=== PATIENT | female | born 1970 | race Caucasian/White ===

== ENCOUNTER 2020-06-26 14:49 | Outpatient (REF) | payer OTHER, SELFPAY | END 2020-06-26 14:50 | disposition home or self-care (01) | LOC: HO.LAB 14:49 | PROVIDERS: Visit Provider Internal Medicine | DX: Z20.822 Contact with and (suspected) exposure to COVID-19 (principal) | CPT/HCPCS: 36415; C9803; U0003; U0005 ==

== ENCOUNTER 2021-01-03 12:12 | Outpatient (REF) | payer OTHER, SELFPAY ==
[2021-01-03 14:18] LABS: Basophils Percent Auto 0.3 % (0-2); Eosinophils Absolute Auto 0.3 X10*3/uL (0.0-0.4); Eosinophils Percent Auto 2.8 % (0-4); Hematocrit 35.3 % (37-47); Hemoglobin 11.3 g/dl (12.0-16.0); Imm Gran Abs Auto 0.16 X10*3/uL (0.00-0.03); Imm Gran Pct Auto 1.5 % (0.0-0.4); Lymphocytes Absolute Auto 2.4 X10*3/uL (1.2-4.9); Lymphocytes Percent Auto 22.8 % (20-40); Mean Corpuscular Hemoglobin 26.8 pg (27.0-33.0); Mean Corpuscular Volume 83.8 fL (80-98); Mean Platelet Volume 10.6 fL (9.4-12.3); Monocytes Absolute Auto 0.8 X10*3/uL (0.1-1.2); Monocytes Percent Auto 7.1 % (2-11); Neutrophils Percent Auto 65.5 % (45-73); Platelet Count 382 X10*3/uL (160-400); Red Blood Count 4.21 X10*6/uL (4.20-5.50); White Blood Count 10.7 X10*3/uL (4.8-10.8)
[2021-01-03 14:19] LABS: MANUAL DIFF FLAG NO
[2021-01-03 14:41] LABS: Alanine Aminotransferase 19 U/L (0-31); Albumin Level 3.7 g/dL (3.5-5.0); Alkaline Phosphatase 111 U/L (39-117); Anion Gap 10 (12-20); Aspartate Amino Transferase 13 U/L (5-31); Bilirubin Total 0.4 mg/dL (0.0-1.0); Blood Urea Nitrogen 9 mg/dL (9-16); Calcium 9.6 mg/dL (8.4-10.2); Carbon Dioxide 32 mmol/L (22-29); Chloride 104 mmol/L (96-108); Cholesterol 226 mg/dL; Estimated Glomerular Filt Rate > 60; Glucose Random 113 mg/dL (60-115); HDL Cholesterol 44 mg/dL; LDL Cholesterol Calculated 152 mg/dl; Potassium 4.5 mmol/L (3.3-5.1); Sodium 141 mmol/L (135-145); Total Protein 6.9 g/dL (6.5-8.0); Triglycerides 153 mg/dL
[2021-01-03 14:47] LABS: B Type Natriuretic Peptide 26 pg/mL (<100); Troponin-I High Sensitivity < 3.5 ng/L (<3.5-17.0)
[2021-01-03 15:01] LABS: Thyroid Stimulating Hormone 3.94 uIU/mL (0.32-4.0)
== END 2021-01-03 12:13 | disposition home or self-care (01) ==
LOC: HO.WFDLDS 12:12
PROVIDERS: Visit Provider Family Medicine
DX: Z00.00 Encounter for general adult medical examination without abnormal findings (principal); Z20.822 Contact with and (suspected) exposure to COVID-19; R05 Cough; R07.89 Other chest pain; R06.02 Shortness of breath; I50.9 Heart failure, unspecified; E03.9 Hypothyroidism, unspecified
CPT/HCPCS: 36415; 80053; 80061; 83880; 84443; 84484; 85025; U0003; U0005

== ENCOUNTER → 2021-02-05 14:58 | Outpatient (BNVA) | payer OTHER, SELFPAY | PROVIDERS: PCP Family Medicine; Referring Provider Family Medicine; Visit Provider Internal Medicine | DX: R07.2 Precordial pain (principal); R06.02 Shortness of breath; I69.951 Hemiplegia and hemiparesis following unspecified cerebrovascular disease affecting right dominant side; I10 Essential (primary) hypertension; E66.01 Morbid (severe) obesity due to excess calories; Z68.43 Body mass index [BMI] 50.0-59.9, adult; Z88.1 Allergy status to other antibiotic agents; Z79.899 Other long term (current) drug therapy | CPT/HCPCS: 99202 ==

== ENCOUNTER → 2021-02-12 10:01 | Outpatient (REF) | payer OTHER, SELFPAY ==
--- NOTE | 2021-02-12 10:05 | CA_ITS ---
Acquisition Time: 2021-02-12 10:08:43 Total Exercise Time: 00:02:28 Test Indications: Dyspnea Medications: AMLODIPINE ALBUTEROL FUROSEMUDE HCTZ METOPROLOL OMEPRAZOLE Protocol: SOHAIL Max HR: 125 BPM 73% of Pred: 170 BPM Max BP: 164/084 mmHG Max Work Load: 4.6 METS Exercise stress test with exercise 2 min 28 sec of Sohail protocol, with moderate shortness , fatigue and chest tightness with request to stop exercise, without arrythmia, with normotensive response to exercise, with nondiagnostic EKG due to suboptimal heart rate, exercise time and baselne abnormality. Symptoms resolved in recovery. Test reviewed with Dr Parish. Will order a pharmacological nuclear stress test for further evaluation. Referred By: Henrry Asencio Overread By: MARGOTH LARSON
== END ==
LOC: HO.CARD 10:01
PROVIDERS: PCP Family Medicine; Visit Provider Family Medicine
DX: R07.89 Other chest pain (principal); R06.02 Shortness of breath
CPT/HCPCS: 93017

== ENCOUNTER 2021-02-25 08:52 | Outpatient (REF) | payer OTHER, SELFPAY ==
[2021-02-25 11:22] LABS: Alanine Aminotransferase 21 U/L (0-31); Albumin Level 3.8 g/dL (3.5-5.0); Alkaline Phosphatase 94 U/L (39-117); Anion Gap 10 (12-20); Aspartate Amino Transferase 17 U/L (5-31); Bilirubin Total 0.3 mg/dL (0.0-1.0); Blood Urea Nitrogen 9 mg/dL (9-16); Carbon Dioxide 30 mmol/L (22-29); Chloride 101 mmol/L (96-108); Estimated Glomerular Filt Rate > 60; Glucose Random 105 mg/dL (60-115); Iron 43 mcg/dL (30-160); Percent Iron Saturation 12 % (15-50); Potassium 3.9 mmol/L (3.3-5.1); Sodium 137 mmol/L (135-145); Total Iron Binding Capacity 371 mcg/dL (228-428); Total Protein 6.8 g/dL (6.5-8.0); Unsaturated Iron Binding 328 ug/dL
[2021-02-25 11:44] LABS: Ferritin 33 ng/mL (10-250)
[2021-02-26 11:41] LABS: Transferrin 302 mg/dL (188-341)
== END 2021-02-25 08:53 | disposition home or self-care (01) ==
LOC: HO.LAB 08:52
PROVIDERS: PCP Family Medicine; Referring Provider Family Medicine; Visit Provider Nurse Practitioner Family
DX: G47.9 Sleep disorder, unspecified (principal); G25.81 Restless legs syndrome; R06.02 Shortness of breath; D64.9 Anemia, unspecified
CPT/HCPCS: 36415; 80053; 82728; 83540; 84466; 99202

== ENCOUNTER → 2021-03-05 08:31 | Outpatient (REF) | payer OTHER, SELFPAY ==
--- NOTE | ~2021-03-05 | NM_ITS ---
Lexiscan Myocardial perfusion study Indication: Chest pain, assess for coronary disease and ischemia Technique: The patient was brought in for a Lexiscan perfusion study on 03/05/2021 and was injected 0.4 mg of Lexiscan intravenously. Within a minute of this injection 45 mCi of sestamibi was given intravenously. Images were obtained using the SPECT gamma camera interlaced with the gating device. Images were obtained in supine position. Resting perfusion study was performed on 04/02/2021. Patient was administered 45 mCi of sestamibi intravenously at rest. Images were then obtained in supine position. Total DLP 196mGy-cm. Images were processed with the software and compared side to side in short axis, horizontal long axis and vertical long axis views. Findings: Raw acquisition was reviewed. The stress perfusion study showed diminished tracer uptake along the anterior wall; distal anterolateral wall; basal septum. No significant improvement with CT attenuation correction and in fact it looks slightly worse. The gated study shows low normal LV systolic function with calculated LVEF of 53%. LV cavity is normal in size. The gated study shows normal wall thickening and contraction of segments. Resting study shows no significant perfusion abnormality. Gating at rest reveals normal wall motion with ejection fraction at 47%. The findings are consistent with reversible perfusion defect in the anterior wall; distal anterolateral wall and basal septum. NM/NM rajiv perf SPECT rest & str Impression: 1. Myocardial perfusion imaging study shows possible ischemia versus soft tissue attenuation artifact in the anterior wall; distal lateral wall; basal septum. Due to almost 1 month delay in getting resting images, changes in weight, body composition could play a role. Consider further workup as clinically indicated. 2. Gated LVEF is 53% during stress and 47% during rest. 3. Transient ischemic dilatation not present. EKG component of the test reported separately.
--- NOTE | 2021-03-05 08:36 | CA_ITS ---
Acquisition Time: 2021-03-05 08:57:02 Total Exercise Time: 00:02:00 Test Indications: CP, SOB Medications: SEE CHART Protocol: LEXISCAN Max HR: 097 BPM 57% of Pred: 170 BPM Max BP: 156/072 mmHG Max Work Load: 1.0 METS Pharmacological stress test with Lexiscan injection, while sitting and kicking her legs, without anginal symptoms, without arrythmia, with normotensive response to injection, with nondiagnostic EKG for ischemia. In recovery she reported feeling sob, lightheaded, headache which were treated with Aminophylline 75mg IVP to reverse Lexiscan with resolution of symptoms. Nuclear images pending. Test reviewed with Dr Parish. Referred By: Preethi Joseph Overread By: PREETHI JOSEPH
== END ==
LOC: HO.CARD 08:31
PROVIDERS: PCP Family Medicine; Visit Provider Nurse Practitioner Family
DX: R07.2 Precordial pain (principal); R94.39 Abnormal result of other cardiovascular function study
CPT/HCPCS: 78452; 93017; A9500; J0280; J2785

== ENCOUNTER → 2021-03-11 14:55 | Outpatient (REF) | payer OTHER, SELFPAY ==
--- NOTE | 2021-03-11 14:58 | CA_ITS ---
Transthoracic Echocardiogram Patient (Last, First, Middle): Jessie Vee, Gender: Female Date of : 1970 Age: 50 Procedure Date: 03/11/2021 Procedure Type: Transthoracic Echocardiogram Location: OP Height: 152.4 cm Weight: 134.27 kg BSA: 2.21 m2 Heart Rate: bpm BP: 126 / 80 mmHg Salesperson Driver: Referring MD: Hira Tamez MD Symptoms: R07.2 - Precordial pain Study Quality: Fair/ Contrast used ECG Rhythm: Sinus Conclusions: - The left ventricular systolic function is normal. The visually estimated ejection fraction is between 65-70%. - There is moderately increased left ventricular wall thickness. - No obvious valvular pathology seen on this study. Findings Procedure Information Contrast agent, definity, is being given per protocol without apparent complications. Left Ventricle Normal left ventricular cavity size. There is moderately increased left ventricular wall thickness. The left ventricular systolic function is normal. The visually estimated ejection fraction is between 65-70%. E/E prime ratio is >15, consistent with elevated filling pressures. Evidence suggests grade I (mild) diastolic dysfunction. Right Ventricle Normal right ventricular cavity size and systolic function. Atria Both atria are normal in size. Aortic Valve The aortic valve was not well visualized. There is no aortic valve stenosis. There is no aortic valve regurgitation. Mitral Valve The mitral valve appears normal. There is mild mitral annular calcification. There is no mitral valve regurgitation. There is no mitral valve stenosis. Pulmonic Valve The pulmonic valve was not well visualized. Tricuspid Valve The tricuspid valve was not well visualized. There is trace tricuspid valve regurgitation. Tricuspid regurgitation envelope is inadequate for calculation of right ventricular systolic pressure. Great Vessels The asc aorta is normal in size. Venous The inferior vena cava is normal in size and collapses greater than 50% with inspiration. Pericardium/Pleural There is no evidence of pericardial effusion. Prior Study Comparison Changes noted compared to prior study dated: 12/02/2016. Progression of LVH. Recommendations, Care & Conclusions No obvious valvular pathology seen on this study. Measurements 2D Linear Measurements IVSd: 1.42 0.6-0.9/0.6-1.0 cm LVIDd: 3.82 3.9-5.3/4.2-5.9 cm LVIDd Index: 1.73 2.4-3.2/2.2-3.1 cm/m2 LVIDs: 2.43 2.0-3.6 cm LVPWd: 1.42 0.7-1.1 cm Ao Root: 3.50 2.1-3.5 cm LA Diam: 3.50 2.7-3.8/3.0-4.0 cm LAIDs Index: 1.58 1.5-2.3 cm/m2 LV Mass: 249.25 67-162/88-224 g LV Mass Index: 112.78 43-95/49-115 g/m2 LVOT Diam: 2.10 3.0+(-)1.3 cm Mitral Valve MV Pk E: 1.01 MV PK A: 1.06 MV Decel Time: 209.00 E/A: 1.00 E'Lateral: 6.53 E'Medial: 5.44 E/E' Med: 18.60 E/E' Lat: 15.50 PHT: 61.00 MVA PHT: 3.61 Decel [place]: 4.85 Aortic Valve AoV Pk Sukhjinder: 1.81 AoV Mn Sukhjinder: 1.15 AoV VTI: 0.40 AoV Pk Grad: 13.00 Aov Mn Grad: 6.00 ASHLEY Cont.VTI: 2.40 LVOT LVOT Pk Sukhjinder: 1.14 LVOT Mn Sukhjinder: 0.88 LVOT VTI: 0.28 LVOT Pk Grad: 5.00 LVOT Mn Grad: 3.00 LVOT Diam: 2.10 LVOT Area: 3.46 Diastolic Function MV Pk E: 1.01 MV Pk A: 1.06 E/A: 1.00 E'Medial: 5.44 E/E' Med: 18.60 E' Laterial: 6.53 E/E' Lat: 15.50 Right Ventricle TAPSE (mm): 32.00 TVS' Sukhjinder: 14.00 Great Vessels Aorta Ao Root-2D: 3.50 2.0-3.7 cm Ao Asc: 3.00 2.1-3.4 cm Pulmonary Valve PV Pk Sukhjinder: 1.19 Peak PV Grad: 6.00 Updated in Other Vendor System with Status of Final Hira Tamez MD electronically signed on 03/12/2021 11:52:27 AM with status of Final
== END ==
LOC: HO.CARD 14:55
PROVIDERS: Visit Provider Internal Medicine
DX: R07.2 Precordial pain (principal)
CPT/HCPCS: 93306; Q9957

== ENCOUNTER 2021-04-02 15:49 | Outpatient (REF) | payer OTHER, SELFPAY ==
--- NOTE | ~2021-04-02 | MM_ITS ---
EXAMINATION: MM SCREENING DIGITAL BREAST TOMOSYNTHESIS, BILATERAL CLINICAL INFORMATION: Screening. Asymptomatic. The lifetime risk of breast cancer based on the Tyrer-Cuzick Model is 24.2. Additional annual screening with breast MRI may be of benefit in women with a Score of 20% or greater. COMPARISON: Mammography: 04/25/2018 and 03/27/2016 TECHNIQUE: Digital breast tomosynthesis is performed in both the craniocaudal and mediolateral oblique views along with computer-aided detection (CAD). Synthesized 2-D images are generated from the tomosynthesis. FINDINGS: There are scattered areas of fibroglandular density (ACR BI-RADS breast composition Category b). The right breast has a stable parenchymal pattern without new abnormal dominant mass or suspicious grouping of microcalcifications. About the lateral aspect of the left breast 10 cm from the nipple, there is a circumscribed somewhat lobular density measuring 9 x 6 mm in size which may represent an intramammary lymph node adjacent to a vessel. Spot compression view in craniocaudal projection and ultrasound is recommended. There is also a small circumscribed density about the medial aspect of the left breast approximately 9 cm from the nipple, which measures 5 x 3 mm in size. Spot compression view is recommended in craniocaudal projection. MM/MM tomosynthesis screening BI IMPRESSION: Two left breast densities, as described, for which spot compression view and possible ultrasound is recommended. ASSESSMENT: BI-RADS 0: Incomplete - Need Additional Imaging Evaluation. RECOMMENDATION: 1. Additional views of the left breast. 2. Targeted ultrasound if warranted after review of the additional views. 3. Radiology department staff will contact the patient for additional imaging.
== END 2021-04-02 15:50 | disposition home or self-care (01) ==
LOC: HO.MAMMO 15:49
PROVIDERS: Visit Provider Family Medicine
DX: Z12.31 Encounter for screening mammogram for malignant neoplasm of breast (principal)
CPT/HCPCS: 77063; 77067

== ENCOUNTER 2021-05-07 13:03 | Outpatient (REF) | payer OTHER, SELFPAY ==
--- NOTE | ~2021-05-07 | MM_ITS ---
EXAMINATION: MM DIAGNOSTIC DIGITAL BREAST TOMOSYNTHESIS, LEFT US DIAGNOSTIC ULTRASOUND BREAST, LEFT CLINICAL INFORMATION: Recall from screening for 2 questionable findings, mid inner left breast and mid outer left breast on CC views. Family history breast cancer, mother age 70, sister age 36. TC score 24%. COMPARISON: Mammography: 04/02/2021, 04/25/2018, 03/27/2016 TECHNIQUE: Digital breast tomosynthesis is performed. 2D images are generated from the tomosynthesis. The following views are obtained: Spot CC outer, spot CC inner. Ultrasound left breast is targeted to the outer breast using grayscale imaging and color Doppler without and with harmonics. FINDINGS: There are scattered areas of fibroglandular density (ACR BI-RADS breast composition Category b). The additional views demonstrate no persistent parenchymal asymmetry inner left breast. The additional views show no definite three-dimensional mass and no architectural abnormality in the outer left breast. There is a vague oval isoattenuation with internal fatty composition in the outer left breast which may correspond to the finding for recall. This could represent an island of fibroglandular tissue or perhaps fat necrosis. There is no architectural abnormality or associated calcification. Ultrasound outer left breast demonstrates subtle oval hyperechoic area 2:00 position 10 cm from nipple measuring under 1 cm. There are 2 tiny internal cystic foci within the hyperechogenicity. The ultrasound features are most suggestive of sequela from prior trauma such as fat necrosis. Results are discussed with the patient at time of visit. Patient does not recall any prior history of trauma outer left breast. The findings appear probably benign and short interval six-month follow-up mammography and ultrasound are recommended. MM/MM tomosynthesis added views L IMPRESSION: 1. Suspect sequela from occult trauma upper outer left breast under 1 cm on ultrasound. 2. No abnormality inner left breast. ASSESSMENT: BI-RADS 3: Probably Benign RECOMMENDATION: 1. Diagnostic left mammography and targeted left breast ultrasound in 6 months. 2. The lifetime risk of breast cancer based on the Tyrer-Cuzick Model is 24%. Additional annual adjunct screening with breast MRI may be of benefit in women with a risk score of 20% or greater. This patient's information was entered into a reminder system with a target due date for their next mammogram.
== END 2021-05-07 13:04 | disposition home or self-care (01) ==
LOC: HO.MAMMO 13:03
PROVIDERS: PCP Family Medicine; Visit Provider Family Medicine
DX: R92.2 Inconclusive mammogram (principal); R07.2 Precordial pain; R06.02 Shortness of breath; I10 Essential (primary) hypertension; I51.7 Cardiomegaly; R94.39 Abnormal result of other cardiovascular function study; E66.01 Morbid (severe) obesity due to excess calories; Z86.73 Personal history of transient ischemic attack (TIA), and cerebral infarction without residual deficits; Z79.899 Other long term (current) drug therapy
CPT/HCPCS: 76642; 77061; 77065; 99212

== ENCOUNTER 2021-07-04 10:13 | Outpatient (REF) | payer OTHER, SELFPAY ==
[2021-07-04 13:44] LABS: MANUAL DIFF FLAG NO
[2021-07-04 13:46] LABS: Basophils Percent Auto 0.4 % (0-2); Eosinophils Absolute Auto 0.3 X10*3/uL (0.0-0.4); Eosinophils Percent Auto 4.2 % (0-4); Hematocrit 38.4 % (37.0-47.0); Hemoglobin 12.3 g/dl (12.0-16.0); Imm Gran Abs Auto 0.02 X10*3/uL (0.00-0.03); Imm Gran Pct Auto 0.3 % (0.0-0.4); Lymphocytes Absolute Auto 2.4 X10*3/uL (1.2-4.9); Lymphocytes Percent Auto 32.7 % (20-40); Mean Corpuscular Hemoglobin 26.9 pg (27.0-33.0); Mean Corpuscular Volume 83.8 fL (80.0-98.0); Mean Platelet Volume 11.2 fL (9.4-12.3); Monocytes Absolute Auto 0.6 X10*3/uL (0.1-1.2); Monocytes Percent Auto 7.6 % (2-11); Neutrophils Absolute Auto 4.1 x10*3/uL (2.0-8.3); Neutrophils Percent Auto 54.8 % (45-73); Platelet Count 352 X10*3/uL (160-400); Red Blood Count 4.58 X10*6/uL (4.20-5.50); Red Cell Distribution Width 15.4 % (11.0-16.0); White Blood Count 7.4 X10*3/uL (4.8-10.8)
[2021-07-04 13:59] LABS: Anion Gap 11 (12-20); Blood Urea Nitrogen 9 mg/dL (9-16); Calcium 9.1 mg/dL (8.4-10.2); Carbon Dioxide 31 mmol/L (22-29); Chloride 102 mmol/L (96-108); Estimated Glomerular Filt Rate > 60; Glucose Random 115 mg/dL (60-115); Potassium 3.9 mmol/L (3.3-5.1); Rheumatoid Factor < 15.0 IU/mL (<15.0); Sodium 140 mmol/L (135-145)
[2021-07-04 14:28] LABS: Erythrocyte Sedimentation Rate 21 MM/HR (0-20)
[2021-07-07 21:01] LABS: CRP High Sensitivity >10.0 mg/L
== END 2021-07-04 10:14 | disposition home or self-care (01) ==
LOC: HO.WFDLDS 10:13
PROVIDERS: Visit Provider Family Medicine
DX: Z00.00 Encounter for general adult medical examination without abnormal findings (principal); M65.9 Synovitis and tenosynovitis, unspecified; M53.3 Sacrococcygeal disorders, not elsewhere classified
CPT/HCPCS: 36415; 80048; 85025; 85652; 86141; 86431

== ENCOUNTER → 2021-07-24 13:04 | Outpatient (REF) | payer OTHER, SELFPAY | LOC: HO.SL 13:04 | PROVIDERS: PCP Family Medicine; Visit Provider Nurse Practitioner Family | DX: R06.83 Snoring (principal); R06.02 Shortness of breath; G47.19 Other hypersomnia; G47.9 Sleep disorder, unspecified; E66.01 Morbid (severe) obesity due to excess calories; I10 Essential (primary) hypertension | CPT/HCPCS: 95806 ==

== ENCOUNTER 2021-11-02 17:16 | Emergency (ER) | payer SELFPAY ==
[2021-11-02 17:22] VITALS: BP 149/67; PULSE 75; RESP 16; TEMP 36.1; O2SAT 97; BMI 52.7
--- NOTE | 2021-11-02 18:34 | ED_ITS ---
HPI - General Adult General Chief complaint: Animal Bite Stated complaint: Cat Scratch Left Arm (Pts Cat) Time Seen by Provider: 11/02/21 18:34 Source: patient Mode of arrival: ambulatory Limitations: no limitations History of Present Illness HPI narrative: Patient is a 51 year old female presenting to the emergency department today after cat bites and scratches to her right forearm. Patient states that she was attacked by her daughters cat because she went by the cat's kittens. Patient states that the cat is going to be quarantined and monitored. Patient states that her last tetanus shot was 10 years ago. Patient denies any dizziness, lightheadedness, abdominal pain, nausea, vomiting, fever, chills, blurry vision, double vision, loss of vision, chest pain, difficulty breathing, shortness of b reath, back pain, night sweats, pain with urination, increased urinary frequency, increased urinary urgency, blood in her urine or stool, syncope or a near syncopal episode, recent trauma or falls, bowel incontinence, bladder incontinence, bowel retention, bladder retention, or any other complaints at this time. Onset (ago): hour(s) Location: right and upper extremity Radiation: non-radiation Severity: mild Severity scale (1-10): 3 Quality: dull Pain Consistency: constant Relieving factors: none Exacerbating factors: none Associated symptoms: denies other symptoms Treatments prior to arrival: none Related Data Home Medications Medication Instructions Recorded Confirmed cetirizine 10 mg tablet 10 mg PO DAILY 11/28/20 05/07/21 Previous Rx's Medication Instructions Recorded albuterol sulfate 90 mcg/actuation 2 puff inhalation Q4-6H PRN 01/10/21 aerosol inhaler (ProAir HFA) shortness of breath or wheezing 30 days #8.5 grams furosemide 20 mg tablet 10 mg PO DAILY 30 days #15 tabs 01/15/21 omeprazole 40 mg capsule,delayed 40 mg PO DAILY 30 days #30 caps 01/16/21 release amlodipine 10 mg tablet 10 mg PO DAILY 90 days #90 tabs 07/04/21 hydrochlorothiazide 25 mg tablet 25 mg PO DAILY 90 days #90 tabs 07/04/21 meloxicam 15 mg tablet 15 mg PO DAILY 30 days #30 tabs 07/04/21 metoprolol succinate 100 mg 100 mg PO DAILY 90 days #90 tabs 07/04/21 tablet,extended release 24 hr prednisone 20 mg tablet 40 mg PO DAILY 4 days #8 tabs 07/04/21 amoxicillin 875 mg-potassium 1 tab PO BID 7 days #14 tabs 11/02/21 clavulanate 125 mg tablet Allergies Allergy/AdvReac Type Severity Reaction Status Date / Time clindamycin [CLINDAMYCIN] Allergy Severe RASH Verified 07/04/21 09:58 Review of Systems Constitutional: Constitutional: Reports no additional constitutional complaints, Denies chills, Denies fever(s) and Denies night sweats Eyes: Eyes: Reports no additional eye complaints, Denies blurry vision, Denies change in vision, Denies diplopia, Denies eye discharge, Denies loss of vision and Denies eye pain ENT: Denies dizziness Cardiovascular: Cardiovascular: Reports no additional cardiovascular complaints, Denies chest pain, Denies lightheadedness, Denies Loss of Consciousness and Denies dyspnea Respiratory: Respiratory: Reports no additional respiratory complaints and Denies dyspnea Gastrointestinal: Gastrointestinal: Reports no additional gastrointestinal complaints, Denies abdominal pain, Denies melena, Denies hematochezia, Denies change in bowel habits and Denies change in stool character Genitourinary: Genitourinary: Denies hematuria, Denies urinary frequency, Denies dysuria, Denies urinary incontinence, Denies urinary hesitancy and Denies urinary urgency Musculoskeletal: Musculoskeletal: Reports no additional musculoskeletal complaints, Denies numbness and Denies tingling Integumentary/Breasts: Comments: right forearm has multiple cat scratches and bites Neurologic: Denies dizziness, Denies loss of vision, Denies numbness and Denies tingling Psychiatric: Psychiatric: Reports no additional psychiatric complaints Endocrine: Endocrine: Reports no additional endocrine complaints Hematologic/Lymphatic: Hematologic/Lymphatic: Reports no additional hematologic/lymphatic complaints Allergic/Immunologic: Allergic/Immunologic: Reports no additional allergic/immunologic complaints [facility], LAT[facility] Past Medical History Attestation statement: The following information was validated with the patient. Source: old records reviewed Medical History Essential hypertension Lower extremity edema Stroke Surgical History No pertinent past surgical history Family History Family History Mother No problems noted. Father No problems noted. Social History Social History Household Members: Children Housing: House Alcohol intake: current Alcohol intake frequency: does not drink Patient Tobacco Use Status: Never used Tobacco e-Cigarette/Vaping Use: Never Used Second Hand Smoke Exposure: No Advance Directives: No Advance Directives Information Provided: No service: No Current occupational status: unemployed Current occupational exposures/hazards: No Cognitive needs: No Hearing needs: No Vision needs: No Physical Exam ED Vital Signs: Vital Signs - 24 hr 11/02/21 17:22 Temperature 96.9 F Pulse Rate 75 Respiratory Rate 16 Blood Pressure 149/67 H Pulse Oximetry 97 Oxygen Delivery Method Room Air BMI result Body Mass Index 52.7 Const General: cooperative, no acute distress, alert and awake Nutritional Appearance: well nourished Orientation/consciousness: patient oriented x3 Limitations: no limitations HENMT Head: Yes normal to inspection and Yes atraumatic Ears: hearing grossly normal bilaterally and external ears normal General nose exam: Normal external nose present, no nasal discharge noted and no epistaxis Face and sinus: Yes normal facial exam, No abrasion and No laceration Mouth: Normal oral and palatal mucosa present, no drooling and no muffled voice Eyes General: appearance normal, both eyes and all related structures Periorbital: periorbital findings normal Eyelids: Yes eyelids normal Conjunctivae: conjunctivae normal Pupils: Equal, round and reactive pupils present EOM: EOMs intact bilaterally Neck Neck: Yes normal visual inspection, Yes full ROM and Yes no lymphadenopathy Chest Chest palpation & inspection: normal inspection of the chest Resp Effort & Inspection: normal respiratory effort and able to speak in complete sentences Auscultation: clear to auscultation bilaterally Cardio Rate: regular rate Rhythm: regular rhythm GI Inspection: Yes normal to inspection Skin Other: multiple scratches and a bite wound present to the right forearm, no active bleeding Neuro General: patient oriented x3 and moves all extremities Cranial nerves: Yes Equal, round and reactive pupils present Cognition (Neuro): normal cognition Motor exam (neuro): 5/5 motor strength present throughout Sensory Exam: Normal double simultaneous stimulation for sensation Coordination: [id number] test normal Extrem General: Yes normal to inspection, Yes full ROM and Yes capillary refill normal Psych Appearance: grossly normal Mental Status: mental status grossly normal Affect: normal affect Attitude: cooperative Thought process: Normal thought process present Thought content: Normal thought content present Insight: Good insight present (Psych) Medical Decision Making MDM Narrative Medical decision making narrative: Patient is a 51 year old female presenting to the emergency department today with right forearm pain. Patient's physical exam showed multiple cat scratches and a bite wound with no active bleeding. I explained my physical exam findings to the patient. I answered all questions asked by the patient. Patient received a dose of PO Augmentin while in the department and was brought up to date on Tetanus. I stressed the importance of the patient taking her medication as prescribed. I stressed the importance of the patient following up with her primary care provider. I stressed the importance of the patient returning to the emergency department immediately if her symptoms were to worsen or if she were to develop any dizziness, shortness of breath, difficulty breathing, chest pain, blurry vision, loss of vision, nausea, vomiting, abdominal pain, fever, chills, back pain, or any other complaints. Patient verbalized agreement and understanding with this treatment plan and discharge. Differential Diagnosis Differential Diagnosis: cat bite, cat scratches Medical Records Medical records reviewed: Yes I reviewed the patient's medical records. Discharge Plan Discharge Clinical Impression: Cat bite Patient Disposition: Home, Self-Care Instructions: Animal Bite (ED) Additional Instructions: Follow up with your primary care provider. Return to the emergency department immediately if your symptoms worsen or if you develop any dizziness, shortness of breath, difficulty breathing, chest pain, blurry vision, loss of vision, nausea, vomiting, abdominal pain, fever, chills, back pain, or any other complaints. Prescriptions: New amoxicillin-pot clavulanate 875-125 mg tablet 1 tab PO BID 7 Days Qty: 14 0RF No Action furosemide 20 mg tablet 10 mg PO DAILY 30 Days Qty: 15 1RF Rx Instructions: 1/2 tab daily cetirizine 10 mg tablet 10 mg PO DAILY albuterol sulfate [ProAir HFA] 90 mcg/actuation HFA aerosol inhaler 2 puff inhalation Q4-6H PRN (Reason: shortness of breath or wheezing) 30 Days Qty: 8.5 1RF omeprazole 40 mg capsule,delayed release(DR/EC) 40 mg PO DAILY 30 Days Qty: 30 0RF meloxicam 15 mg tablet 15 mg PO DAILY 30 Days Qty: 30 0RF Rx Instructions: Take with food prednisone 20 mg tablet 40 mg PO DAILY 4 Days Qty: 8 0RF hydrochlorothiazide 25 mg tablet 25 mg PO DAILY 90 Days Qty: 90 2RF amlodipine 10 mg tablet 10 mg PO DAILY 90 Days Qty: 90 2RF metoprolol succinate 100 mg tablet extended release 24 hr 100 mg PO DAILY 90 Days Qty: 90 2RF Referrals: Henrry Asencio MD [Primary Care Provider] - (Follow up with your PCP.) Interventions: ED Discharge Assessment Last Done: 11/02/21 19:33 Discharge Date/Time: 11/02/21 19:34 Print Language: Nepali
[2021-11-02] MEDS: Diphth,Pertus(ACell),Tet Adult 0.5 ML SYRINGE IM (19:21)
[2021-11-02] MEDS: Amoxicillin/Potassium Clav 875 MG TABLET PO (19:21)
== END 2021-11-02 19:34 | disposition home or self-care (01) ==
PROVIDERS: Emergency Provider Emergency Medicine; PCP Family Medicine
DX: S50.871A Other superficial bite of right forearm, initial encounter (principal); M79.631 Pain in right forearm; W55.01XA Bitten by cat, initial encounter; Y93.9 Activity, unspecified; Y92.9 Unspecified place or not applicable; Y99.9 Unspecified external cause status; Z79.899 Other long term (current) drug therapy
CPT/HCPCS: 90471; 90715; 99282; 99284

== ENCOUNTER 2022-06-05 14:24 | Emergency (ER) | payer MEDICAID, SELFPAY ==
--- NOTE | ~2022-06-05 | XR_ITS ---
EXAMINATION: XR CHEST CLINICAL INFORMATION: Shortness of breath COMPARISON: 08/25/2019 TECHNIQUE: 2 views of the chest were obtained. FINDINGS: Flocculent opacities in the mid to lower lung on the left. Question some mild opacities in the mid to lower lung on the right. The cardiac silhouette is within normal limits. There is no effusion present. XR/XR chest 2V IMPRESSION: Left-sided infiltrate. Question more mild area of infiltrate in the right mid to lower lung
[2022-06-05 14:31] VITALS: BP 200/81; PULSE 95; RESP 16; TEMP 36.8; O2SAT 95; BMI 46.3
--- NOTE | 2022-06-05 14:31 | ED.GENADULT ---
HPI - General Adult General Chief complaint: Asthma <NITZA Aden - Last Filed: 06/05/22 14:35> Stated complaint: trouble breathing <NITZA Aden - Last Filed: 06/05/22 14:35> Time Seen by Provider: 06/05/22 15:42 <NITZA Aden - Last Filed: 06/05/22 14:35> Source: patient <NITZA Davis Last Filed: 06/05/22 17:54> Mode of arrival: ambulatory <NITZA Davis - Last Filed: 06/05/22 17:54> Limitations: no limitations <NITZA Davis Last Filed: 06/05/22 17:54> History of Present Illness HPI narrative: 51-year-old female with history of morbid obesity, hypertension, hyperlipidemia, NAHOMY, mild anemia, CVA who presents to the ER for evaluation of shortness of breath and chest tightness that started yesterday. She reports the shortness of breath is worse with exertion. The chest tightness comes and goes. She has been coughing but not bringing up any phlegm. She denies any fevers but reports chills. No known sick contacts. She denies any history of asthma but was prescribed an albuterol inhaler for some reason many years ago. She is a nonsmoker. She does not have a primary care doctor and has never seen a lung doctor before. In the ER she was found to have shortness of breath with audible wheezing. SpO2 93%, speaking complete sentences <NITZA Davis - Last Filed: 06/05/22 17:54> MD complaint: Shortness of breath <NITZA Davis - Last Filed: 06/05/22 17:54> Onset (ago): day(s) (1) <NITZA Davis Last Filed: 06/05/22 17:54> Location: chest <NITZA Davis Last Filed: 06/05/22 17:54> Radiation: non-radiation <NITZA Davis Last Filed: 06/05/22 17:54> Severity: moderate <NITZA Davis Last Filed: 06/05/22 17:54> Quality: stabbing <NITZA Davis - Last Filed: 06/05/22 17:54> Pain Consistency: intermittent <NITZA Davis Last Filed: 06/05/22 17:54> Relieving factors: rest <NITZA Davis Last Filed: 06/05/22 17:54> Exacerbating factors: movement <NITZA Davis Last Filed: 06/05/22 17:54> Associated symptoms: chest pain, cough and shortness of breath <NITZA Davis Last Filed: 06/05/22 17:54> Treatments prior to arrival: none <NITZA Davis Last Filed: 06/05/22 17:54> Related Data Home medications: Home Medications Medication Instructions Recorded Confirmed cetirizine 10 mg tablet 10 mg PO DAILY 11/28/20 05/07/21 Previous Rx's Medication Instructions Recorded albuterol sulfate 90 mcg/actuation 2 puff inhalation Q4-6H PRN 01/10/21 aerosol inhaler (ProAir HFA) shortness of breath or wheezing 30 days #8.5 grams furosemide 20 mg tablet 10 mg PO DAILY 30 days #15 tabs 01/15/21 omeprazole 40 mg capsule,delayed 40 mg PO DAILY 30 days #30 caps 01/16/21 release amlodipine 10 mg tablet 10 mg PO DAILY 90 days #90 tabs 07/04/21 hydrochlorothiazide 25 mg tablet 25 mg PO DAILY 90 days #90 tabs 07/04/21 meloxicam 15 mg tablet 15 mg PO DAILY 30 days #30 tabs 07/04/21 metoprolol succinate 100 mg 100 mg PO DAILY 90 days #90 tabs 07/04/21 tablet,extended release 24 hr prednisone 20 mg tablet 40 mg PO DAILY 4 days #8 tabs 07/04/21 amoxicillin 875 mg-potassium 1 tab PO BID 7 days #14 tabs 11/02/21 clavulanate 125 mg tablet albuterol sulfate 90 mcg/actuation 2 puff inhalation Q4-6H PRN 06/05/22 aerosol inhaler shortness of breath or wheezing #8.5 grams amlodipine 10 mg tablet 10 mg PO DAILY #30 tabs 06/05/22 azithromycin 250 mg tablet See Rx Instructions PO .COMPLEX #6 06/05/22 (Zithromax Z-Sathya) tabs cefpodoxime 200 mg tablet 200 mg PO BID #14 tabs 06/05/22 hydrochlorothiazide 12.5 mg tablet 12.5 mg PO QAM #30 tabs 06/05/22 metoprolol succinate 100 mg 100 mg PO DAILY #30 tabs 06/05/22 tablet,extended release 24 hr (Toprol XL) prednisone 50 mg tablet 50 mg PO DAILY #5 tabs 06/05/22 <NITZA Aden - Last Filed: 06/05/22 14:35> Allergies/adverse reactions: Allergies Allergy/AdvReac Type Severity Reaction Status Date / Time clindamycin [CLINDAMYCIN] Allergy Severe RASH Verified 06/05/22 14:31 <NITZA Aden - Last Filed: 06/05/22 14:35> Review of Systems Review of Systems: Yes all other systems are reviewed and are negative <NITZA Davis - Last Filed: 06/05/22 17:54> [facility] Past Medical History Medical History: Medical History Essential hypertension Lower extremity edema Stroke <NITZA Aden - Last Filed: 06/05/22 14:35> Surgical History: Surgical History No pertinent past surgical history <NITZA Aden - Last Filed: 06/05/22 14:35> Family History Family History: Family History Mother No problems noted. Father No problems noted. <NITZA Aden - Last Filed: 06/05/22 14:35> Social History Social History: Social History Household Members: Children Housing: House Alcohol intake: current Alcohol intake frequency: does not drink Patient Tobacco Use Status: Never used Tobacco e-Cigarette/Vaping Use: Never Used Second Hand Smoke Exposure: No Advance Directives: No Advance Directives Information Provided: No service: No Current occupational status: unemployed Current occupational exposures/hazards: No Cognitive needs: No Hearing needs: No Vision needs: No <NITZA Aden - Last Filed: 06/05/22 14:35> Physical Exam ED Vital Signs: Vital Signs - 24 hr 06/05/22 14:31 06/05/22 14:45 06/05/22 15:43 Temperature 98.2 F 98.5 F Pulse Rate 95 94 84 Respiratory Rate 16 20 16 Blood Pressure 200/81 H 175/76 H Pulse Oximetry 95 93 Oxygen Delivery Method Room Air Room Air BMI result Body Mass Index 46.3 <NITZA Aden Last Filed: 06/05/22 14:35> Vital Signs - 24 hr 06/05/22 14:31 06/05/22 14:45 06/05/22 15:43 Temperature 98.2 F 98.5 F Pulse Rate 95 94 84 Respiratory Rate 16 20 16 Blood Pressure 200/81 H 175/76 H Pulse Oximetry 95 93 Oxygen Delivery Method Room Air Room Air BMI result Body Mass Index 46.3 <NITZA Davis Last Filed: 06/05/22 17:54> Appearance: Alert. Oriented X3. No acute distress. Eyes: Pupils equal, round and reactive to light. ENT: Pharynx normal. Neck: Normal inspection. Neck supple. CVS: Normal heart rate and rhythm. Pulses normal. Respiratory: Mild respiratory distress. Audible wheezing with breath sounds with inspiratory wheezes bilaterally, worse at the bases than the apices. Abdomen: Morbidly obese, Soft and nontender. +BS x4 Skin: Skin warm and dry. Normal skin color. Normal skin turgor. No rashes. Extremities: Mild nonpitting bilateral lower extremity edema. Neuro: Oriented X 3. No motor deficit. No sensory deficit. Normal speech and cognition. Nonfocal. <NITZA Davis Last Filed: 06/05/22 17:54> Course Course Course Narrative: RME performed by Kaci Burt PA-C. Patient is a 51 year old female presenting to the emergency department with shortness of breath. Patient has a history of HTN and has not been taking her medications due to an insurance change. Patient states that she does not have a diagnosed history of asthma but used to be prescribed an inhaler. Labs, CXR, albuterol, and solu-medrol ordered for the patient. Patient to be taken back to a room directly. <NITZA Aden Last Filed: 06/05/22 14:35> Reevaluation(s) Reevaluation #1: Patient improved after albuterol treatment and nebulizers. Chest x-ray reviewed, question of heart failure however she has no history of this. Her BNP is normal. She did respond to treatments for asthma making heart failure less likely. Chest x-ray is read as pneumonia. Will treat as such. She is breathing better. Lung sounds improved. Saturations 96%. Blood pressure 200 systolic initially. She has not taken her antihypertensives. She has no PCP and only has a few tablets left of her amlodipine, Toprol, HCTZ. Will give her prescribed medications and reassess. She denies any current chest pain, headache, vision changes. <NITZA Davis - Last Filed: 06/05/22 17:54> Reevaluation #2: BP improved. Respiratory status remained stable. Comfortable discharge home with treatment for acute community acquired pneumonia, will refilll home BP meds. <NITAZ Davis - Last Filed: 06/05/22 17:54> Medications Administered Discontinued Medications Generic Name Dose Route Start Last Admin Trade Name Freq PRN Reason Stop Dose Admin Albuterol Sulfate 10 mg 06/05/22 14:33 06/05/22 15:43 Albuterol Sulfate (0.083%) 2.5 Mg/3 Ml Vial.Neb INHALE 06/05/22 14:34 10 mg ONCE ONE Administration Amlodipine Besylate 10 mg 06/05/22 17:08 06/05/22 17:16 Amlodipine Besylate 10 Mg Tablet PO 06/05/22 17:09 10 mg ONCE ONE Administration Protocol Methylprednisolone Sodium Succinate 60 mg 06/05/22 14:33 06/05/22 14:53 Methylprednisolone Sod Succ 125 Mg/2 Ml Vial IM 06/05/22 14:34 60 mg ONCE ONE Administration Metoprolol Succinate 100 mg 06/05/22 17:08 06/05/22 17:16 Metoprolol Succinate Er 100 Mg Tab.Er.24h PO 06/05/22 17:09 100 mg ONCE ONE Administration Protocol <NITZA Aden - Last Filed: 06/05/22 14:35> Medications Administered Discontinued Medications Generic Name Dose Route Start Last Admin Trade Name Freq PRN Reason Stop Dose Admin Albuterol Sulfate 10 mg 06/05/22 14:33 06/05/22 15:43 Albuterol Sulfate (0.083%) 2.5 Mg/3 Ml Vial.Neb INHALE 06/05/22 14:34 10 mg ONCE ONE Administration Amlodipine Besylate 10 mg 06/05/22 17:08 06/05/22 17:16 Amlodipine Besylate 10 Mg Tablet PO 06/05/22 17:09 10 mg ONCE ONE Administration Protocol Methylprednisolone Sodium Succinate 60 mg 06/05/22 14:33 06/05/22 14:53 Methylprednisolone Sod Succ 125 Mg/2 Ml Vial IM 06/05/22 14:34 60 mg ONCE ONE Administration Metoprolol Succinate 100 mg 06/05/22 17:08 06/05/22 17:16 Metoprolol Succinate Er 100 Mg Tab.Er.24h PO 06/05/22 17:09 100 mg ONCE ONE Administration Protocol <NITZA Davis - Last Filed: 06/05/22 17:54> Medical Decision Making Medical Decision Making MDM Narrative: 51-year-old female presenting with shortness of breath and wheezing. Differential is broad but is most likely acute asthma exacerbation, acute pneumonia. Less likely CHF given normal BNP. She responded well to albuterol and steroids. She is nontoxic and breathing comfortably. Will plan to discharge with oral antibiotics, steroids, albuterol. Her blood pressure is elevated to 100 systolic initially, no signs or symptoms of this. Likely chronically high at home with medication noncompliance due to no outpatient PCP. Her home BP meds have been given with good improvement in her BP. <NITZA Davis Last Filed: 06/05/22 17:54> Differential Diagnosis Differential Diagnoses: The differential diagnosis associated with the presentation includes <NITZA Davis Last Filed: 06/05/22 17:54> Community-acquired pneumonia, aspiration pneumonia, asthma exacerbation, COPD exacerbation, CHF exacerbation, pneumonitis, pleural effusion, less likely anemia, ACS, PE <NITZA Davis Last Filed: 06/05/22 17:54> Admission/Observation Consideration of admission/observation: Escalation of care including admission/observation considered <NITZA Davis Last Filed: 06/05/22 17:54> Improved after treatments, comfortable discharge home <NITZA Davis Last Filed: 06/05/22 17:54> Lab Data [facility] Lab Attestation statement: I reviewed the patient's lab results. <NITZA Davis - Last Filed: 06/05/22 17:54> Result Diagrams: 06/05/22 14:51 06/05/22 14:51 <NITZA Aden - Last Filed: 06/05/22 14:35> Labs: Lab Results 06/05/22 06/05/22 06/05/22 Range/Units 14:49 14:51 14:51 WBC 10.7 (4.8-10.8) X10*3/uL RBC 4.44 (4.20-5.50) X10*6/uL Hgb 12.1 (12.0-16.0) g/dl Hct 36.9 L (37.0-47.0) % MCV 83.1 (80.0-98.0) fL MCH 27.3 (27.0-33.0) pg MCHC 32.8 (31.0-35.0) g/dl RDW 14.4 (11.0-16.0) % Plt Count 330 (160-400) X10*3/uL MPV 9.9 (9.4-12.3) fL Immature Gran % (Auto) 1.9 H (0.0-0.4) % Neut % (Auto) 69.5 (45-73) % Lymph % (Auto) 21.6 (20-40) % Concho % (Auto) 4.6 (2-11) % Eos % (Auto) 2.1 (0-4) % Baso % (Auto) 0.3 (0-2) % Lymph # (Auto) 2.3 (1.2-4.9) X10*3/uL [place] # (Auto) 0.5 (0.1-1.2) X10*3/uL Eos # (Auto) 0.2 (0.0-0.4) X10*3/uL Baso # (Auto) 0.0 (0.0-0.2) X10*3/uL Abs Immat Gran (auto) 0.20 H (0.00-0.03) X10*3/uL Absolute Neuts (auto) 7.5 (2.0-8.3) x10*3/uL Absolute Nucleated RBC 0.000 (0.0-0.012) X10*3/uL Nucleated RBC % (auto) 0.0 (0.0-0.2) /100WBC Sodium 141 (135-145) mmol/L Potassium 3.6 (3.3-5.1) mmol/L Chloride 103 (96-108) mmol/L Carbon Dioxide 33 H (22-29) mmol/L Anion Gap 9 L (12-20) BUN 6 L (9-16) mg/dL Creatinine 0.67 (0.5-1.4) mg/dL Estim Creat Clear Calc 128.3 Estimated GFR > 60 Random Glucose 153 H (60-115) mg/dL Calcium 8.9 (8.4-10.2) mg/dL Magnesium 1.9 (1.6-2.6) mg/dL Total Bilirubin 0.5 (0.0-1.0) mg/dL AST 13 (5-31) U/L ALT 15 (0-31) U/L Alkaline Phosphatase 112 (39-117) U/L B-Natriuretic Peptide (<100) pg/mL Total Protein 6.6 (6.5-8.0) g/dL Albumin 3.6 (3.5-5.0) g/dL Influenza Type A (PCR) NEGATIVE (Negative) Influenza Type B (PCR) NEGATIVE (Negative) RSV RNA Qual (PCR) NEGATIVE (Negative) SARS-CoV-2 RNA (RT-PCR) NEGATIVE (Negative) 06/05/22 Range/Units 14:51 WBC (4.8-10.8) X10*3/uL RBC (4.20-5.50) X10*6/uL Hgb (12.0-16.0) g/dl Hct (37.0-47.0) % MCV (80.0-98.0) fL MCH (27.0-33.0) pg MCHC (31.0-35.0) g/dl RDW (11.0-16.0) % Plt Count (160-400) X10*3/uL MPV (9.4-12.3) fL Immature Gran % (Auto) (0.0-0.4) % Neut % (Auto) (45-73) % Lymph % (Auto) (20-40) % Concho % (Auto) (2-11) % Eos % (Auto) (0-4) % Baso % (Auto) (0-2) % Lymph # (Auto) (1.2-4.9) X10*3/uL Concho # (Auto) (0.1-1.2) X10*3/uL Eos # (Auto) (0.0-0.4) X10*3/uL Baso # (Auto) (0.0-0.2) X10*3/uL Abs Immat Gran (auto) (0.00-0.03) X10*3/uL Absolute Neuts (auto) (2.0-8.3) x10*3/uL Absolute Nucleated RBC (0.0-0.012) X10*3/uL Nucleated RBC % (auto) (0.0-0.2) /100WBC Sodium (135-145) mmol/L Potassium (3.3-5.1) mmol/L Chloride (96-108) mmol/L Carbon Dioxide (22-29) mmol/L Anion Gap (12-20) BUN (9-16) mg/dL Creatinine (0.5-1.4) mg/dL Estim Creat Clear Calc Estimated GFR Random Glucose (60-115) mg/dL Calcium (8.4-10.2) mg/dL Magnesium (1.6-2.6) mg/dL Total Bilirubin (0.0-1.0) mg/dL AST (5-31) U/L ALT (0-31) U/L Alkaline Phosphatase (39-117) U/L B-Natriuretic Peptide 47 (<100) pg/mL Total Protein (6.5-8.0) g/dL Albumin (3.5-5.0) g/dL Influenza Type A (PCR) (Negative) Influenza Type B (PCR) (Negative) RSV RNA Qual (PCR) (Negative) SARS-CoV-2 RNA (RT-PCR) (Negative) <NITZA Aden - Last Filed: 06/05/22 14:35> Lab Results 06/05/22 06/05/22 06/05/22 Range/Units 14:49 14:51 14:51 WBC 10.7 (4.8-10.8) X10*3/uL RBC 4.44 (4.20-5.50) X10*6/uL Hgb 12.1 (12.0-16.0) g/dl Hct 36.9 L (37.0-47.0) % MCV 83.1 (80.0-98.0) fL MCH 27.3 (27.0-33.0) pg MCHC 32.8 (31.0-35.0) g/dl RDW 14.4 (11.0-16.0) % Plt Count 330 (160-400) X10*3/uL MPV 9.9 (9.4-12.3) fL Immature Gran % (Auto) 1.9 H (0.0-0.4) % Neut % (Auto) 69.5 (45-73) % Lymph % (Auto) 21.6 (20-40) % Concho % (Auto) 4.6 (2-11) % Eos % (Auto) 2.1 (0-4) % Baso % (Auto) 0.3 (0-2) % Lymph # (Auto) 2.3 (1.2-4.9) X10*3/uL Concho # (Auto) 0.5 (0.1-1.2) X10*3/uL Eos # (Auto) 0.2 (0.0-0.4) X10*3/uL Baso # (Auto) 0.0 (0.0-0.2) X10*3/uL Abs Immat Gran (auto) 0.20 H (0.00-0.03) X10*3/uL Absolute Neuts (auto) 7.5 (2.0-8.3) x10*3/uL Absolute Nucleated RBC 0.000 (0.0-0.012) X10*3/uL Nucleated RBC % (auto) 0.0 (0.0-0.2) /100WBC Sodium 141 (135-145) mmol/L Potassium 3.6 (3.3-5.1) mmol/L Chloride 103 (96-108) mmol/L Carbon Dioxide 33 H (22-29) mmol/L Anion Gap 9 L (12-20) BUN 6 L (9-16) mg/dL Creatinine 0.67 (0.5-1.4) mg/dL Estim Creat Clear Calc 128.3 Estimated GFR > 60 Random Glucose 153 H (60-115) mg/dL Calcium 8.9 (8.4-10.2) mg/dL Magnesium 1.9 (1.6-2.6) mg/dL Total Bilirubin 0.5 (0.0-1.0) mg/dL AST 13 (5-31) U/L ALT 15 (0-31) U/L Alkaline Phosphatase 112 (39-117) U/L B-Natriuretic Peptide (<100) pg/mL Total Protein 6.6 (6.5-8.0) g/dL Albumin 3.6 (3.5-5.0) g/dL Influenza Type A (PCR) NEGATIVE (Negative) Influenza Type B (PCR) NEGATIVE (Negative) RSV RNA Qual (PCR) NEGATIVE (Negative) SARS-CoV-2 RNA (RT-PCR) NEGATIVE (Negative) 06/05/22 Range/Units 14:51 WBC (4.8-10.8) X10*3/uL RBC (4.20-5.50) X10*6/uL Hgb (12.0-16.0) g/dl Hct (37.0-47.0) % MCV (80.0-98.0) fL MCH (27.0-33.0) pg MCHC (31.0-35.0) g/dl RDW (11.0-16.0) % Plt Count (160-400) X10*3/uL MPV (9.4-12.3) fL Immature Gran % (Auto) (0.0-0.4) % Neut % (Auto) (45-73) % Lymph % (Auto) (20-40) % Concho % (Auto) (2-11) % Eos % (Auto) (0-4) % Baso % (Auto) (0-2) % Lymph # (Auto) (1.2-4.9) X10*3/uL Concho # (Auto) (0.1-1.2) X10*3/uL Eos # (Auto) (0.0-0.4) X10*3/uL Baso # (Auto) (0.0-0.2) X10*3/uL Abs Immat Gran (auto) (0.00-0.03) X10*3/uL Absolute Neuts (auto) (2.0-8.3) x10*3/uL Absolute Nucleated RBC (0.0-0.012) X10*3/uL Nucleated RBC % (auto) (0.0-0.2) /100WBC Sodium (135-145) mmol/L Potassium (3.3-5.1) mmol/L Chloride (96-108) mmol/L Carbon Dioxide (22-29) mmol/L Anion Gap (12-20) BUN (9-16) mg/dL Creatinine (0.5-1.4) mg/dL Estim Creat Clear Calc Estimated GFR Random Glucose (60-115) mg/dL Calcium (8.4-10.2) mg/dL Magnesium (1.6-2.6) mg/dL Total Bilirubin (0.0-1.0) mg/dL AST (5-31) U/L ALT (0-31) U/L Alkaline Phosphatase (39-117) U/L B-Natriuretic Peptide 47 (<100) pg/mL Total Protein (6.5-8.0) g/dL Albumin (3.5-5.0) g/dL Influenza Type A (PCR) (Negative) Influenza Type B (PCR) (Negative) RSV RNA Qual (PCR) (Negative) SARS-CoV-2 RNA (RT-PCR) (Negative) <NITZA Davis - Last Filed: 06/05/22 17:54> Independent Interpretation I performed an independent interpretation of an: Plain X-Ray <NITZA Davis - Last Filed: 06/05/22 17:54> Interpretation: Bilateral patchy opacities left worse than right. <NITZA Davis - Last Filed: 06/05/22 17:54> Radiology Impression Discussion of test interpretation with radiology: I have reviewed the radiologist's reading. <NITZA Davis - Last Filed: 06/05/22 17:54> Radiologist Impression: XR/XR chest 2V IMPRESSION: Left-sided infiltrate. Question more mild area of infiltrate in the right mid to lower lung <NITZA Davis Last Filed: 06/05/22 17:54> External Record Review External record reviewed: Outpatient record, Prior outpatient labs and Prior outpatient radiology <NITZA Davis - Last Filed: 06/05/22 17:54> Prescription Management I considered prescription management with: Antibiotic and Other (antihypertensives) <NITZA Davis - Last Filed: 06/05/22 17:54> Chronic Conditions Patient?s care impacted by: Hypertension and Other (obesity) <NITZA Davis - Last Filed: 06/05/22 17:54> Social Determinants Patient?s care significantly limited by Social Determinants of Health including: Problems related to employment and Other Social Determinant of Health <NITZA Davis - Last Filed: 06/05/22 17:54> Critical Care Time Critical Care Time Critical Care Time: Yes <NITZA Davis - Last Filed: 06/05/22 17:54> Total Critical Care Time: 35 <NITZA Davis - Last Filed: 06/05/22 17:54> Attestation: I have personally provided critical care time exclusive of time spent on separately billable procedures. Time includes review of lab data, radiology results, frequent bedside reassessments of cardiopulmonary status and monitoring for potential decompensation. Intervention performed as documented. <NITZA Davis - Last Filed: 06/05/22 17:54> Discharge Plan Discharge Clinical Impression: Pneumonia, Essential hypertension <NITZA Aden - Last Filed: 06/05/22 14:35> Patient Disposition: Home, Self-Care <NITZA Aden - Last Filed: 06/05/22 14:35> Instructions: Hypertension (ED), Pneumonia (ED) <NITZA Aden - Last Filed: 06/05/22 14:35> Additional Instructions: Your x-ray today showed pneumonia. Take the prescribed antibiotics for this. Complete the entire course and not miss any doses. Take the prescribed prednisone, start taking this tomorrow. Your given steroids in the emergency room today. Take your prescribed blood pressure medications as directed. Your blood pressure was very elevated today. Use albuterol inhaler as needed for wheezing and shortness of breath. Recommend following up with a lung doctor, name and number below. Call for an appointment. Recommend following up with primary care doctor. If you develop new or worsening symptoms call 911 or come back to the ER for further evaluation. <NITZA Aden - Last Filed: 06/05/22 14:35> Prescriptions: New azithromycin [Zithromax Z-Sathya] 250 mg tablet See Rx Instructions .ROUTE .COMPLEX Qty: 6 0RF Rx Instructions: take 500 mg today (day 1), then 250 mg for 4 days (days 2-5) prednisone 50 mg tablet 50 mg PO DAILY Qty: 5 0RF albuterol sulfate 90 mcg/actuation HFA aerosol inhaler 2 puff inhalation Q4-6H PRN (Reason: shortness of breath or wheezing) Qty: 8.5 0RF cefpodoxime 200 mg tablet 200 mg PO BID Qty: 14 0RF Rx Instructions: must administer with a meal/food amlodipine 10 mg tablet 10 mg PO DAILY Qty: 30 0RF metoprolol succinate [Toprol XL] 100 mg tablet extended release 24 hr 100 mg PO DAILY Qty: 30 0RF hydrochlorothiazide 12.5 mg tablet 12.5 mg PO QAM Qty: 30 0RF No Action furosemide 20 mg tablet 10 mg PO DAILY 30 Days Qty: 15 1RF Rx Instructions: 1/2 tab daily amoxicillin-pot clavulanate 875-125 mg tablet 1 tab PO BID 7 Days Qty: 14 0RF cetirizine 10 mg tablet 10 mg PO DAILY albuterol sulfate [ProAir HFA] 90 mcg/actuation HFA aerosol inhaler 2 puff inhalation Q4-6H PRN (Reason: shortness of breath or wheezing) 30 Days Qty: 8.5 1RF omeprazole 40 mg capsule,delayed release(DR/EC) 40 mg PO DAILY 30 Days Qty: 30 0RF meloxicam 15 mg tablet 15 mg PO DAILY 30 Days Qty: 30 0RF Rx Instructions: Take with food prednisone 20 mg tablet 40 mg PO DAILY 4 Days Qty: 8 0RF hydrochlorothiazide 25 mg tablet 25 mg PO DAILY 90 Days Qty: 90 2RF amlodipine 10 mg tablet 10 mg PO DAILY 90 Days Qty: 90 2RF metoprolol succinate 100 mg tablet extended release 24 hr 100 mg PO DAILY 90 Days Qty: 90 2RF <NITZA Aden - Last Filed: 06/05/22 14:35> Referrals: [facility] [place] [facility] [Provider Group] [facility] [place] [facility] [Provider Group] <NITZA Aden - Last Filed: 06/05/22 14:35>
[2022-06-05 14:45] VITALS: BP 175/76; PULSE 94; RESP 20; TEMP 36.9; O2SAT 93
[2022-06-05] MEDS: methylPREDNISolone Sod Succ 125 MG/2 ML VIAL 60 MG IM (14:53)
[2022-06-05 14:55] LABS: MANUAL DIFF FLAG NO
[2022-06-05 15:04] LABS: Basophils Percent Auto 0.3 % (0-2); Eosinophils Absolute Auto 0.2 X10*3/uL (0.0-0.4); Eosinophils Percent Auto 2.1 % (0-4); Hematocrit 36.9 % (37.0-47.0); Hemoglobin 12.1 g/dl (12.0-16.0); Imm Gran Pct Auto 1.9 % (0.0-0.4); Lymphocytes Absolute Auto 2.3 X10*3/uL (1.2-4.9); Lymphocytes Percent Auto 21.6 % (20-40); Mean Corpuscular HGB Conc 32.8 g/dl (31.0-35.0); Mean Corpuscular Hemoglobin 27.3 pg (27.0-33.0); Mean Corpuscular Volume 83.1 fL (80.0-98.0); Mean Platelet Volume 9.9 fL (9.4-12.3); Monocytes Absolute Auto 0.5 X10*3/uL (0.1-1.2); Monocytes Percent Auto 4.6 % (2-11); Neutrophils Absolute Auto 7.5 x10*3/uL (2.0-8.3); Neutrophils Percent Auto 69.5 % (45-73); Platelet Count 330 X10*3/uL (160-400); Red Blood Count 4.44 X10*6/uL (4.20-5.50); Red Cell Distribution Width 14.4 % (11.0-16.0); White Blood Count 10.7 X10*3/uL (4.8-10.8)
[2022-06-05 15:34] LABS: Influenza A PCR NEGATIVE (Negative); Influenza B PCR NEGATIVE (Negative); Resp Syncy Virus RNA Qual PCR NEGATIVE (Negative); SARS COV2 PCR INHOUSE NEGATIVE (Negative)
[2022-06-05 15:37] LABS: Alanine Aminotransferase 15 U/L (0-31); Albumin Level 3.6 g/dL (3.5-5.0); Alkaline Phosphatase 112 U/L (39-117); Anion Gap 9 (12-20); Aspartate Amino Transferase 13 U/L (5-31); Bilirubin Total 0.5 mg/dL (0.0-1.0); Blood Urea Nitrogen 6 mg/dL (9-16); Calcium 8.9 mg/dL (8.4-10.2); Carbon Dioxide 33 mmol/L (22-29); Chloride 103 mmol/L (96-108); Creatinine Clr Calc Pharmacy 128.3; Estimated Glomerular Filt Rate > 60; Glucose Random 153 mg/dL (60-115); Magnesium 1.9 mg/dL (1.6-2.6); Potassium 3.6 mmol/L (3.3-5.1); Sodium 141 mmol/L (135-145); Total Protein 6.6 g/dL (6.5-8.0)
[2022-06-05 15:43] VITALS: PULSE 84; RESP 16; O2SAT 94
[2022-06-05] MEDS: Albuterol Sulfate (0.083%) 2.5 MG/3 ML VIAL.NEB 10 MG INHALE (15:43)
[2022-06-05 16:48] LABS: B Type Natriuretic Peptide 47 pg/mL (<100)
[2022-06-05] MEDS: Metoprolol Succinate ER 100 MG TAB.ER.24H PO (17:16)
[2022-06-05] MEDS: amLODIPine Besylate 10 MG TABLET PO (17:16)
[2022-06-05 17:56] VITALS: BP 178/85; PULSE 94; RESP 17; TEMP 36.8; O2SAT 93
== END 2022-06-05 18:43 | disposition home or self-care (01) ==
PROVIDERS: Physician Assistant; Physician Assistant Medical; Emergency Provider Student in an Organized Health Care Education/Training Program
DX: J18.9 Pneumonia, unspecified organism (principal); I10 Essential (primary) hypertension; R06.02 Shortness of breath; Z20.822 Contact with and (suspected) exposure to COVID-19; Z20.828 Contact with and (suspected) exposure to other viral communicable diseases; Z79.899 Other long term (current) drug therapy
CPT/HCPCS: 0241U; 71046; 80053; 83735; 83880; 85025; 94640; 96372; 99284; J2930

== ENCOUNTER 2022-10-27 15:43 | Outpatient (AMB) | payer OTHER, SELFPAY ==
[2022-10-27 15:48] VITALS: BP 144/60; PULSE 78; RESP 12; TEMP 36.6; O2SAT 96; BMI 52.8
--- NOTE | 2022-10-27 15:48 | MHC.PC.OV ---
Vital Signs 10/27/22 15:48 Height 5 ft 4 in Weight 307 lb 8 oz BMI 52.8 BP 144/60 H Blood Pressure Location Lt brachial Position Sitting Respiration 12 Pulse 78 Pulse Source Pulse Oximeter Temp 97.9 F Temp Source Temporal Artery Scan Pulse Oximetry (%) 96 Oxygen Delivery Method Room Air Intake Visit Reasons: hand tingling Sensation Intake Note: Hand tingling has been going on for about 3-4 weeks. Patient states that she went to [facility] in [place] and was told that there was something going on with the her nerves. Patient states that she received 2 wrist braces and prednisone. Patient states that her back also hurts really bad and prevents her from doing normal daily tasks, Orthopedics Pediatric Physician Required: No Accompanied by: Self / Same As Patient Allergies clindamycin [CLINDAMYCIN] Allergy (Severe, Verified 10/27/22 16:15) RASH Medication List - Last Reconciled 10/27/22 by Charu Allison, RADHA albuterol sulfate 90 mcg/actuation 2 puffs inhalation Q4-6H PRN albuterol sulfate 90 mcg/actuation (ProAir HFA) 2 puffs inhalation Q4-6H PRN 30 days amlodipine 10 mg PO DAILY cetirizine 10 mg PO DAILY hydrochlorothiazide 12.5 mg PO QAM metoprolol succinate ER (Toprol XL) 100 mg PO DAILY omeprazole 40 mg PO DAILY 30 days Tobacco use date assessed: 10/27/22 Dental Screening Dental Screen Date: 10/27/22 Did you have a dental visit in the last 12 months?: No Did you have a dental problem in the last 6 months where you did not have access to dental care?: No Was dental information given to patient?: Patient has dentist HPI HPI Comments History of Present Illness Details 52-year-old female presents with complaints of tingling and numbness of the first to third digits of both hands, third digits are worst. She notes that her symptoms have been ongoing for the past 2-4 weeks. She states she was evaluated in the ED and was prescribed prednisone and given to wrist braces. She denies improvement with current treatment regimen. She also reports chronic low back pain which limits her activities. She takes Tylenol with some improvement. She reports h/o PT and xray of her lower back. She requests a refill for amlodipine, hydrochlorothiazide, and metoprolol. She states she has been taking the medications as prescribed. [facility] Medical History Back pain Essential hypertension Lower extremity edema Stroke Tingling sensation Walking pneumonia Surgical History No pertinent past surgical history Family History Mother No problems noted. Father No problems noted. Social History Household Members: Children Housing: House Alcohol intake: current Alcohol intake frequency: does not drink Patient Tobacco Use Status: Never used Tobacco e-Cigarette/Vaping Use: Never Used Second Hand Smoke Exposure: No service: No Current occupational status: unemployed Current occupational exposures/hazards: No Cognitive needs: No Hearing needs: No Vision needs: No Questionnaire Thrive Questionnaire Date Thrive assessed: 10/27/22 I am a: Patient What is your living situation today?: I have a steady place to live Within the past 12 months, did the food you bought not last and you didn't have the money to get more?: Never true Within the past 12 months, did you worry whether your food would run out before you got money to buy more?: Never true Do you have trouble paying for medicines?: No Do you have trouble getting transportation to medical appointments?: No Do you have trouble paying your heating and electricity bill?: No Do you have trouble taking care of your child, family member or friend?: No Do you have trouble with day-to-day activities such as bathing, preparing meals, shopping, managing finances, etc.?: Yes Are you currently unemployed and looking for a job?: No Are you interested in more education?: No Please select the resources that you would like help with: Daily support Currently or been in a relationship where the following occur: no concerns reported AUDIT C Alcohol Use Questionnaire (AUDIT-C) 1. How often do you have a drink containing alcohol?: 2-4 times a month 2. How many drinks containing alcohol do you have on a typical day when you are drinking?: 1 or 2 3. How often do you have six or more drinks on one occasion?: Never Total Score: 2 PAUL-7 AMB Questionnaire PAUL-7 Date PAUL - 7 assessed: 10/27/22 Source: Developed by Drs. Markell Zhao, Torrie Georges, Ephraim Fernandes and colleagues, with an educational curry from [employer]. Review of Systems Const Details: Const Denies chills, Denies fatigue, Denies fever(s), Denies headache(s) and Denies weakness ENT Denies dizziness and Denies headache(s) Card Denies chest pain, Denies lightheadedness, Denies dyspnea and Denies other (Palpitations) Resp Denies cough, Denies dyspnea, Denies wheezing and Denies other ( shortness of breath) GI Denies abdominal pain, Denies melena, Denies hematochezia, Denies change in bowel habits, Denies dyspepsia and Denies nausea Denies hematuria and Denies dysuria Musc Reports back pain, Denies abnormal gait, Reports numbness and tingling Skin/Breast Denies rash, Denies unusual bruising and Denies wounds Neuro Denies abnormal gait, Denies dizziness, Denies headache(s), Denies memory loss, Reports numbness, Denies Sensory deficit (Neuro), Denies tingling and Denies weakness Psych Denies anxiety and Denies depression Endo Denies fatigue Aller/Immun Denies wheezing Physical exam (Primary Care) Vital Signs: Last Vital Signs Temp 97.9 F 10/27/22 15:48 Pulse 78 10/27/22 15:48 Resp 12 10/27/22 15:48 Pulse Ox 96 10/27/22 15:48 Oxygen Delivery Method Room Air 10/27/22 15:48 BMI result Body Mass Index 52.8 Tobacco/Smoking Status: Tobacco use Status Tobacco use date assessed 10/27/22 10/27/22 16:06 Patient Tobacco Use Status Never used Tobacco 10/27/22 16:06 e-Cigarette/Vaping Use Never Used 10/27/22 16:06 PHQ-9: PHQ-9 Score PHQ-9: Total score 9 10/27/22 16:06 Thrive Assessment: Date of Thrive Assessment Date Thrive assessed 10/27/22 10/27/22 16:06 Currently or been in a relationship where the following occur: no concerns reported Const Other: General: no acute distress and well developed Nutritional Appearance: well nourished Orientation/consciousness: patient oriented x3 [facility] Head: Yes normocephalic and Yes atraumatic Eyes General: appearance normal, both eyes and all related structures Pupils: Equal, round and reactive pupils present EOM: EOMs intact bilaterally Resp Effort & Inspection: normal respiratory effort Auscultation: clear to auscultation bilaterally Cardio Rate: regular rate Rhythm: regular rhythm Heart sounds: S1 normal heart sound present, S2 normal heart sound present, no gallops, no murmurs and no rubs GI Palpation (GI): No Abdominal aortic bruit present, Soft to palpation, nontender, No hepatosplenomegaly present and No Rebound tenderness present Auscultation: normal bowel sounds General: Yes no CVA tenderness Back/Spine/Pelvis Back: no CVA tenderness Cervical Spine: cervical ROM normal and No Cervical spine tenderness Thoracic/Lumbar Spine: thoraco-lumbar ROM normal, No pain with thoraco-lumbar ROM, No thoracic spinal tenderness and positive lumbar spinal tenderness Extrem General: Yes normal to inspection, No edema and No calf tenderness Skin General: warm and dry. Normal skin color. Normal skin turgor Lesions: no lesions Rashes: no rashes Trauma: no lacerations or abrasions Wounds: no wounds Nails: normal Neuro General: patient oriented x3, gait normal and no focal neuro deficit Cranial nerves: Yes Equal, round and reactive pupils present Cognition (Neuro): normal cognition Gait exam (Neuro): Normal gait present Motor exam (neuro): 5/5 motor strength present throughout Sensory Exam: No Sensory deficit (Neuro) Psych Affect: normal affect Assessment and Plan Assessment & Plan (1) Paresthesia of both hands: Code(s): R20.2 - Paresthesia of skin Plan: May be related to nerve pain X-ray and Labs ordered Continue to take Tylenol for pain or discomfort Use wrist braces as instructed Follow-up in 1 month return sooner with worsening or new symptoms Verbalized understanding and agreed with treatment plan. (2) Chronic low back pain: Code(s): M54.50 - Low back pain, unspecified; G89.29 - Other chronic pain Plan: Lumbar spine tenderness with palpation Continue to take Tylenol for pain or discomfort Follow-up in 1 month May referred to PT Return sooner with new or worsening symptoms Verbalized understanding and agreed with treatment plan. (3) Essential hypertension: Code(s): I10 - Essential (primary) hypertension Plan: She requests a refill for amlodipine, hydrochlorothiazide, and metoprolol. She states she has been taking the medications as prescribed. Blood pressure today is 144/60, above goal of less than 140/90 Medication refilled. Take as prescribed Low-sodium diet and routine exercise encouraged Follow-up in 1 month or return sooner with symptoms or concerns Verbalized understanding and agreed with treatment plan. Orders: Orders Comprehensive [place]. Panel Fast Today G89.29 - Other chronic pain, M54.50 - Low back pain, unspecified Complete Blood Count Auto Diff Today R20.2 - Paresthesia of skin Vitamin B12 and Folate Today R20.2 - Paresthesia of skin CRP High Sensitivity Today R20.2 - Paresthesia of skin Rheumatoid Factor Today R20.2 - Paresthesia of skin Erythrocyte Sedimentation Rate Today R20.2 - Paresthesia of skin XR hand LT 2V Today R20.2 - Paresthesia of skin XR hand RT 2V Today R20.2 - Paresthesia of skin Medications: Refilled amlodipine 10 mg PO DAILY 30 tabs 0RF hydrochlorothiazide 12.5 mg PO QAM 30 tabs 0RF metoprolol succinate ER (Toprol XL) 100 mg PO DAILY 30 tabs 0RF Coding Level of Care Code Est Pt Level 4 (22853) Diagnoses Paresthesia of both hands R20.2 Chronic low back pain M54.50; G89.29 Essential hypertension I10 Time Spent (min) 35
== END 2022-10-27 16:54 | disposition home or self-care (01) ==
PROVIDERS: PCP Family Medicine; Visit Provider Nurse Practitioner Family
DX: R20.2 Paresthesia of skin (principal); M54.50 Low back pain, unspecified; G89.29 Other chronic pain; I10 Essential (primary) hypertension
CPT/HCPCS: 99214

== ENCOUNTER 2022-11-25 20:42 | Emergency (ER) | payer OTHER, SELFPAY ==
[2022-11-25 21:19] VITALS: BP 158/70; PULSE 77; RESP 16; TEMP 36.4; O2SAT 97; BMI 61.7
--- NOTE | 2022-11-25 21:34 | MHC.EDTECH ---
Patient brought back from waiting room and labs were drawn and sent to lab,pt was brought back to waiting area.
[2022-11-25 21:43] LABS: MANUAL DIFF FLAG NO
--- NOTE | 2022-11-25 21:45 | MHC.EDTECH ---
Patient brought back from waiting area,labs were obtained and sent to lab. Patient was brought back to waiting area.
[2022-11-25 21:49] LABS: Basophils Percent Auto 0.3 % (0-2); Eosinophils Absolute Auto 0.4 X10*3/uL (0.0-0.4); Eosinophils Percent Auto 4.6 % (0-4); Hematocrit 39.2 % (37.0-47.0); Hemoglobin 12.9 g/dl (12.0-16.0); Imm Gran Abs Auto 0.06 X10*3/uL (0.00-0.03); Imm Gran Pct Auto 0.6 % (0.0-0.4); Lymphocytes Absolute Auto 3.2 X10*3/uL (1.2-4.9); Lymphocytes Percent Auto 32.9 % (20-40); Mean Corpuscular HGB Conc 32.9 g/dl (31.0-35.0); Mean Corpuscular Hemoglobin 27.6 pg (27.0-33.0); Mean Corpuscular Volume 83.9 fL (80.0-98.0); Monocytes Absolute Auto 0.8 X10*3/uL (0.1-1.2); Monocytes Percent Auto 8.5 % (2-11); Neutrophils Absolute Auto 5.1 x10*3/uL (2.0-8.3); Neutrophils Percent Auto 53.1 % (45-73); Platelet Count 324 X10*3/uL (160-400); Red Blood Count 4.67 X10*6/uL (4.20-5.50); Red Cell Distribution Width 14.8 % (11.0-16.0); White Blood Count 9.6 X10*3/uL (4.8-10.8)
[2022-11-25 22:00] LABS: Alanine Aminotransferase 20 U/L (0-31); Albumin Level 3.8 g/dL (3.5-5.0); Alkaline Phosphatase 107 U/L (39-117); Anion Gap 12 (12-20); Aspartate Amino Transferase 19 U/L (5-31); Bilirubin Total 0.3 mg/dL (0.0-1.0); Blood Urea Nitrogen 9 mg/dL (9-16); C Reactive Protein 1.84 mg/dL (< or = 0.50); Calcium 9.3 mg/dL (8.4-10.2); Carbon Dioxide 29 mmol/L (22-29); Chloride 103 mmol/L (96-108); Creatinine Clr Calc Pharmacy 108.3; Estimated Glomerular Filt Rate > 60; Glucose Random 132 mg/dL (60-115); Potassium 3.4 mmol/L (3.3-5.1); Sodium 141 mmol/L (135-145); Total Protein 7.3 g/dL (6.5-8.0)
[2022-11-25 22:06] LABS: B Type Natriuretic Peptide 21 pg/mL (<100)
[2022-11-25 22:56] LABS: Erythrocyte Sedimentation Rate 26 MM/HR (0-20)
--- NOTE | 2022-11-25 23:20 | ED.EXTPRO ---
HPI - Extremity Problem General Chief complaint: Extremity Problem Stated complaint: swollen legs and red Time Seen by Provider: 11/25/22 22:56 Source: patient Mode of arrival: ambulatory Limitations: no limitations History of Present Illness HPI Narrative: Patient with history of dependent leg edema for years on amlodipine lately getting worse has gained about 50 lb in last few months noticed slight redness left lower extremity for last 2 days no fever no pain no shortness of breath or palpitation Related Data Home Medications Medication Instructions Recorded Confirmed cetirizine 10 mg tablet 10 mg PO DAILY 11/28/20 10/27/22 Previous Rx's Medication Instructions Recorded albuterol sulfate 90 mcg/actuation 2 puff inhalation Q4-6H PRN 01/10/21 aerosol inhaler (ProAir HFA) shortness of breath or wheezing 30 days #8.5 grams omeprazole 40 mg capsule,delayed 40 mg PO DAILY 30 days #30 caps 01/16/21 release albuterol sulfate 90 mcg/actuation 2 puff inhalation Q4-6H PRN 06/05/22 aerosol inhaler shortness of breath or wheezing #8.5 grams amlodipine 10 mg tablet 10 mg PO DAILY #30 tabs 10/27/22 hydrochlorothiazide 12.5 mg tablet 12.5 mg PO QAM #30 tabs 10/27/22 metoprolol succinate 100 mg 100 mg PO DAILY #30 tabs 10/27/22 tablet,extended release 24 hr (Toprol XL) cephalexin 500 mg capsule 500 mg PO QID 10 days #40 caps 11/25/22 doxycycline hyclate 100 mg tablet 100 mg PO BID #20 tabs 11/25/22 losartan 50 mg tablet 50 mg PO DAILY #30 tabs 11/25/22 Allergies Allergy/AdvReac Type Severity Reaction Status Date / Time clindamycin [CLINDAMYCIN] Allergy Severe RASH Verified 10/27/22 16:15 Review of Systems Review of Systems: Yes all other systems are reviewed and are negative PMFSH Past Medical History Medical History Back pain Essential hypertension Lower extremity edema Stroke Tingling sensation Walking pneumonia Surgical History No pertinent past surgical history Family History Family History Mother No problems noted. Father No problems noted. Social History Social History Household Members: Children Housing: House Alcohol intake: current Alcohol intake frequency: does not drink Patient Tobacco Use Status: Never used Tobacco e-Cigarette/Vaping Use: Never Used Second Hand Smoke Exposure: No Advance Directives: No Advance Directives Information Provided: No service: No Current occupational status: unemployed Current occupational exposures/hazards: No Cognitive needs: No Hearing needs: No Vision needs: No Physical Exam Vital Signs: Vital Signs: Last Vital Signs Temp 98.1 F 11/25/22 23:21 Pulse 68 11/25/22 23:21 Resp 18 11/25/22 23:21 BP 147/65 H 11/25/22 23:21 Pulse Ox 97 11/25/22 23:21 O2 Del Method Room Air 11/25/22 23:21 BMI result Body Mass Index 61.7 Appearance: Alert. Oriented X3. No acute distress. Eyes: PERRLA, No Nystagmus ENT: Pharynx normal. Oral Mucosa moist Neck: Normal inspection. Neck supple. CVS: Normal heart rate and rhythm. Pulses normal. Respiratory: No respiratory distress. Equal air entry bilateral, no wheezing/rales/rhonchi Abdomen: Soft and nontender. Bowel sounds are present, no mass palpable, no CVA tenderness Skin: Skin warm and dry. Normal skin color. Normal skin turgor. Extremities: Nonpitting lower extremity edema. No calf tenderness slight redness of left lower extremity Neuro: Oriented X 3. No motor deficit. Medications Administered Discontinued Medications Generic Name Dose Route Start Last Admin Trade Name Freq PRN Reason Stop Dose Admin Cephalexin HCl 500 mg 11/25/22 23:43 11/26/22 00:29 Cephalexin 500 Mg Capsule PO 11/25/22 23:44 500 mg ONCE ONE Administration Doxycycline Monohydrate 100 mg 11/25/22 23:43 11/26/22 00:29 Doxycycline Monohydrate 100 Mg Capsule PO 11/25/22 23:44 100 mg ONCE ONE Administration Medical Decision Making Medical Decision Making [facility] Narrative: Patient with chronic dependent leg edema been stand lead to more hours also on amlodipine may be contributing to increased leg edema will stop amlodipine advised to continue hydrochlorothiazide patient does have slight erythematous rash in left lower extremity possible cellulitis will discharge on doxycycline and Keflex and may increase the dose of hydrochlorothiazide for short time Lab Data MDM Lab Attestation statement: I reviewed the patient's lab results. 11/25/22 21:39 11/25/22 21:39 Labs: Lab Results 11/25/22 11/25/22 11/25/22 Range/Units 21:39 21:39 21:39 WBC 9.6 (4.8-10.8) X10*3/uL RBC 4.67 (4.20-5.50) X10*6/uL Hgb 12.9 (12.0-16.0) g/dl Hct 39.2 (37.0-47.0) % MCV 83.9 (80.0-98.0) fL MCH 27.6 (27.0-33.0) pg MCHC 32.9 (31.0-35.0) g/dl RDW 14.8 (11.0-16.0) % Plt Count 324 (160-400) X10*3/uL MPV 10.0 (9.4-12.3) fL Immature Gran % (Auto) 0.6 H (0.0-0.4) % Neut % (Auto) 53.1 (45-73) % Lymph % (Auto) 32.9 (20-40) % [place] % (Auto) 8.5 (2-11) % Eos % (Auto) 4.6 H (0-4) % Baso % (Auto) 0.3 (0-2) % Lymph # (Auto) 3.2 (1.2-4.9) X10*3/uL [place] # (Auto) 0.8 (0.1-1.2) X10*3/uL Eos # (Auto) 0.4 (0.0-0.4) X10*3/uL Baso # (Auto) 0.0 (0.0-0.2) X10*3/uL Abs Immat Gran (auto) 0.06 H (0.00-0.03) X10*3/uL Absolute Neuts (auto) 5.1 (2.0-8.3) x10*3/uL Absolute Nucleated RBC 0.000 (0.0-0.012) X10*3/uL Nucleated RBC % (auto) 0.0 (0.0-0.2) /100WBC ESR (0-20) MM/HR Sodium 141 (135-145) mmol/L Potassium 3.4 (3.3-5.1) mmol/L Chloride 103 (96-108) mmol/L Carbon Dioxide 29 (22-29) mmol/L Anion Gap 12 (12-20) BUN 9 (9-16) mg/dL Creatinine 0.78 (0.5-1.4) mg/dL Estim Creat Clear Calc 108.3 Estimated GFR > 60 Random Glucose 132 H (60-115) mg/dL Calcium 9.3 (8.4-10.2) mg/dL Total Bilirubin 0.3 (0.0-1.0) mg/dL AST 19 (5-31) U/L ALT 20 (0-31) U/L Alkaline Phosphatase 107 (39-117) U/L C-Reactive Protein 1.84 H (< or = 0.50) mg/dL B-Natriuretic Peptide 21 (<100) pg/mL Total Protein 7.3 (6.5-8.0) g/dL Albumin 3.8 (3.5-5.0) g/dL 11/25/22 Range/Units 21:39 WBC (4.8-10.8) X10*3/uL RBC (4.20-5.50) X10*6/uL Hgb (12.0-16.0) g/dl Hct (37.0-47.0) % MCV (80.0-98.0) fL MCH (27.0-33.0) pg MCHC (31.0-35.0) g/dl RDW (11.0-16.0) % Plt Count (160-400) X10*3/uL MPV (9.4-12.3) fL Immature Gran % (Auto) (0.0-0.4) % Neut % (Auto) (45-73) % Lymph % (Auto) (20-40) % [place] % (Auto) (2-11) % Eos % (Auto) (0-4) % Baso % (Auto) (0-2) % Lymph # (Auto) (1.2-4.9) X10*3/uL [place] # (Auto) (0.1-1.2) X10*3/uL Eos # (Auto) (0.0-0.4) X10*3/uL Baso # (Auto) (0.0-0.2) X10*3/uL Abs Immat Gran (auto) (0.00-0.03) X10*3/uL Absolute Neuts (auto) (2.0-8.3) x10*3/uL Absolute Nucleated RBC (0.0-0.012) X10*3/uL Nucleated RBC % (auto) (0.0-0.2) /100WBC ESR 26 H (0-20) MM/HR Sodium (135-145) mmol/L Potassium (3.3-5.1) mmol/L Chloride (96-108) mmol/L Carbon Dioxide (22-29) mmol/L Anion Gap (12-20) BUN (9-16) mg/dL Creatinine (0.5-1.4) mg/dL Estim Creat Clear Calc Estimated GFR Random Glucose (60-115) mg/dL Calcium (8.4-10.2) mg/dL Total Bilirubin (0.0-1.0) mg/dL AST (5-31) U/L ALT (0-31) U/L Alkaline Phosphatase (39-117) U/L C-Reactive Protein (< or = 0.50) mg/dL B-Natriuretic Peptide (<100) pg/mL Total Protein (6.5-8.0) g/dL Albumin (3.5-5.0) g/dL Discharge Plan Discharge Clinical Impression: Edema, Cellulitis Instructions: Cellulitis (DC), Leg Edema (ED) Additional Instructions: Keep your leg elevated Take antibiotics as prescribed Stop amlodipine as it might be causing swelling of the leg Start taking losartan daily for blood pressure control Take 50 mg of hydrochlorothiazide for 1 week to decrease the swelling of the leg and then back to 25 mg daily. Check blood pressure daily and follow up with PCP Prescriptions: New losartan 50 mg tablet 50 mg PO DAILY Qty: 30 0RF cephalexin 500 mg capsule 500 mg PO QID 10 Days Qty: 40 0RF doxycycline hyclate 100 mg tablet 100 mg PO BID Qty: 20 0RF No Action albuterol sulfate 90 mcg/actuation HFA aerosol inhaler 2 puff inhalation Q4-6H PRN (Reason: shortness of breath or wheezing) Qty: 8.5 0RF cetirizine 10 mg tablet 10 mg PO DAILY albuterol sulfate [ProAir HFA] 90 mcg/actuation HFA aerosol inhaler 2 puff inhalation Q4-6H PRN (Reason: shortness of breath or wheezing) 30 Days Qty: 8.5 1RF omeprazole 40 mg capsule,delayed release(DR/EC) 40 mg PO DAILY 30 Days Qty: 30 0RF amlodipine 10 mg tablet 10 mg PO DAILY Qty: 30 0RF hydrochlorothiazide 12.5 mg tablet 12.5 mg PO QAM Qty: 30 0RF metoprolol succinate [Toprol XL] 100 mg tablet extended release 24 hr 100 mg PO DAILY Qty: 30 0RF
[2022-11-25 23:21] VITALS: BP 147/65; PULSE 68; RESP 18; TEMP 36.7; O2SAT 97
[2022-11-26] MEDS: Doxycycline Monohydrate 100 MG CAPSULE PO (00:29)
[2022-11-26] MEDS: cephALEXin 500 MG CAPSULE PO (00:29)
== END 2022-11-26 00:33 | disposition home or self-care (01) ==
PROVIDERS: Emergency Provider Internal Medicine; PCP Family Medicine
DX: R60.0 Localized edema (principal); L03.116 Cellulitis of left lower limb; R06.02 Shortness of breath; Z79.899 Other long term (current) drug therapy
CPT/HCPCS: 36415; 80053; 83880; 85025; 85652; 86140; 99283

== ENCOUNTER 2023-10-01 13:53 | Outpatient (AMB) | payer OTHER, SELFPAY ==
--- NOTE | 2023-10-01 14:00 | A.OFFPC_ITS ---
Vital Signs 10/01/23 14:01 Height 4 ft 11 in Weight 299 lb 2 oz BMI 60.4 BP 140/76 H Blood Pressure Location Lt brachial Position Sitting Pulse 77 Pulse Source Pulse Oximeter Pulse Oximetry (%) 98 Oxygen Delivery Method Room Air Intake Visit Reasons: PE and health maintenance to continue med Intake Note: Patient is here for her physical today. She complains of swollen hands and feet and back pain. Allergies clindamycin [CLINDAMYCIN] Allergy (Severe, Verified 10/01/23 14:06) RASH Medication List - Last Reconciled 10/01/23 by Henrry Asencio MD albuterol sulfate 90 mcg/actuation 2 puffs inhalation Q4-6H PRN albuterol sulfate 90 mcg/actuation (Ventolin HFA) 2 puffs inhalation Q6H PRN hydrochlorothiazide 12.5 mg PO QAM 30 days Tobacco use date assessed: 10/01/23 Dental Screening Dental Screen Date: 10/27/22 Did you have a dental visit in the last 12 months?: Yes Did you have a dental problem in the last 6 months where you did not have access to dental care?: No Was dental information given to patient?: Patient has dentist HPI PE and health maintenance to continue med HPI Details 53 y/o female presents for an extended e xam with f/u labs and health maintenance. No recent labs to review. Pt has complaints of swollen hands/feet. Pt also does note she feels short of breath when laying back. She also has complaints of back pain. Blood pressure today 140/76. She is on hydrochlorothiazide 12.5mg. Pt reports hearing changes. Pt has complaints of a rash L buttock. A1c today 10/01/23 6.1%. [facility] Medical History (Updated 10/01/23 @ 14:44 by Rogelio Celeste) Tingling sensation Back pain Walking pneumonia Stroke Lower extremity edema Essential hypertension Surgical History (Updated 10/01/23 @ 14:10 by Ashely Garner CMA) [place] teeth removed No pertinent past surgical history Family History Mother No problems noted. Father No problems noted. Social History Household Members: Children Housing: House Alcohol intake: current Alcohol intake frequency: does not drink Patient Tobacco Use Status: Never used Tobacco e-Cigarette/Vaping Use: Never Used Second Hand Smoke Exposure: No service: No Current occupational status: unemployed Current occupational exposures/hazards: No Cognitive needs: No Hearing needs: No Vision needs: Yes (Patient wears glasses) Questionnaire PHQ-9 Over the last 2 weeks, how often have you been bothered by any of the following problems? 1. Little interest or pleasure in doing things: not at all 2. Feeling down, depressed, or hopeless: not at all 3. Trouble falling or staying asleep, or sleeping too much: not at all 4. Feeling tired or having little energy: not at all 5. Poor appetite or overeating: not at all 6. Feeling bad about yourself - or that you are a failure or have let yourself or your family down: not at all 7. Trouble concentrating on things, such as reading the newspaper or watching television: not at all 8. Moving or speaking so slowly that other people could have noticed. Or the opposite - being so fidgety or restless that you have been moving around a lot more than usual: not at all 9. Thoughts that you would be better off or of hurting yourself in some way: not at all Total score: 0 Source: Developed by Drs. Markell Zhao, Torrie Georges, Ephraim Fernandes and colleagues, with an educational curry from [employer]. Thrive Questionnaire Date Thrive assessed: 10/01/23 I am a: Patient What is your living situation today?: I have a steady place to live Within the past 12 months, did the food you bought not last and you didn't have the money to get more?: Never true Within the past 12 months, did you worry whether your food would run out before you got money to buy more?: Never true Do you have trouble paying for medicines?: No Do you have trouble getting transportation to medical appointments?: No Do you have trouble paying your heating and electricity bill?: Yes Do you have trouble taking care of your child, family member or friend?: No Do you have trouble with day-to-day activities such as bathing, preparing meals, shopping, managing finances, etc.?: No Are you currently unemployed and looking for a job?: Yes Are you interested in more education?: No THRIVE Score: 1 AUDIT C Alcohol Use Questionnaire (AUDIT-C) 1. How often do you have a drink containing alcohol?: Monthly or less 2. How many drinks containing alcohol do you have on a typical day when you are drinking?: 3 or 4 3. How often do you have six or more drinks on one occasion?: Never Total Score: 2 PAUL-7 AMB Questionnaire PAUL-7 Date PAUL - 7 assessed: 10/01/23 Feeling nervous, anxious, or on edge: 2 = More than half the days Not being able to stop or control worryin = Nearly every day Worrying too much about different things: 3 = Nearly every day Trouble relaxin = Nearly every day Being so restless that it is hard to sit still: 1 = Several days Becoming easily annoyed or irritable: 1 = Several days Feeling afraid as if something awful might happen: 1 = Several days Total PAUL-7 score (0-4 normal; 5-9 mild; 10-14 moderate; 15-21 severe): 14 Source: Developed by Drs. Markell Zhao, Torrie Georges, Ephraim Fernandes and colleagues, with an educational curry from [employer]. Review of Systems Const Denies chills, Denies fatigue, Denies fever(s), Denies headache(s) and Denies weakness Eyes Denies change in vision ENT Denies dizziness, Denies headache(s), Denies hearing loss, Denies nasal congestion, Denies sinus pain, Denies sinus pressure and Denies sore throat Card Denies chest pain, Denies lightheadedness, Denies dyspnea and Denies other (palpitations) Resp Denies cough, Denies dyspnea and Denies wheezing GI Denies abdominal pain, Denies melena, Denies hematochezia, Denies change in bowel habits, Denies dyspepsia and Denies nausea Denies hematuria and Denies dysuria Musc Denies abnormal gait, Denies myalgias, Denies arthralgias, Denies numbness and Denies tingling Skin/Breast Reports rash, Denies unusual bruising and Denies wounds Neuro Denies abnormal gait, Denies dizziness, Denies headache(s), Denies memory loss, Denies numbness, Denies Sensory deficit (Neuro), Denies tingling and Denies weakness Psych Denies anxiety, Denies depression and Denies memory loss Endo Denies cold intolerance, Denies fatigue, Denies heat intolerance, Denies polydipsia and Denies polyuria Harsha/Lymph Denies easy bleeding and Denies easy bruising Aller/Immun Denies wheezing Physical exam (Primary Care) Vital Signs: Last Vital Signs Pulse 77 10/01/23 14:01 BP 140/76 H 10/01/23 14:01 Pulse Ox 98 10/01/23 14:01 Oxygen Delivery Method Room Air 10/01/23 14:01 BMI result Body Mass Index 60.4 Tobacco/Smoking Status: Tobacco use Status Tobacco use date assessed 10/01/23 10/01/23 14:14 Patient Tobacco Use Status Never used Tobacco 10/01/23 14:05 e-Cigarette/Vaping Use Never Used 10/01/23 14:05 PHQ-9: PHQ-9 Score PHQ-9: Total score 0 10/01/23 14:21 Thrive Assessment: Date of Thrive Assessment Date Thrive assessed 10/01/23 10/01/23 14:14 Const General: no acute distress, well developed, alert and awake Nutritional Appearance: well nourished Orientation/consciousness: patient oriented x3 HENMT Head: Yes normocephalic and Yes atraumatic Ears: hearing grossly normal bilaterally and TM's normal bilaterally General nose exam: Normal external nose present and Normal nares present Mouth: Normal oral and palatal mucosa present and moist mucous membranes Teeth and gingiva: dentition normal Throat: Yes posterior oropharynx normal Eyes General: appearance normal, both eyes and all related structures Pupils: Equal, round and reactive pupils present and Pupil accommodation reflex normal EOM: EOMs intact bilaterally Neck Neck: Yes normal visual inspection, Yes no lymphadenopathy and Yes trachea midline Thyroid: Thyroid normal Carotids: no bruits Lymphatic: no lymphadenopathy noted Chest Chest palpation & inspection: normal inspection of the chest Resp Effort & Inspection: normal respiratory effort Auscultation: clear to auscultation bilaterally Cardio Rate: regular rate Rhythm: regular rhythm Heart sounds: S1 normal heart sound present, S2 normal heart sound present, no gallops, no murmurs and no rubs Bruits: no abdominal aortic bruits and no carotid bruits GI Palpation (GI): No Abdominal aortic bruit present, Soft to palpation, nontender, No hepatosplenomegaly present and No Rebound tenderness present Auscultation: normal bowel sounds General: Yes no CVA tenderness Back/Spine/Pelvis Back: no CVA tenderness Cervical Spine: cervical ROM normal and No Cervical spine tenderness Thoracic/Lumbar Spine: thoraco-lumbar ROM normal, No pain with thoraco-lumbar ROM, No thoracic spinal tenderness and No lumbar spinal tenderness Skin Lesions: no lesions Rashes: rash noted (rash L buttock) Trauma: no lacerations or abrasions Wounds: no wounds Nails: normal Neuro General: patient oriented x3 Cranial nerves: Yes Equal, round and reactive pupils present Cognition (Neuro): normal cognition Gait exam (Neuro): Normal gait present Motor exam (neuro): 5/5 motor strength present throughout Sensory Exam: No Sensory deficit (Neuro) Deep tendon reflexes (DTR's): Right patellar reflex intensity grade: 2+ and Left patellar reflex intensity grade: 2+ Extrem Other: bilateral LE swelling General: Yes normal to inspection Psych Appearance: grossly normal Affect: normal affect Attitude: cooperative Thought process: Normal thought process present Assessment and Plan Assessment & Plan (1) Essential hypertension: Code(s): I10 - Essential (primary) hypertension Plan: Blood?pressure?is?too?high Continue?hydrochlorothiazide Will?add?losartan (2) Swelling of extremity: Code(s): M79.89 - Other specified soft tissue disorders Plan: Swelling,?Bilateral?lower?extremities Possible?venous?insufficiency Concern?for?volume?overload/CHF?and?patient?had?echocardiogram?in??which?showed?some?diastolic?dysfunction. Will?give?her?furosemide Control?blood?pressure Check?BNP Check?echocardiogram (3) Change in hearing: Code(s): H91.90 - Unspecified hearing loss, unspecified ear Plan: Mild?change?in?hearing.??Offered?audiology?testing?and?patient?would?like?to?h old?off?on?this?for?now.??She?will?let?me?know?if?she?wants?to?pursue?testing (4) Pre-diabetes: Code(s): R73.03 - Prediabetes Plan: Encouraged?a?diet?lower?in?sugars?and?starches (5) Rash: Code(s): R21 - Rash and other nonspecific skin eruption Plan: Rash?consistent?with?shingles Will?give?her?a?script?for?valacyclovir (6) Screening for colon cancer: Code(s): Z12.11 - Encounter for screening for malignant neoplasm of colon Plan: Referred?to?Gastroenterology (7) Breast cancer screening by mammogram: Code(s): Z12.31 - Encounter for screening mammogram for malignant neoplasm of breast Plan: Overdue?for?mammogram Ordered (8) Perimenopause: Code(s): N95.1 - Menopausal and female climacteric states Plan: Refer?to?litharge supervisor (9) Screening for cervical cancer: Code(s): Z12.4 - Encounter for screening for malignant neoplasm of cervix Plan: Refer?to?litharge supervisor (10) Adult general medical exam: Code(s): Z00.00 - Encounter for general adult medical examination without abnormal findings Plan: 53-year-old?female?presents?for?an?extended?exam Encouraged?healthy?diet?with?active?lifestyle?and?plenty?of?exercise Orders: Orders Comprehensive [place]. Panel Fast Today Z00.00 - Encounter for general adult medical examination without abnormal findings Microalbumin, Random (w Creat) Today I10 - Essential (primary) hypertension UA and rflx microscopic Today Z00.00 - Encounter for general adult medical examination without abnormal findings TSH reflex Free T4 Today Z00.00 - Encounter for general adult medical examination without abnormal findings Complete Blood Count Auto Diff Today Z00.00 - Encounter for general adult medical examination without abnormal findings Vitamin B12 and Folate Today E53.8 - Deficiency of other specified B group vitamins MM tomosynthesis screening BI Today Z12.31 - Encounter for screening mammogram for malignant neoplasm of breast Lipid Panel Today Z00.00 - Encounter for general adult medical examination without abnormal findings Erythrocyte Sedimentation Rate Today R60.9 - Edema, unspecified B Type Natriuretic Peptide Today I50.9 - Heart failure, unspecified CA echo transthoracic complete Today R06.02 - Shortness of breath Referrals RIVET PASSER Referral N95.1 - Menopausal and female climacteric states, Z12.4 - Encounter for screening for malignant neoplasm of cervix Medications: New losartan 50 mg PO DAILY 90 days 90 tabs 2RF furosemide 20 mg PO QAM 14 days 14 tabs 0RF valacyclovir 500 mg PO Q12H 14 days 28 tabs 0RF Coding Level of Care Code Est Pt Level 4 (96030) Diagnoses Essential hypertension I10 Swelling of extremity M79.89 Change in hearing H91.90 Pre-diabetes R73.03 Rash R21 Screening for colon cancer Z12.11 Breast cancer screening by mammogram Z12.31 Perimenopause N95.1 Screening for cervical cancer Z12.4 Adult general medical exam Z00.00
[2023-10-01 14:01] VITALS: BP 140/76; PULSE 77; O2SAT 98; BMI 60.4
== END 2023-10-01 15:10 | disposition home or self-care (01) ==
PROVIDERS: PCP Family Medicine; Visit Provider Family Medicine
DX: Z00.00 Encounter for general adult medical examination without abnormal findings (principal); R73.03 Prediabetes; I10 Essential (primary) hypertension; M79.89 Other specified soft tissue disorders; H91.93 Unspecified hearing loss, bilateral; R21 Rash and other nonspecific skin eruption; Z12.11 Encounter for screening for malignant neoplasm of colon; Z12.31 Encounter for screening mammogram for malignant neoplasm of breast; N95.1 Menopausal and female climacteric states
CPT/HCPCS: 83036; 99214; 99396

== ENCOUNTER 2023-10-04 10:12 | Outpatient (REF) | payer OTHER, SELFPAY ==
[2023-10-04 12:25] LABS: Appearance Urine Cloudy; Color Urine Yellow; Glucose Urine UA Negative (Negative); Leukocyte Esterase Urine Negative (Negative); Nitrite Urine Negative (Negative); Urine Blood Negative (Negative); Urine Ketones Negative (Negative); Urine Protein Negative (Neg-Trace)
[2023-10-04 12:26] LABS: Basophils Percent Auto 0.5 % (0-2); Eosinophils Absolute Auto 0.5 X10*3/uL (0.0-0.4); Eosinophils Percent Auto 5.7 % (0-4); Hematocrit 38.8 % (37.0-47.0); Hemoglobin 12.8 g/dl (12.0-16.0); Imm Gran Abs Auto 0.03 X10*3/uL (0.00-0.03); Imm Gran Pct Auto 0.4 % (0.0-0.4); Lymphocytes Absolute Auto 2.2 X10*3/uL (1.2-4.9); Lymphocytes Percent Auto 28.2 % (20-40); MANUAL DIFF FLAG NO; Mean Corpuscular Hemoglobin 27.9 pg (27.0-33.0); Mean Corpuscular Volume 84.5 fL (80.0-98.0); Mean Platelet Volume 11.4 fL (9.4-12.3); Monocytes Absolute Auto 0.7 X10*3/uL (0.1-1.2); Monocytes Percent Auto 8.7 % (2-11); Neutrophils Absolute Auto 4.5 x10*3/uL (2.0-8.3); Neutrophils Percent Auto 56.5 % (45-73); Platelet Count 323 X10*3/uL (160-400); Red Blood Count 4.59 X10*6/uL (4.20-5.50); White Blood Count 7.9 X10*3/uL (4.8-10.8)
[2023-10-04 12:57] LABS: B Type Natriuretic Peptide 28 pg/mL (<100)
[2023-10-04 13:07] LABS: Creatinine Urine 180.37 mg/dL; Microalbum/Creatinine Ratio Ur 17.1 ug/mg cr (<30)
[2023-10-04 13:13] LABS: Alanine Aminotransferase 19 U/L (0-31); Albumin Level 3.6 g/dL (3.5-5.0); Alkaline Phosphatase 107 U/L (39-117); Anion Gap 15 (12-20); Aspartate Amino Transferase 18 U/L (5-31); Bilirubin Total 0.4 mg/dL (0.0-1.0); Blood Urea Nitrogen 9 mg/dL (9-16); Calcium 8.9 mg/dL (8.4-10.2); Carbon Dioxide 29 mmol/L (22-29); Chloride 103 mmol/L (96-108); Cholesterol 218 mg/dL (<200); Erythrocyte Sedimentation Rate 19 MM/HR (0-20); Estimated Glomerular Filt Rate > 60; Glucose Fasting 86 mg/dL (60-99); HDL Cholesterol 47 mg/dL (>40); LDL Cholesterol Calculated 153 mg/dL (<100); Potassium 3.6 mmol/L (3.3-5.1); Sodium 143 mmol/L (135-145); Total Protein 6.9 g/dL (6.5-8.0); Triglycerides 90 mg/dL (<150)
[2023-10-04 13:24] LABS: Rheumatoid Factor < 13.0 IU/mL (<15.0)
[2023-10-04 13:30] LABS: TSH reflex Free T4 1.91 uIU/mL (0.32-4.0)
[2023-10-04 13:45] LABS: Vitamin B12 321 pg/mL (200-900)
[2023-10-05 23:27] LABS: CRP High Sensitivity 16.6 mg/L
== END 2023-10-04 10:13 | disposition home or self-care (01) ==
LOC: HO.WFDLDS 10:12
PROVIDERS: Nurse Practitioner Family; Visit Provider Family Medicine
DX: Z00.00 Encounter for general adult medical examination without abnormal findings (principal); R20.2 Paresthesia of skin; M54.50 Low back pain, unspecified; G89.29 Other chronic pain; I10 Essential (primary) hypertension; I50.9 Heart failure, unspecified
CPT/HCPCS: 36415; 80053; 80061; 81003; 82043; 82570; 82607; 82746; 83880; 84443; 85025; 85652; 86141; 86431

== ENCOUNTER 2023-10-22 13:54 | Outpatient (AMB) | payer OTHER, SELFPAY ==
[2023-10-22 14:21] VITALS: BP 118/64; PULSE 66; O2SAT 96; BMI 60.4
--- NOTE | 2023-10-22 14:21 | A.OFFPC_ITS ---
Vital Signs 10/22/23 14:21 Height 4 ft 11 in Weight 299 lb 2 oz BMI 60.4 BP 118/64 Blood Pressure Location Lt brachial Position Sitting Pulse 66 Pulse Source Pulse Oximeter Pulse Oximetry (%) 96 Oxygen Delivery Method Room Air Intake Visit Reasons: f/u CPE-labs in person Intake Note: Patient is here to follow up on labs, edema of both legs, and ?CHF. Allergies clindamycin [CLINDAMYCIN] Allergy (Severe, Verified 10/22/23 14:25) RASH Medication List - Last Reconciled 10/22/23 by Henrry Asencio MD albuterol sulfate 90 mcg/actuation 2 puffs inhalation Q4-6H PRN albuterol sulfate 90 mcg/actuation (Ventolin HFA) 2 puffs inhalation Q6H PRN atorvastatin 20 mg PO QPM 90 days furosemide 10 mg (1/2 x 20 mg) PO QAM PRN 14 days hydrochlorothiazide 12.5 mg PO QAM 30 days losartan 50 mg PO DAILY 90 days naproxen 500 mg PO BID PRN 30 days valacyclovir 500 mg PO Q12H 14 days Tobacco use date assessed: 10/01/23 Dental Screening Dental Screen Date: 10/27/22 HPI f/u CPE-labs in person HPI Details 53 y/o female presents to f/u HTN, CPE-l abs, LE edema, ?CHF. Continued HCTZ, added losartan. Pt notes echocardiogram scheduled on the . Blood pressure today 118/64. She is on losartan 50mg, hydrochlorothiazide 12.5mg. Pt notes LE swelling worse during the summer but improves during winter. [facility] Medical History (Updated 10/22/23 @ 14:56 by Rogelio Celeste) Tingling sensation Back pain Walking pneumonia Stroke Lower extremity edema Essential hypertension Surgical History (Updated 10/01/23 @ 14:10 by Ashely Garner CMA) [place] teeth removed No pertinent past surgical history Family History Mother No problems noted. Father No problems noted. Social History Household Members: Children Housing: House Alcohol intake: current Alcohol intake frequency: does not drink Patient Tobacco Use Status: Never used Tobacco e-Cigarette/Vaping Use: Never Used Second Hand Smoke Exposure: No service: No Current occupational status: unemployed Current occupational exposures/hazards: No Cognitive needs: No Hearing needs: No Vision needs: Yes (Patient wears glasses) Questionnaire Thrive Questionnaire Date Thrive assessed: 10/01/23 PAUL-7 AMB Questionnaire PAUL-7 Date PAUL - 7 assessed: 10/01/23 Source: Developed by Drs. Markell Zhao, Torrie Georges, Ephraim Fernandes and colleagues, with an educational curry from [employer]. Review of Systems Const Denies chills, Denies fatigue, Denies fever(s), Denies headache(s) and Denies weakness ENT Denies dizziness and Denies headache(s) Card Denies dyspnea Resp Denies cough, Denies dyspnea, Denies wheezing and Denies other (shortness of breath) Musc Denies numbness and Denies tingling Neuro Denies dizziness, Denies headache(s), Denies numbness, Denies tingling and D enies weakness Psych Denies anxiety and Denies depression Endo Denies fatigue Aller/Immun Denies wheezing Physical exam (Primary Care) Vital Signs: Last Vital Signs Pulse 66 10/22/23 14:21 BP 118/64 10/22/23 14:21 Pulse Ox 96 10/22/23 14:21 Oxygen Delivery Method Room Air 10/22/23 14:21 BMI result Body Mass Index 60.4 Tobacco/Smoking Status: Tobacco use Status Tobacco use date assessed 10/01/23 10/22/23 14:22 Patient Tobacco Use Status Never used Tobacco 10/22/23 14:22 e-Cigarette/Vaping Use Never Used 10/22/23 14:22 Thrive Assessment: Date of Thrive Assessment Date Thrive assessed 10/01/23 10/22/23 14:22 Const General: well developed; No acute distress Nutritional Appearance: well nourished Orientation/consciousness: patient oriented x3 HENMT Head: Yes normocephalic and Yes atraumatic Eyes General: appearance normal, both eyes and all related structures Pupils: Equal, round and reactive pupils present EOM: EOMs intact bilaterally Resp Effort & Inspection: normal respiratory effort Auscultation: clear to auscultation bilaterally Cardio Rate: regular rate Rhythm: regular rhythm Heart sounds: S1 normal heart sound present, S2 normal heart sound present, no gallops, no murmurs and no rubs Neuro General: patient oriented x3 and gait normal Cranial nerves: Yes Equal, round and reactive pupils present Extrem Other: Trace 1+ edema bilateral feet Psych Affect: normal affect Assessment and Plan Assessment & Plan (1) Essential hypertension: Code(s): I10 - Essential (primary) hypertension Plan: Blood?pressure?is?controlled.??Goal?is?less?than?140/90 Continue?current?medication?regimen (2) Lower extremity edema: Code(s): R60.0 - Localized edema Plan: Ongoing?lower?extremity?edema?which?appears?much?improved?compared?with?last?vis it. Lungs?are?clear?to?auscultation Had?concerns?regarding?CHF?at?last?visit?but?BNP?is?negative?and?lungs?are?clear . She?still?has?an echocardiogram?pending This?appears?to?be?venous?insufficiency. Encouraged?her?to?watch? salt/sodium?in?her?diet,?elevate?her?legs,?use?her?compression?stockings?when?sh e?can?not?elevate?her?legs. Will?give?her?Lasix?which?she?can?take?periodically?when?lower?extremity?edema?i ncreases?and?she?should?call?me?if?needing?further?assistance. (3) Hypercholesteremia: Code(s): E78.00 - Pure hypercholesterolemia, unspecified Plan: Cholesterol?is?too?high Start?atorvastatin Will?follow-up?on?this?in?2?months Work?at?diet?low?in?saturated?fats?and?cholesterol (4) Pre-diabetes: Code(s): R73.03 - Prediabetes Plan: A1c?in?pre?diabetes?range. Had?advised?her?to?watch?sugar s?and?starches.??Her?most?recent?fasting?blood?sugar?is?in?normal?range Continue?diet?low?in?sugars?and?starches (5) Hand pain: Code(s): M79.643 - Pain in unspecified hand Plan: Bilateral?hand?swelling CRP?elevated?as well Trial?naproxen?for?swelling. We?can?follow-up?on?this?and?she?may? need?additional?workup?or?referral?to?Rheumatology Orders: Orders Lipid Panel Today E78.00 - Pure hypercholesterolemia, unspecified, Z00.00 - Encounter for general adult medical examination without abnormal findings Comprehensive [place]. Panel Fast Today E78.00 - Pure hypercholesterolemia, unspecified, Z00.00 - Encounter for general adult medical examination without abnormal findings Medications: New naproxen 500 mg PO BID 30 days PRN 60 tabs 1RF pain atorvastatin 20 mg PO QPM 90 days 90 tabs 3RF Changed From furosemide 20 mg PO QAM 14 days 14 tabs 0RF To furosemide 10 mg (1/2 x 20 mg) PO QAM 14 days PRN 7 tabs 2RF edema Coding Level of Care Code Est Pt Level 4 (32792) Diagnoses Essential hypertension I10 Lower extremity edema R60.0 Hypercholesteremia E78.00 Pre-diabetes R73.03 Hand pain M79.643
== END 2023-10-22 15:00 | disposition home or self-care (01) ==
PROVIDERS: PCP Family Medicine; Visit Provider Family Medicine
DX: I10 Essential (primary) hypertension (principal); R73.03 Prediabetes; M79.641 Pain in right hand; M79.642 Pain in left hand; R60.0 Localized edema; E78.00 Pure hypercholesterolemia, unspecified
CPT/HCPCS: 99214

== ENCOUNTER → 2023-11-03 14:09 | Outpatient (REF) | payer OTHER, SELFPAY ==
--- NOTE | 2023-11-03 14:11 | CA_ITS ---
Transthoracic Echocardiogram Patient (Last, First, Middle): Jessie Vee, Gender: Female Date of : 1970 Age: 53 Procedure Date: 11/03/2023 Procedure Type: Transthoracic Echocardiogram Location: OP Height: 149.86 cm Weight: 135.63 kg BSA: 2.19 m2 Heart Rate: 72 bpm BP: 118 / 64 mmHg Industrial Energy Engineer: SB Referring MD: Henrry Asencio MD Symptoms: R06.02 - Shortness of breath Study Quality: Adequate w contrast ECG Rhythm: Sinus Conclusions: - The left ventricular systolic function is hyperdynamic. The visually estimated ejection fraction is >70%. - There is moderately increased left ventricular wall thickness. - No obvious valvular pathology seen on this study. Findings Procedure Information Contrast agent, definity, is being given per protocol without apparent complications. The quality of the study was technically difficult. The study quality is limited by patients body habitus. Left Ventricle Normal left ventricular cavity size. There is moderately increased left ventricular wall thickness. The left ventricular systolic function is hyperdynamic. The visually estimated ejection fraction is >70%. There is no evidence of regional wall motion abnormalities. Evidence suggests grade I (mild) diastolic dysfunction. Right Ventricle Normal right ventricular cavity size and systolic function. Atria Both atria are normal in size. Aortic Valve There is a normal trileaflet aortic valve. There is no aortic valve stenosis. There is no aortic valve regurgitation. Mitral Valve The mitral valve was not well visualized. There is no mitral valve regurgitation. There is no mitral valve stenosis. Pulmonic Valve The pulmonic valve is likely normal. Tricuspid Valve There is trace tricuspid valve regurgitation. Tricuspid regurgitation envelope is inadequate for calculation of right ventricular systolic pressure. Great Vessels The asc aorta is normal in size. Venous The inferior vena cava was not well visualized. Pericardium/Pleural There is no evidence of pericardial effusion. Prior Study Comparison No significant change compared to prior study dated: 03/11/2021. Recommendations, Care & Conclusions No obvious valvular pathology seen on this study. Measurements 2D Linear Measurements IVSd: 1.52 0.6-0.9/0.6-1.0 cm LVIDd: 4.74 3.9-5.3/4.2-5.9 cm LVIDd Index: 2.16 2.4-3.2/2.2-3.1 cm/m2 LVIDs: 3.14 2.0-3.6 cm LVPWd: 1.26 0.7-1.1 cm LA Diam: 3.50 2.7-3.8/3.0-4.0 cm LAIDs Index: 1.60 1.5-2.3 cm/m2 LV Mass: 331.51 67-162/88-224 g LV Mass Index: 151.38 43-95/49-115 g/m2 LVOT Diam: 1.90 3.0+(-)1.3 cm 2D Systolic Function EF 4C: 78.60 >55% EF 2C: 77.30 >55% EF BiP: 77.60 >55% Mitral Valve MV Pk E: 1.03 MV PK A: 1.13 MV Decel Time: 223.00 E/A: 0.90 E'Lateral: 6.09 E'Medial: 4.90 E/E' Med: 21.00 E/E' Lat: 16.90 PHT: 65.00 MVA PHT: 3.38 Decel Story: 4.62 Aortic Valve AoV Pk Sukhjinder: 1.59 AoV Pk Grad: 10.00 ASHLEY: 2.20 LVOT LVOT Pk Sukhjinder: 1.21 LVOT Mn Sukhjinder: 0.93 LVOT VTI: 0.27 LVOT Pk Grad: 6.00 LVOT Mn Grad: 4.00 LVOT Diam: 1.90 LVOT Area: 2.84 Diastolic Function MV Pk E: 1.03 MV Pk A: 1.13 E/A: 0.90 E'Medial: 4.90 E/E' Med: 21.00 E' Laterial: 6.09 E/E' Lat: 16.90 Right Ventricle TAPSE (mm): 18.30 TVS' Sukhjinder: 13.50 Great Vessels Aorta Sinus of Valsalva: 2.90 2.0-3.5 cm Ao Asc: 3.40 2.1-3.4 cm Pulmonary Veins Pulm Vein S/D 1.20 Pulmonary Valve PV Pk Sukhjinder: 0.92 Peak PV Grad: 3.00 Updated in Other Vendor System with Status of Final Hira Tamez MD electronically signed on 11/04/2023 4:01:58 PM with status of Final
== END ==
LOC: HO.CARD 14:09
PROVIDERS: PCP Family Medicine; Visit Provider Family Medicine
DX: Z12.31 Encounter for screening mammogram for malignant neoplasm of breast (principal); R06.02 Shortness of breath
CPT/HCPCS: 77063; 77067; 93306; Q9957

== ENCOUNTER → 2023-11-03 14:11 | Outpatient (BNV) | payer OTHER, SELFPAY | PROVIDERS: PCP Family Medicine; Visit Provider Internal Medicine | DX: I51.89 Other ill-defined heart diseases (principal) | CPT/HCPCS: 93306 ==

== ENCOUNTER → 2023-11-03 15:15 | Outpatient (BNV) | payer OTHER, SELFPAY | PROVIDERS: PCP Family Medicine; Visit Provider Radiology Diagnostic Radiology | DX: Z12.31 Encounter for screening mammogram for malignant neoplasm of breast (principal) | CPT/HCPCS: 77063; 77067 ==

== ENCOUNTER 2023-11-11 13:22 | Outpatient (AMB) | payer OTHER, SELFPAY ==
--- NOTE | 2023-11-11 13:31 | A.OFFVIS_ITS ---
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: No Information Interpreted: clinical only Veterinary Technologist: Veterinary Technologist Present Allergies clindamycin [CLINDAMYCIN] Allergy (Severe, Verified 11/11/23 13:33) RASH Medication List - Last Reconciled 11/11/23 by Yenny Freeman CNM albuterol sulfate 90 mcg/actuation 2 puffs inhalation Q4-6H PRN albuterol sulfate 90 mcg/actuation (Ventolin HFA) 2 puffs inhalation Q6H PRN atorvastatin 20 mg PO QPM 90 days furosemide 10 mg (1/2 x 20 mg) PO QAM PRN 14 days hydrochlorothiazide 12.5 mg PO QAM 30 days losartan 50 mg PO DAILY 90 days naproxen 500 mg PO BID PRN 30 days Is last menstrual period known: Yes Last menstrual period: 10/13/23 HPI HPI 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 She has never had an abnormal Pap smear she is not sexually active 10 or 12 years. She had stopped getting her. For almost a year and then it came back and she has gotten regular periods for the last 4 months. Feels like it is due in day now. She has a strong family history of breast cancer ovarian cancer many other cancers She said she had a stroke a few years she does have has a pressure she has has a pedal and lower extremity edema. She was given furosemide but has not been able to get a I am pharmacy yet because there was a prescription question that pharmacy had. She recently had an echocardiogram because her doctor her something and she needs a follow-up visit the kindergarten paraprofessional to review that.. I inquired if she gained a lot of weight during the COVID pandemic and she said she had. 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 She also has back pain and knee problems I inquired as to whether not she had thought about weight loss surgery were other methods to help her lose weight and she did site how hard it is. [facility] Medical History (Updated 10/22/23 @ 14:56 by Rogelio Celeste) Tingling sensation Back pain Walking pneumonia Stroke Lower extremity edema Essential hypertension Surgical History (Updated 10/01/23 @ 14:10 by Ashely Garner CMA) [place] teeth removed No pertinent past surgical history Family History Mother No problems noted. Father No problems noted. Social History Household Members: Children Housing: House Alcohol intake: current Alcohol intake frequency: does not drink Patient Tobacco Use Status: Never used Tobacco e-Cigarette/Vaping Use: Never Used Second Hand Smoke Exposure: No service: No Current occupational status: unemployed Current occupational exposures/hazards: No Cognitive needs: No Hearing needs: No Vision needs: Yes (Patient wears glasses) Female Reproductive History Menstrual Age of Menarche: 9 Duration of menses: 8-10 days Date of last menstrual period: 10/13/23 control method: none Total pregnancies: 3 Full term: 3 Date of last pap smear: 04/10/20 (neg.per patient) History of abnormal pap smear: No Date of Mammogram: 11/03/23 (pending) History of abnormal mammogram: Yes (2020,MM Screning digital,breast Tomosynithesis) Physical Exam Vital Signs: Last Vital Signs BP 140/70 H 11/11/23 13:32 BMI result Body Mass Index 60.4 Const General: healthy appearing, comfortable, no acute distress, well developed and alert Nutritional Appearance: average body habitus Orientation/consciousness: patient oriented x3 Limitations: no limitations HEENT Head: Yes normocephalic Neck Neck: Yes normal visual inspection Thyroid: Thyroid normal Chest Chest palpation & inspection: normal inspection of the chest Breast/axilla inspection: normal inspection of the breasts and normal inspection of the axillae Breast/axilla palpation: normal palpation of the breasts and normal palpation of the axillae Resp Effort & Inspection: normal respiratory effort GI Inspection: Yes normal to inspection, No Abdominal wall edema and No distended Palpation (GI): Soft to palpation and nontender Other: Challenging speculum exam secondary to adipose. Cervix appears pink multiparous smooth nontender difficult to feel uterus completely but nontender not enlarged. Fair tone with Kegel. Discharge appears within normal limits, scant. General: Yes bladder normal to palpation External Female Exam: normal external appearance and normal appearance of the urethra Speculum Exam - Vagina: normal appearance of the vagina, normal palpation and normal vaginal discharge Speculum Exam - Cervix: normal appearance of the cervix, normal palpation and nontender Bimanual exam- vagina & uterus: normal bimanual exam, normal palpation, uterine size normal, bladder normal to palpation, consistency normal, normal palpation, uterine mobility normal, uterine shape normal, No Cervical tenderness present, non-tender and no cervical motion tenderness Bimanual Exam- Adnexa, other: normal adnexae, no masses, normal and No adnexal tenderness Neuro General: patient oriented x3 Assessment & Plan Assessment & Plan (1) Screening for cervical cancer: Code(s): Z12.4 - Encounter for screening for malignant neoplasm of cervix Category: Medical (2) Perimenopause: Code(s): N95.1 - Menopausal and female climacteric states Category: Medical (3) Lower extremity edema: Code(s): R60.0 - Localized edema Category: Medical Plan -----Discussed in this visit the following: healthy balanced diet, regular and consistent exercise, getting recommended health screens, doing the best she can for her particular health concerns, kegel exercises, pap smear screening and followup recommendations, mammography screening and SBE, normal changes in cycles in her life stage--- 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 She has never had an abnormal Pap smear she is not sexually active 10 or 12 years. She had stopped getting her. For almost a year and then it came back and she has gotten regular periods for the last 4 months. Feels like it is due in day now. She has a strong family history of breast cancer ovarian cancer many other cancers She said she had a stroke a few years she does have has a pressure she has has a pedal and lower extremity edema. She was given furosemide but has not been able to get a I am pharmacy yet because there was a prescription question that pharmacy had. She recently had an echocardiogram because her doctor her something and she needs a follow-up visit the kindergarten paraprofessional to review that.. I inquired if she gained a lot of weight during the COVID pandemic and she said she had. 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 She also has back pain and knee problems I inquired as to whether not she had thought about weight loss surgery were other methods to help her lose weight and she did site how hard it is I did. review that it might helpful for her to find out whether or not her mother and sister got tested for the BRCA gene as they both had breast cancer. If so she might want to talk a abou that with her primary t provider care. I did review however that obesity in an of itself is a risk factor for cancer and why we can not do anything about a genes we can do something about our weight though it is probably the heart is thing ever do.. Discussed that her back and knees and also her heart are letting her know that the weight is an issue in her health and letting her know in every way. Additionally the edema in her legs is another sign and so the difficulty breathing when she lies in a certain position, is also telling her, that parts of her body are having trouble keeping up with the weight. Acknowledged that it is very hard becoming to the decision herself, to lose wt, is the most important part of it. She very recently had her mammogram same day she had her echocardiogram. I did offer her a pelvic ultrasound to assess for anything ovarian. Reviewed that there is no easy screening test for ovarian cancer but if she ever did notice something unusual going on such as abdominal bloating that was not explained by normal GI function, that that might be an indication for checking things out more. Discussed that why we say return for annual sergeant at arms exams if she is not having any actual sergeant at arms concerns many times people like to have it be longer however if she goes longer than 3 years she be starting over as a new patient again. Pap smears in her age range with no history of abnormals would be every 5 years.. Testing was also done for gonorrhea chlamydia trichomoniasis Gardnerella Tereza.. Information information was given about patient portal she is not sure she is on it. In terms of scheduling appointments while we was say come back every year for an annual exam if her more pressing appointments are with primary care or cardiology or more pressing health needs then she will need to decide what is best used of her time. In terms of when to expect menopause her mother she believes went through menopause in her mid 50s. Coding Level of Care Code New Pt Prev Care 40-64y(69182) Diagnoses Screening for cervical cancer Z12.4 Perimenopause N95.1 Lower extremity edema R60.0
[2023-11-11 13:32] VITALS: BP 140/70; BMI 60.4
== END 2023-11-11 14:29 | disposition home or self-care (01) ==
LOC: HO.HWSM 13:22
PROVIDERS: PCP Family Medicine; Visit Provider Advanced Practice Midwife
DX: Z01.419 Encounter for gynecological examination (general) (routine) without abnormal findings (principal); N95.1 Menopausal and female climacteric states; R60.0 Localized edema
CPT/HCPCS: 99386

== ENCOUNTER 2023-11-11 13:22 | Outpatient (REF) | payer OTHER, SELFPAY ==
[2023-11-16 04:06] LABS: CT PCR NOT DETECTED (Not Detect.); NG PCR NOT DETECTED (Not Detect.)
[2023-11-16 09:03] LABS: Bacterial Vaginosis PCR NEGATIVE (Negative); Candida Group PCR NOT DETECTED (Not Detect); Candida glab krusei PCR NOT DETECTED (Not Detect); Trichomonas vaginalis PCR NOT DETECTED (Not Detect)
[2023-11-17 13:08] LABS: HPV mRNA E6/E7 Not Detected (Not Detected)
== END 2023-11-11 13:23 | disposition home or self-care (01) ==
LOC: HO.LAB 13:22
PROVIDERS: PCP Family Medicine; Visit Provider Advanced Practice Midwife
DX: Z01.419 Encounter for gynecological examination (general) (routine) without abnormal findings (principal); Z11.51 Encounter for screening for human papillomavirus (HPV); Z20.2 Contact with and (suspected) exposure to infections with a predominantly sexual mode of transmission; N89.8 Other specified noninflammatory disorders of vagina
CPT/HCPCS: 0352U; 36415; 87491; 87591; 87624; 88175; 99386

== ENCOUNTER 2023-11-25 15:34 | Outpatient (AMB) | payer OTHER, SELFPAY ==
--- NOTE | 2023-11-25 15:36 | MHC.OFFWIV ---
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 Started 4 days ago Patient Tobacco Use Status: Never used Tobacco Allergies clindamycin [CLINDAMYCIN] Allergy (Severe, Verified 11/25/23 15:44) RASH Do you need a note to return to daycare/school/sports/work: No HPI HPI Comments History of Present Illness Details 53 y/o obese female who presents to the walk in clinic with c/o left knee pain for few days now. Denies any recent injury or trauma to the knee. She has been taking NAproxen with good relief. [facility] Medical History (Updated 11/17/23 @ 13:23 by Yenny Freeman CNM) Tingling sensation Back pain Walking pneumonia Stroke Lower extremity edema Essential hypertension Surgical History (Updated 10/01/23 @ 14:10 by Ashely Garner CMA) [place] teeth removed No pertinent past surgical history Family History Mother No problems noted. Father No problems noted. Social History Household Members: Children Housing: House Alcohol intake: current Alcohol intake frequency: does not drink Patient Tobacco Use Status: Never used Tobacco e-Cigarette/Vaping Use: Never Used Second Hand Smoke Exposure: No service: No Current occupational status: unemployed Current occupational exposures/hazards: No Cognitive needs: No Hearing needs: No Vision needs: Yes (Patient wears glasses) Female Reproductive History Menstrual Age of Menarche: 9 Review of Systems Const All systems reviewed & are unremarkable except as noted in HPI and below Physical Exam Vital Signs: Last Vital Signs Temp 98.3 F 11/25/23 15:38 Pulse 82 11/25/23 15:38 BP 132/84 11/25/23 15:38 Pulse Ox 96 11/25/23 15:38 Oxygen Delivery Method Room Air 11/25/23 15:38 BMI result Body Mass Index 60.0 Const General: cooperative and no acute distress Nutritional Appearance: obese morbidly obese Orientation/consciousness: patient oriented x3 Skin General skin exam: no rashes or lesions noted Neuro General: patient oriented x3, gait normal and moves all extremities Extrem Right lower extremity: normal to inspection and full ROM Left lower extremity: knee (Limited ROM due to pain) Details: normal to inspection and tenderness Location: of the patella and of the popliteal fossa; no swelling, no abrasions, no ecchymosis and no crepitus Psych Speech and movement: Normal speech and movement present Assessment & Plan Assessment & Plan (1) Strain of left knee: Code(s): S86.912A - Strain of unspecified muscle(s) and tendon(s) at lower leg level, left leg, initial encounter Qualifiers: Encounter type: initial encounter Qualified Code(s): S86.912A - Strain of unspecified muscle(s) and tendon(s) at lower leg level, left leg, initial encounter Plan: Ordered Knee Brace Ordered PT NSAIDs for pain relief Weight loss. IceHot Orders: Orders PT Evaluation and Treatment Today S86.912A - Strain of unspecified muscle(s) and tendon(s) at lower leg level, left leg, initial encounter Coding Level of Care Code Est Pt Level 3 (60452) Diagnoses Strain of left knee, initial encounter S86.912A Encounter type: initial encounter Time Spent (min) 15
[2023-11-25 15:38] VITALS: BP 132/84; PULSE 82; TEMP 36.8; O2SAT 96; BMI 60.0
== END 2023-11-25 16:38 | disposition home or self-care (01) ==
PROVIDERS: PCP Family Medicine; Visit Provider Nurse Practitioner Family
DX: S86.912A Strain of unspecified muscle(s) and tendon(s) at lower leg level, left leg, initial encounter (principal)
CPT/HCPCS: 99213

== ENCOUNTER 2023-12-02 12:21 | Outpatient (REF) | payer OTHER, SELFPAY ==
[2023-12-02 12:31] LABS: MANUAL DIFF FLAG NO
[2023-12-02 12:38] LABS: Basophils Absolute Auto 0.1 X10*3/uL (0.0-0.2); Basophils Percent Auto 0.5 % (0-2); Eosinophils Absolute Auto 0.6 X10*3/uL (0.0-0.4); Eosinophils Percent Auto 6.4 % (0-4); Hemoglobin 13.4 g/dl (12.0-16.0); Imm Gran Abs Auto 0.06 X10*3/uL (0.00-0.03); Imm Gran Pct Auto 0.6 % (0.0-0.4); Lymphocytes Absolute Auto 3.7 X10*3/uL (1.2-4.9); Mean Corpuscular HGB Conc 33.5 g/dl (31.0-35.0); Mean Corpuscular Hemoglobin 28.5 pg (27.0-33.0); Mean Corpuscular Volume 84.9 fL (80.0-98.0); Mean Platelet Volume 10.3 fL (9.4-12.3); Monocytes Absolute Auto 0.7 X10*3/uL (0.1-1.2); Monocytes Percent Auto 7.6 % (2-11); Neutrophils Absolute Auto 4.5 x10*3/uL (2.0-8.3); Neutrophils Percent Auto 46.9 % (45-73); Platelet Count 292 X10*3/uL (160-400); Red Blood Count 4.71 X10*6/uL (4.20-5.50); Red Cell Distribution Width 13.7 % (11.0-16.0); White Blood Count 9.6 X10*3/uL (4.8-10.8)
[2023-12-02 13:09] LABS: Alanine Aminotransferase 23 U/L (0-31); Albumin Level 3.9 g/dL (3.5-5.0); Alkaline Phosphatase 117 U/L (39-117); Anion Gap 11 (12-20); Aspartate Amino Transferase 22 U/L (5-31); Bilirubin Total 0.4 mg/dL (0.0-1.0); Blood Urea Nitrogen 10 mg/dL (9-16); Calcium 9.4 mg/dL (8.4-10.2); Carbon Dioxide 30 mmol/L (22-29); Chloride 104 mmol/L (96-108); Cholesterol 177 mg/dL (<200); Estimated Glomerular Filt Rate > 60; Glucose Fasting 98 mg/dL (60-99); HDL Cholesterol 49 mg/dL (>40); LDL Cholesterol Calculated 112 mg/dL (<100); Potassium 3.7 mmol/L (3.3-5.1); Sodium 141 mmol/L (135-145); Total Protein 7.4 g/dL (6.5-8.0); Triglycerides 82 mg/dL (<150)
[2023-12-02 13:27] LABS: Erythrocyte Sedimentation Rate 16 MM/HR (0-20)
[2023-12-02 13:39] LABS: Folate 11.5 ng/mL (> or = 4.0); Vitamin B12 442 pg/mL (200-900)
== END 2023-12-02 12:22 | disposition home or self-care (01) ==
LOC: HO.LAB 12:21
PROVIDERS: PCP Family Medicine; Visit Provider Family Medicine
DX: Z00.00 Encounter for general adult medical examination without abnormal findings (principal); E78.00 Pure hypercholesterolemia, unspecified; R60.9 Edema, unspecified; E53.8 Deficiency of other specified B group vitamins
CPT/HCPCS: 36415; 80053; 80061; 82607; 82746; 85025; 85652

== ENCOUNTER 2023-12-07 11:23 | Outpatient (AMB) | payer OTHER, SELFPAY ==
--- NOTE | 2023-12-07 11:31 | MHC.PC.OV ---
Vital Signs 12/07/23 11:35 12/07/23 11:38 Height 5 ft Weight 297 lb 4 oz BMI 58.0 BP 188/77 H 176/76 H Blood Pressure Location Lt brachial Lt brachial Position Sitting Sitting Respiration 16 Pulse 79 Pulse Source Pulse Oximeter Temp 96.8 F Temp Source Tympanic Pulse Oximetry (%) 96 Oxygen Delivery Method Room Air Intake Visit Reasons: follow up cholesterol Intake Note: f/u for cholestrerol Allergies clindamycin [CLINDAMYCIN] Allergy (Severe, Verified 12/07/23 11:34) RASH Tobacco use date assessed: 10/01/23 Dental Screening Dental Screen Date: 10/27/22 HPI follow up cholesterol HPI Details 53 y/o female presents to f/u HLD. Had started her on artovastatin. Also had bilateral hand swelling and elevated CRP. Had given her naproxen. Labs drawn 12/02/23. Reviewed labs with pt. Triglycerides 82. TC 177. LDL improved from 153 to 112. HDL 49. Complaints of pre syncope, shortness of breath. She does have hx of stroke. She notes she has been going to physical therapy for L leg pain. HPI Comments History of Present Illness Details Documentation assistance for Henrry Asencio MD, was provided by Rogelio Celeste, Code Enforcement Inspector on 12/07/2023 at 12:02 PM EST. I, Dr. Asencio, have read, observed, and verified documentation. [facility] Medical History (Updated 12/07/23 @ 11:57 by Rogelio Celeste) Tingling sensation Back pain Walking pneumonia Stroke Lower extremity edema Essential hypertension Surgical History (Updated 10/01/23 @ 14:10 by Ashely Garner CMA) [place] teeth removed No pertinent past surgical history Family History Mother No problems noted. Father No problems noted. Social History Household Members: Children Housing: House Alcohol intake: current Alcohol intake frequency: does not drink Patient Tobacco Use Status: Never used Tobacco e-Cigarette/Vaping Use: Never Used Second Hand Smoke Exposure: No service: No Current occupational status: unemployed Current occupational exposures/hazards: No Cognitive needs: No Hearing needs: No Vision needs: Yes (Patient wears glasses) Female Reproductive History Menstrual Age of Menarche: 9 Questionnaire Thrive Questionnaire Date Thrive assessed: 10/01/23 PAUL-7 AMB Questionnaire PAUL-7 Date PAUL - 7 assessed: 10/01/23 Source: Developed by Drs. Markell Zhao, Torrie Georges, Ephraim Fernandes and colleagues, with an educational curry from [employer]. Review of Systems Const Denies chills, Denies fatigue, Denies fever(s), Denies headache(s) and Denies weakness ENT Denies dizziness and Denies headache(s) Card Reports dyspnea Resp Denies cough, Reports dyspnea, Denies wheezing and Denies other (shortness of breath) Musc Denies numbness and Denies tingling Neuro Denies dizziness, Denies headache(s), Denies numbness, Denies tingling and Denies weakness Psych Denies anxiety and Denies depression Endo Denies fatigue Aller/Immun Denies wheezing Physical exam (Primary Care) Vital Signs: Last Vital Signs Temp 96.8 F 12/07/23 11:35 Pulse 79 12/07/23 11:35 Resp 16 12/07/23 11:35 BP 176/76 H 12/07/23 11:38 Pulse Ox 96 12/07/23 11:35 Oxygen Delivery Method Room Air 12/07/23 11:35 BMI result Body Mass Index 58.0 Tobacco/Smoking Status: Tobacco use Status Tobacco use date assessed 10/01/23 12/07/23 11:32 Patient Tobacco Use Status Never used Tobacco 12/07/23 11:32 e-Cigarette/Vaping Use Never Used 12/07/23 11:32 Thrive Assessment: Date of Thrive Assessment Date Thrive assessed 10/01/23 12/07/23 11:32 Const General: well developed; No acute distress Nutritional Appearance: well nourished and obese morbidly obese Orientation/consciousness: patient oriented x3 HENMT Head: Yes normocephalic and Yes atraumatic Eyes General: appearance normal, both eyes and all related structures Pupils: Equal, round and reactive pupils present EOM: EOMs intact bilaterally Resp Effort & Inspection: normal respiratory effort Neuro General: patient oriented x3 and gait normal Cranial nerves: Yes Equal, round and reactive pupils present Psych Affect: normal affect Assessment and Plan Assessment & Plan (1) Hypercholesteremia: Code(s): E78.00 - Pure hypercholesterolemia, unspecified Plan: Patient?with?a?history?of?CVA?and?possible?myocardial?infarction; abnormal?myocardial?perfusion?scan, presents?for?follow-up?hyperlipidemia. Goal?for?LDL?cholesterol?is?less?than?70.??She?was?started?on?atorvastatin?and?LDL?has?come?down?from?153?to?112.??Still?above?goal. Will?increase?atorvastatin She?has?ongoing?shortness?of?breath?and?notes?today?that?she?also?has?episodes?of?dizziness/presyncope. Given?history?of?CVA,?she?should?be?on?a?baby?aspirin. Her?blood?pressure?is?significantly?elevated?despite?taking?losartan?and?hydrochlorothiazide?as?prescribed. Will?increase?hydrochlorothiazide?which?will?also?help?with?her?lower?extremity?edema?to?some?degree?and?will?add?metoprolol.??Continue?losartan She?has?a?history?of abnormal?myocardial?perfusion?scan?and?shortness?of?breath.??She?had?been?followed?by?cardiology?but?has?not?followed?up?recently. Also?now?has?episodes?of?presyncope.??Will?refer?her?back?to?Cardiology. (2) Shortness of breath: Code(s): R06.02 - Shortness of breath (3) Morbid obesity: Code(s): E66.01 - Morbid (severe) obesity due to excess calories (4) History of stroke: Code(s): Z86.73 - Personal history of transient ischemic attack (TIA), and cerebral infarction without residual deficits (5) Screening for colon cancer: Code(s): Z12.11 - Encounter for screening for malignant neoplasm of colon Plan: Patient?was?referred?to?gastroenterology?but?has?not?been?contact?yet. Sent?a?new?referral?and?will?ask?the?office?to?follow-up (6) Pre-syncope: Code(s): R55 - Syncope and collapse Plan: As?above Also?filled?out?DTA?paperwork (7) Essential hypertension: Code(s): I10 - Essential (primary) hypertension Orders: Orders Lipid Panel Today E78.00 - Pure hypercholesterolemia, unspecified, Z00.00 - Encounter for general adult medical examination without abnormal findings Comprehensive [place]. Panel Fast Today E78.00 - Pure hypercholesterolemia, unspecified, Z00.00 - Encounter for general adult medical examination without abnormal findings Referrals Cardiology Referral R55 - Syncope and collapse Gastroenterology Referral Z12.11 - Encounter for screening for malignant neoplasm of colon Medications: New metoprolol succinate ER 25 mg PO BID 30 days 60 tabs 1RF aspirin 81 mg PO DAILY 90 days 90 tabs 2RF Changed From hydrochlorothiazide 12.5 mg PO QAM 30 days 30 tabs 2RF To hydrochlorothiazide 25 mg PO QAM 30 days 30 tabs 2RF From atorvastatin 20 mg PO QPM 90 days 90 tabs 3RF To atorvastatin 40 mg PO QPM 90 days 90 tabs 3RF Refilled furosemide 10 mg (1/2 x 20 mg) PO QAM 14 days PRN 7 tabs 2RF edema Coding Level of Care Code Est Pt Level 4 (80438) Diagnoses Hypercholesteremia E78.00 Shortness of breath R06.02 Morbid obesity E66.01 History of stroke Z86.73 Screening for colon cancer Z12.11 Pre-syncope R55 Essential hypertension I10
[2023-12-07 11:35] VITALS: BP 188/77; PULSE 79; RESP 16; TEMP 36; O2SAT 96; BMI 58.0
[2023-12-07 11:38] VITALS: BP 176/76
== END 2023-12-07 13:59 | disposition home or self-care (01) ==
PROVIDERS: PCP Family Medicine; Visit Provider Family Medicine
DX: R06.02 Shortness of breath (principal); E66.01 Morbid (severe) obesity due to excess calories; Z68.43 Body mass index [BMI] 50.0-59.9, adult; R55 Syncope and collapse; I10 Essential (primary) hypertension; E78.00 Pure hypercholesterolemia, unspecified; Z86.73 Personal history of transient ischemic attack (TIA), and cerebral infarction without residual deficits; Z12.11 Encounter for screening for malignant neoplasm of colon
CPT/HCPCS: 99214

== ENCOUNTER 2023-12-28 14:00 | Outpatient (RCR) | payer OTHER, SELFPAY ==
[2023-12-02 12:53] VITALS: BP 188/88; PULSE 70
== END 2024-02-09 09:47 | disposition home or self-care (01) ==
LOC: HO.PT 14:00
PROVIDERS: PCP Family Medicine; Visit Provider Nurse Practitioner Family
DX: S86.912D Strain of unspecified muscle(s) and tendon(s) at lower leg level, left leg, subsequent encounter (principal)
CPT/HCPCS: 97110; 97162; 97535

== ENCOUNTER 2024-04-18 12:42 | Outpatient (AMB) | payer OTHER, SELFPAY ==
[2024-04-18 12:50] VITALS: BP 140/80; PULSE 71; BMI 57.7
--- NOTE | 2024-04-18 12:50 | MHC.OFFVIS ---
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 Intake Note: Follow-up last seen in 2021 c/o some sob and some heart racing at the time she was having some dizziness better now Aquatics Assistant Department Head Required: No Allergies clindamycin [CLINDAMYCIN] Allergy (Severe, Verified 04/18/24 13:25) RASH Medication List - Last Reconciled 04/18/24 by Israel Springer NP albuterol sulfate 90 mcg/actuation 2 puffs inhalation Q4-6H PRN albuterol sulfate 90 mcg/actuation (Ventolin HFA) 2 puffs inhalation Q6H PRN aspirin 81 mg PO DAILY 90 days atorvastatin 40 mg PO QPM 90 days furosemide 10 mg (1/2 x 20 mg) PO QAM PRN 14 days hydrochlorothiazide 25 mg PO QAM 30 days losartan 50 mg PO DAILY 90 days metoprolol succinate ER 25 mg PO BID 90 days naproxen 500 mg PO BID PRN 30 days HPI Comments Details: This is a 53-year-old female with a history of hypertension, stroke in 2017, and morbid obesity. She was previously seen in this office 2 years ago for chest pain and shortness of breath, for which patient underwent stress test and echo. The patient has been referred to us by her primary care physician for evaluation of presyncope, which she reports has been ongoing for the past couple of months. The episodes are both positional and can occur while sitting. She also experiences palpitations/fluttering, particularly while driving. The patient reports shortness of breath during these episodes but denies any chest pain or pressure. She previously was evaluated for sleep apnea with a home test, which was positive, but was not followed up. The patient also reports fatigue and states has been sleeping a lot throughout the day. Otherwise, she denies any presyncope, syncope, chest pain, orthopnea, PND, or leg edema. [facility] Medical History Palpitations Dizziness Tingling sensation Back pain Walking pneumonia Stroke Lower extremity edema Essential hypertension Surgical History [place] teeth removed No pertinent past surgical history Family History Mother No problems noted. Father No problems noted. Social History Household Members: Children Housing: House Alcohol intake: current Alcohol intake frequency: does not drink Patient Tobacco Use Status: Never used Tobacco e-Cigarette/Vaping Use: Never Used Second Hand Smoke Exposure: No service: No Current occupational status: unemployed Current occupational exposures/hazards: No Cognitive needs: No Hearing needs: No Vision needs: Yes (Patient wears glasses) Female Reproductive History Menstrual Age of Menarche: 9 Physical Exam Vital Signs: Last Vital Signs Pulse 71 04/18/24 12:50 BP 140/80 H 04/18/24 12:50 BMI result Body Mass Index 57.7 Office Procedures EKG Details: EKG today shows underlying normal sinus rhythm 71 beats per minute, nonspecific ST and T-wave changes, [place], [place]. [id number], Complete Assessment & Plan Assessment & Plan (1) Palpitations: Code(s): R00.2 - Palpitations Category: Medical Plan: Untreated sleep apnea, concerning for potential arrhythmias. We will proceed with a Holter monitor to evaluate for this. Discussed with patient the importance of blood pressure management, heart healthy diet, exercise, losing weight, and CPAP compliance (2) Abnormal EKG: Code(s): R94.31 - Abnormal electrocardiogram [ECG] [EKG] Category: Medical Plan: EKG today shows normal sinus rhythm with nonspecific ST and T-wave changes compared to the previous EKG in 2020. We will proceed with a myocardial perfusion study to assess for ischemic changes. If the patient is unable to walk on the treadmill, we can switch to Lexiscan as an alternative. (3) Pre-syncope: Code(s): R55 - Syncope and collapse Category: Medical Plan: 11/03/2023-echo showed LVEF greater than 70%, moderately increased left ventricular wall thickness. 03/05/2021-myocardial perfusion imaging showed possible ischemia versus soft tissue attenuation artifact in the anterior wall, distal lateral wall, basal septum. Plan as above. (4) Essential hypertension: Code(s): I10 - Essential (primary) hypertension Category: Medical Plan: Patient had a stroke in 2017, which was thought to be related due to poorly controlled blood pressure. Today, blood pressure was elevated at 140/80. She is currently on losartan, hydrochlorothiazide, and metoprolol, however she has not been taking metoprolol twice daily as prescribed. Explained the importance of adhering to prescribed medication regimen. (5) Sleep apnea: Code(s): G47.30 - Sleep apnea, unspecified Category: Medical Qualifiers: Sleep apnea type: obstructive Qualified Code(s): G47.33 - Obstructive sleep apnea (adult) (pediatric) Plan: 08/05/2021-patient was evaluated with a home sleep study which was positive, however follow-up post never completed. The patient continues to report ongoing fatigue and excessive daytime sleepiness. Her STOP BANG score is 7. A referral has been made to pulmonology for CPAP mask fitting. This note was generated using voice recognition software. While every effort has been made to ensure accuracy and proper machine ceramic coater, there may be occasional errors that could affect the content or meaning of the described symptoms. Orders: Orders AMB EKG-In Office Today R00.2 - Palpitations CA stress test Today R00.2 - Palpitations, R42 - Dizziness and giddiness, R94.31 - Abnormal electrocardiogram [ECG] [EKG] NM cardiolite stress test Today R00.2 - Palpitations, R42 - Dizziness and giddiness, R94.31 - Abnormal electrocardiogram [ECG] [EKG] ECG 3 day holter monitor Today R00.2 - Palpitations, R42 - Dizziness and giddiness Referrals Pulmonology Referral G47.30 - Sleep apnea, unspecified Coding Level of Care Code Est Pt Level 4 (14436) Diagnoses Palpitations R00.2 Abnormal EKG R94.31 Pre-syncope R55 Essential hypertension I10 Obstructive sleep apnea syndrome G47.33 Sleep apnea type: obstructive CPT Codes EKG - CPT: 63699-[id number], Complete ([id number]) Time Spent (min) 31 Comment Time spent in reviewing the chart, test results, assessment, counseling and documentation.
== END 2024-04-18 13:25 | disposition home or self-care (01) ==
PROVIDERS: PCP Family Medicine; Visit Provider Internal Medicine Cardiovascular Disease
DX: R00.2 Palpitations (principal); R94.31 Abnormal electrocardiogram [ECG] [EKG]; R55 Syncope and collapse; I10 Essential (primary) hypertension; G47.33 Obstructive sleep apnea (adult) (pediatric)
CPT/HCPCS: 93010; 99214

== ENCOUNTER → 2024-04-18 12:42 | Outpatient (BNVA) | payer OTHER, SELFPAY | PROVIDERS: PCP Family Medicine; Visit Provider Internal Medicine Cardiovascular Disease | DX: I10 Essential (primary) hypertension (principal); E66.9 Obesity, unspecified; R00.2 Palpitations; R94.31 Abnormal electrocardiogram [ECG] [EKG]; R55 Syncope and collapse; R42 Dizziness and giddiness; G47.33 Obstructive sleep apnea (adult) (pediatric); Z68.43 Body mass index [BMI] 50.0-59.9, adult; Z86.73 Personal history of transient ischemic attack (TIA), and cerebral infarction without residual deficits | CPT/HCPCS: 93005; 99212 ==

== ENCOUNTER → 2024-05-15 13:06 | Outpatient (BNV) | payer OTHER, SELFPAY | PROVIDERS: PCP Family Medicine; Visit Provider Internal Medicine Cardiovascular Disease | DX: R00.0 Tachycardia, unspecified (principal) | CPT/HCPCS: 93244 ==

== ENCOUNTER 2024-07-04 09:20 | Outpatient (REF) | payer OTHER, SELFPAY ==
[2024-07-04 12:01] LABS: Alanine Aminotransferase 20 U/L (0-31); Albumin Level 3.8 g/dL (3.5-5.0); Alkaline Phosphatase 122 U/L (39-117); Anion Gap 12 (12-20); Aspartate Amino Transferase 22 U/L (5-31); Bilirubin Total 0.5 mg/dL (0.0-1.0); Blood Urea Nitrogen 10 mg/dL (9-16); Calcium 9.1 mg/dL (8.4-10.2); Carbon Dioxide 31 mmol/L (22-29); Chloride 105 mmol/L (96-108); Cholesterol 165 mg/dL (<200); Estimated Glomerular Filt Rate > 60; Glucose Fasting 101 mg/dL (60-99); HDL Cholesterol 51 mg/dL (>40); LDL Cholesterol Calculated 100 mg/dL (<100); Potassium 3.6 mmol/L (3.3-5.1); Sodium 144 mmol/L (135-145); Total Protein 7.1 g/dL (6.5-8.0); Triglycerides 74 mg/dL (<150)
== END 2024-07-04 09:21 | disposition home or self-care (01) ==
LOC: HO.LAB 09:20
PROVIDERS: PCP Family Medicine; Visit Provider Family Medicine
DX: Z00.00 Encounter for general adult medical examination without abnormal findings (principal); E78.00 Pure hypercholesterolemia, unspecified; I10 Essential (primary) hypertension; M79.643 Pain in unspecified hand; R42 Dizziness and giddiness; Z86.73 Personal history of transient ischemic attack (TIA), and cerebral infarction without residual deficits
CPT/HCPCS: 36415; 80053; 80061; 96127; 99212

== ENCOUNTER 2024-07-04 11:43 | Outpatient (AMB) | payer OTHER, SELFPAY ==
--- NOTE | 2024-07-04 12:00 | A.OFFPC_ITS ---
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 Required: No Allergies clindamycin [CLINDAMYCIN] Allergy (Severe, Verified 07/04/24 12:08) RASH Medication List - Last Reconciled 07/04/24 by Henrry Asencio MD albuterol sulfate 90 mcg/actuation 2 puffs inhalation Q4-6H PRN albuterol sulfate 90 mcg/actuation (Ventolin HFA) 2 puffs inhalation Q6H PRN aspirin 81 mg PO DAILY 90 days atorvastatin 80 mg PO QPM 90 days furosemide 10 mg (1/2 x 20 mg) PO QAM PRN 14 days hydrochlorothiazide 25 mg PO QAM 30 days losartan 100 mg PO DAILY 90 days metoprolol succinate ER 25 mg PO BID 90 days naproxen 500 mg PO BID PRN 30 days Tobacco use date assessed: 10/01/23 Dental Screening Dental Screen Date: 10/27/22 HPI Cholestoral and hand pain HPI Details 54 y/o female presents to f/u hypertensi on, labs. Labs drawn 07/04/24. Reviewed labs with pt. Triglycerides 74. TC 165. LDL 100. HDL 51. She is on artovastatin 40mg. Blood pressure today 170/80, 69p. She is on metoprolol 25mg b.i.d, losartan 50mg, HCTZ 25mg. Has complaints of hand pain today. Has complaints of vertigo. [facility] Medical History Palpitations Dizziness Tingling sensation Back pain Walking pneumonia Stroke Lower extremity edema Essential hypertension Surgical History [place] teeth removed No pertinent past surgical history Family History Mother No problems noted. Father No problems noted. Social History Household Members: Children Housing: House Alcohol intake: current Alcohol intake frequency: does not drink Patient Tobacco Use Status: Never used Tobacco e-Cigarette/Vaping Use: Never Used Second Hand Smoke Exposure: No service: No Current occupational status: unemployed Current occupational exposures/hazards: No Cognitive needs: No Hearing needs: No Vision needs: Yes (Patient wears glasses) Female Reproductive History Menstrual Age of Menarche: 9 Questionnaire PHQ-9 Over the last 2 weeks, how often have you been bothered by any of the following problems? 1. Little interest or pleasure in doing things: several days 2. Feeling down, depressed, or hopeless: several days 3. Trouble falling or staying asleep, or sleeping too much: several days 4. Feeling tired or having little energy: several days 5. Poor appetite or overeating: more than half the days 6. Feeling bad about yourself - or that you are a failure or have let yourself or your family down: not at all 7. Trouble concentrating on things, such as reading the newspaper or watching television: several days 8. Moving or speaking so slowly that other people could have noticed. Or the opposite - being so fidgety or restless that you have been moving around a lot more than usual: several days 9. Thoughts that you would be better off or of hurting yourself in some way: not at all Total score: 8 Depression Screening Interpretation: Positive Depression Screening Done: Yes 34165 - PHQ-9 Billing: Yes Source: Developed by Drs. Markell Zhao, Torrie Georges, Ephraim Fernandes and colleagues, with an educational curry from [employer]. Thrive Questionnaire Date Thrive assessed: 07/04/24 I am a: Patient What is your living situation today?: I have a steady place to live Within the past 12 months, did the food you bought not last and you didn't have the money to get more?: Never true Within the past 12 months, did you worry whether your food would run out before you got money to buy more?: Never true Do you have trouble paying for medicines?: No Do you have trouble getting transportation to medical appointments?: No Do you have trouble paying your heating and electricity bill?: Yes Do you have trouble taking care of your child, family member or friend?: No Do you have trouble with day-to-day activities such as bathing, preparing meals, shopping, managing finances, etc.?: Yes Are you currently unemployed and looking for a job?: No Are you interested in more education?: No Please select the resources that you would like help with: Utilities Currently or been in a relationship where the following occur: No concerns reported THRIVE Score: 1 AUDIT C Alcohol Use Questionnaire (AUDIT-C) 1. How often do you have a drink containing alcohol?: Monthly or less 2. How many drinks containing alcohol do you have on a typical day when you are drinking?: 1 or 2 3. How often do you have six or more drinks on one occasion?: Never Total Score: 1 Score Reviewed/Action Taken: Yes PAUL-7 AMB Questionnaire PAUL-7 Date PAUL - 7 assessed: 07/04/24 Feeling nervous, anxious, or on edge: 1 = Several days Not being able to stop or control worryin = Several days Worrying too much about different things: 1 = Several days Trouble relaxin = Several days Being so restless that it is hard to sit still: 1 = Several days Becoming easily annoyed or irritable: 1 = Several days Feeling afraid as if something awful might happen: 1 = Several days Total PAUL-7 score (0-4 normal; 5-9 mild; 10-14 moderate; 15-21 severe): 7 Source: Developed by Drs. Markell Zhao, Torrie Georges, Ephraim Fernandes and colleagues, with an educational curry from [employer]. PAUL-7 Assessment Billing PAUL-7 Assessment Tool: PAUL-7 Assessment 43093 Review of Systems Const Denies chills, Denies fatigue, Denies fever(s), Denies headache(s) and Denies weakness ENT Denies dizziness and Denies headache(s) Card Denies dyspnea Resp Denies cough, Denies dyspnea, Denies wheezing and Denies other (shortness of breath) Musc Details: Hand pain Denies numbness and Denies tingling Neuro Denies dizziness, Denies headache(s), Denies numbness, Denies tingling and Denies weakness Psych Denies anxiety and Denies depression Endo Denies fatigue Aller/Immun Denies wheezing Physical exam (Primary Care) Vital Signs: Last Vital Signs Temp 98.4 F 07/04/24 12:09 Pulse 69 07/04/24 12:09 Resp 16 07/04/24 12:09 BP 170/80 H 07/04/24 12:18 Pulse Ox 95 07/04/24 12:09 Oxygen Delivery Method Room Air 07/04/24 12:09 BMI result Body Mass Index 58.8 Tobacco/Smoking Status: Tobacco use Status Tobacco use date assessed 10/01/23 07/04/24 12:01 Patient Tobacco Use Status Never used Tobacco 07/04/24 12:01 e-Cigarette/Vaping Use Never Used 07/04/24 12:01 PHQ-9: PHQ-9 Score PHQ-9: Total score 8 07/04/24 12:18 Depression Screening Interpretation: Positive Thrive Assessment: Date of Thrive Assessment Date Thrive assessed 07/04/24 07/04/24 12:13 Currently or been in a relationship where the following occur: No concerns reported Const General: well developed; No acute distress Nutritional Appearance: well nourished Orientation/consciousness: patient oriented x3 HENMT Head: Yes normocephalic and Yes atraumatic Eyes General: appearance normal, both eyes and all related structures Pupils: Equal, round and reactive pupils present EOM: EOMs intact bilaterally Resp Effort & Inspection: normal respiratory effort Neuro General: patient oriented x3 and gait normal Cranial nerves: Yes Equal, round and reactive pupils present Psych Affect: normal affect Coding Level of Care Code Est Pt Level 4 (55522) Diagnoses Essential hypertension I10 Hypercholesteremia E78.00 Hand pain M79.643 History of stroke Z86.73 Vertigo R42 Additional Codes PAUL-7 Assessment Billing - PAUL-7 Assessment Tool: PAUL-7 Assessment 39429 ([id number]) PHQ-9 - 43411 - PHQ-9 Billing: Yes ([id number]) Assessment & Plan Assessment & Plan (1) Essential hypertension: Code(s): I10 - Essential (primary) hypertension Category: Medical Plan: Blood?pressure?is?uncontrolled. ?Goal?is?less?than?130/80 She?is?taking?metoprolol?and?hydrochlorothiazide. She?was?unaware?t hat?we?had?also?prescribed?losartan. She?will?continue?metoprolol?and?hydrochlorothiazide?as?prescribed Starting?losartan?100?mg?daily She?will?follow-up?this?week?with?the?nurse?navigator?to?recheck ?blood?pressure?and?I?adjust?her?medication?needed. She?will?follow-up?with?me?3?months. Patient?has?been?lost?to?follow-up?before?and?I?strongly?encouraged?her?to?follo w-up?with?me?to?maintain?blood?pressures?in?the?appropriate?range. We?also?discussed?that?she?has?a?history?stroke?and?this?is?a?large?risk?with?hi gh?blood?pressures. (2) Hypercholesteremia: Code(s): E78.00 - Pure hypercholesterolemia, unspecified Category: Medical Plan: LDL?cholesterol?is?100.??Goal?is?less?than?70 Increased?atorvastatin (3) Hand pain: Code(s): M79.643 - Pain in unspecified hand Category: Medical Plan: Ongoing?hand?pain?bilaterally. She?is?not?on?any?blood?thinners Renal?function?is?okay She?can use NSAIDs. (4) History of stroke: Code(s): Z86.73 - Personal history of transient ischemic attack (TIA), and cerebral infarction without residual deficits Category: Medical Plan: As?above,?needs?blood?pressure?controlled?as?soon?as?possible. Will?use?higher?dose?of?atorvastatin?to?control?cholesterol Will monitor (5) Vertigo: Code(s): R42 - Dizziness and giddiness Category: Medical Plan: She?notes?some?vertigo?symptoms?but?only?when?turning?her?head Start?physical?therapy Orders: Orders PT Evaluation and Treatment Today R42 - Dizziness and giddiness Referrals 2 Sleep Medicine Referral G47.33 - Obstructive sleep apnea (adult) (pediatric) Medications: Changed From atorvastatin 40 mg PO QPM 90 days 90 tabs 3RF To atorvastatin 80 mg PO QPM 90 days 90 tabs 3RF From losartan 50 mg PO DAILY 90 days 90 tabs 2RF To losartan 100 mg PO DAILY 90 days 90 tabs 2RF
[2024-07-04 12:09] VITALS: BP 170/80; PULSE 69; RESP 16; TEMP 36.9; O2SAT 95; BMI 58.8
[2024-07-04 12:18] VITALS: BP 170/80
--- OUTSIDE RECORDS SUMMARY | 2024-07-04 14:31 | XMS_ITS | Encounter Summary ---
Author Organization [employer] Address [address] [facility] [address] [place] [address] Care Team Providers Care Fire Alarm Repairer Name Role Phone Nicki Barnhart MD Primary Care Provider + Encounter Details Date Type Department Care Team (Latest Contact Info) Description 05/31/2019 Abstract [facility] CONVERSIONS Dental, Provider, DDS Social History Tobacco Use Types Packs/Day Years Used Date Smoking Tobacco: Never Assessed Comments Unknown Sex and Gender Information Value Date Recorded Sex Assigned at Female 02/09/2022 10:16 AM EDT Legal Sex Female 10:16 AM EDT Gender Identity Not on file Sexual Orientation Not on file documented as of this encounter Plan of Treatment Not on file documented as of this encounter Visit Diagnoses Not on filedocumented in this encounter Care Teams Fire Alarm Repairer Relationship Specialty Start Date End Date Nicki Barnhart MD [address] [place] [id number] PCP - General Family Medicine 01/28/16 documented as of this encounter
--- OUTSIDE RECORDS SUMMARY | 2024-07-04 14:31 | XMS_ITS | Clinical Summary ---
Author Organization [employer] Address [address] [facility] [address] [place] [address] Care Team Providers Care Ecd Name Role Phone Nicki Barnhart MD Primary Care Provider + Social History Tobacco Use Types Packs/Day Years Used Date Smoking Tobacco: Never Assessed Comments Unknown Sex and Gender Information Value Date Recorded Sex Assigned at Female 02/09/2022 10:16 AM EDT Legal Sex Female 10:16 AM EDT Gender Identity Not on file Sexual Orientation Not on file Plan of Treatment Health Maintenance Due Date Last Done Comments CT Colonography 1970 Colonoscopy 1970 Colorectal Cancer Screening 1970 Depression Screening 1970 FIT DNA/Cologuard 1970 FIT 1970 FOBT 1970 Sigmoidoscopy 1970 Alcohol/Substance Use Screening 1982 Tobacco Screening 1982 Pap Smear 06/27/1991 Hepatitis B Vaccines (3 of 3 - 19+ 3-dose series) 05/27/2000 04/01/2000, 11/11/1999 Cervical Cancer Screening 2000 HPV/Cotest 2000 Mammogram 04/28/2020 04/28/2018 Pneumococcal Vaccine: 50+ Years (1 of 1 - PCV) 2020 Zoster Vaccines (1 of 2) 2020 COVID-19 Vaccine (2023-2 5 season) 2023 Influenza Vaccine (#1) 2023 8, 12/19/2015, 12/27/2014 DTaP/Tdap/Td Vaccines (3 - T d or Tdap) 11/03/2031 11/02/2021, 08/17/2011 RSV Patients and Patients Aged 60 years or older (1 - 1-dose 75+ series) 2045 HIB Vaccines Aged Out No longer eligi ble based on patient's age to complete this topic HPV Vaccines Aged Out No longer eligi ble based on patient's age to complete this topic Hepatitis A Vaccines Aged Out No long er eligible based on patient's age to complete this topic IPV Vaccines Aged Out No longer eligi ble based on patient's age to complete this topic Meningococcal Vaccine Aged Out No augusto darline eligible based on patient's age to complete this topic Pneumococcal Vaccine: Pediatrics (0 to 5 Years) and At-Risk Patients (6 to 49) Years) Aged Out No longer eligible b ased on patient's age to complete this topic RSV under 20 months Aged Out No longe r eligible based on patient's age to complete this topic Rotavirus Vaccines Aged Out No longer eligible based on patient's age to complete this topic Procedures Procedure Name Priority Date/Time Associated Diagnosis Comments BI MAMMOGRAM SCREENING BILATERAL Routine 04/28/2018 9:34 AM EST from Last 3 Months or Most Recently Relevant to Health Maintenance Results * DIGITAL BILATERAL SCREEN 1 (04/28/2018 9:34 AM EST) Anatomical Region Laterality Modality Breast Bilateral Mammography 04/28/2018 9:34 AM EST Narrative 04/28/2018 9:36 AM EST Refer to the Notes tab for result details [facility] Procedure: DIGITAL BILATERAL SCREEN 1 Procedure Note Provider, MD Nya - 07/04/2022 Refer to the Notes tab for result details [facility] Procedure: DIGITAL BILATERAL SCREEN 1 Nicki Barnhart MD IMG BI PROCEDURES Final Result from Last 3 Months or Most Recently Relevant to Health Maintenance Care Teams Ecd Relationship Specialty Start Date End Date Nicki Barnhart MD [address] [place] [id number] PCP - General Family Medicine 01/28/16
== END 2024-07-04 12:42 | disposition home or self-care (01) ==
LOC: HO.HMCFM 11:44
PROVIDERS: PCP Family Medicine; Visit Provider Family Medicine
DX: I10 Essential (primary) hypertension (principal); E78.00 Pure hypercholesterolemia, unspecified; M79.643 Pain in unspecified hand; Z86.73 Personal history of transient ischemic attack (TIA), and cerebral infarction without residual deficits; R42 Dizziness and giddiness

== ENCOUNTER → 2024-07-11 10:53 | Outpatient (BNVA) | payer OTHER, SELFPAY | PROVIDERS: PCP Family Medicine; Visit Provider Family Medicine ==

== ENCOUNTER → 2024-07-17 10:58 | Outpatient (BNVA) | payer OTHER, SELFPAY | PROVIDERS: PCP Family Medicine; Visit Provider Family Medicine ==

== ENCOUNTER → 2024-07-24 10:04 | Outpatient (REF) | payer OTHER, SELFPAY ==
--- NOTE | 2024-07-24 10:07 | CA_ITS ---
Acquisition Time: 2024-07-24 10:13:04 Total Exercise Time: 00:02:23 Test Indications: Abnormal ECG SYNCOPE,Palpitations Medications: SEE H&P Protocol: SOHAIL Max HR: 129 BPM 77% of Pred: 166 BPM Max BP: 230/104 mmHG Max Work Load: 4.6 METS Exercise stress test with exercise 2 mins 23 secs of Sohail Protocol, achieving 76% MPHR, with reports of headache, dizziness and SOB, with hypertensive response to exercise, baseline BP 144/70 that ryan to 230/104. Had pt take her AM BB. BP improved. Test switched to Lexiscan. Pharmacological stress test with Lexiscan while pt swings her legs, with reports of dizziness, SOB, 2/10 left sided chest discomfort, without any arrythmias, with normotensive response to injection, starting BP at 172/82. Nondiagnostic EKG for ischemia. In recovery, pt treated with IVP Aminophylline 75 mg to reverse Lexiscan after which pt feeling back to baseline. BP improving Nuclear images pending. Test reviewed with Dr. Parish. PS- Pt's home BPs have been elevated in the 170s/90s, for which her PCP increased Metoprolol to 50 mg 2 days ago. Referred By: Israel Springer Electronically Signed By: Israel Springer
--- OUTSIDE RECORDS SUMMARY | 2024-07-24 11:25 | XMS_ITS | Encounter Summary ---
Author Organization [id number] Address [address] [facility] [address] [place] [address] Care Team Providers Care Office Professional Name Role Phone Nicki Barnhart MD Primary Care Provider + Encounter Details Date Type Department Care Team (Latest Contact Info) Description 05/31/2019 Abstract [facility] CONVERSIONS Dental, Provider, DDS Social History [...] on filedocumented in this encounter Care Teams Office Professional Relationship Specialty Start Date End Date Nicki Barnhart MD [address] [place] [phone] PCP - General Family Medicine 01/28/16 documented as of this encounter
--- OUTSIDE RECORDS SUMMARY | 2024-07-24 11:25 | XMS_ITS | Clinical Summary ---
Author Organization [employer] Address [address] [facility] [address] [place] [address] Care Team Providers Care Natural Gas Basis Trader Name Role Phone Nicki Barnhart MD Primary [...] Recently Relevant to Health Maintenance Care Teams Natural Gas Basis Trader Relationship Specialty Start Date End Date Nicki Barnhart MD [address] [place] [id number] PCP - General Family Medicine 01/28/16
== END ==
LOC: HO.CARD 10:04
PROVIDERS: PCP Family Medicine
DX: R42 Dizziness and giddiness (principal); R00.2 Palpitations; R94.31 Abnormal electrocardiogram [ECG] [EKG]
CPT/HCPCS: 78452; 93017; A9541; J0280; J2785

== ENCOUNTER → 2024-07-24 10:07 | Outpatient (BNV) | payer OTHER, SELFPAY | PROVIDERS: PCP Family Medicine | DX: R94.31 Abnormal electrocardiogram [ECG] [EKG] (principal) | CPT/HCPCS: 78452; 93016; 93018 ==

== ENCOUNTER 2024-08-02 09:20 | Outpatient (AMB) | payer OTHER, SELFPAY ==
[2024-08-02 09:29] VITALS: BP 142/82; PULSE 64; O2SAT 97; BMI 60.5
--- NOTE | 2024-08-02 09:29 | MHC.OFFVIS ---
Vital Signs 08/02/24 09:29 Height 5 ft Weight 310 lb BMI 60.5 BP 142/82 H Blood Pressure Location Rt brachial Position Sitting Pulse 64 Pulse Source Pulse Oximeter Pulse Oximetry (%) 97 Oxygen Delivery Method Room Air Intake Visit Reasons: pre colonoscopy Intake Note: NEW PATIENT for colo screening, initial. Chief Complaint; C/O mild, intermittent constipation without sign of hemorrhoids per pt. Pt also reports epigastric pain and occasional RUQ pain which seems to be associated with worsening reflux. No tx attempted for sx to this point. R And D Lab Technician Required: No Accompanied by: Self / Same As Patient Allergies clindamycin [CLINDAMYCIN] Allergy (Severe, Verified 08/02/24 09:29) RASH HPI HPI pre colonoscopy: Details: 54-year-old female with past medical history of asthma, vertigo, palpitations, history of stroke, hypercholesteremia, hypertension, LVH, abnormal stress test, morbid obesity, shortness of breath is here today for initial consultation. Patient was sent to us for colonoscopy screening. Patient never had colonoscopy in the past. No family history of CRC. Patient currently is being evaluated for abnormal stress test and SOB with Cardiology. Nuclear stress test was ordered and just completed, awaiting to have an appointment with Cardiology. Patient reports that she is unable to lie flat or on her side for a long time as she is very short of breath. We will hold off on doing colonoscopy at this moment. Patient's BMI is 60.5. Patient will be sent for Cologuard 1st. She reports severe epigastric pain no matter what she eats as well as acid reflux. Was diagnosed with H pylori in the past and treated with antibiotics, however she states that she was never retested. Currently patient is not on any PPI or H2 gopal. Patient also reports right upper quadrant pain. Patient reports pain associated with meals and sometimes pain is there even without eating. Patient reports severe abdominal bloating. Denies melena, hematochezia. Reports occasional dyspepsia without dysphagia or odynophagia. Reports constipation bowel movements every 2-3 days. Abdominal bloating worse when she is constipated. Currently not taking anything to relieve her symptoms. [facility] Medical History Palpitations Dizziness Tingling sensation Back pain Walking pneumonia Stroke Lower extremity edema Essential hypertension Surgical History [place] teeth removed No pertinent past surgical history Family History Mother No problems noted. Father No problems noted. Family/Other Colon cancer Social History Household Members: Children Housing: House Alcohol intake: current Alcohol intake frequency: does not drink Patient Tobacco Use Status: Never used Tobacco e-Cigarette/Vaping Use: Never Used Second Hand Smoke Exposure: No service: No Current occupational status: unemployed Current occupational exposures/hazards: No Cognitive needs: No Hearing needs: No Vision needs: Yes (Patient wears glasses) Female Reproductive History Menstrual Age of Menarche: 9 Review of Systems Const Denies weight gain and Denies weight loss ENT Reports no additional complaints, Denies dysphagia and Denies odynophagia Card Reports no additional complaints Resp Reports no additional complaints GI Reports abdominal pain (RUQ, epigastric), Denies belching, Denies melena, Reports bloating, Denies change in bowel habits, Reports constipation, Denies dysphagia, Denies excessive flatus, Reports dyspepsia, Reports heartburn, Denies diarrhea, Denies loose stools, Denies nausea, Denies odynophagia and Denies vomiting Reports no additional complaints Musc Reports no additional complaints Neuro Reports no additional complaints Psych Reports no additional complaints Endo Reports no additional complaints Physical Exam Vital Signs: Last Vital Signs Pulse 64 08/02/24 09:29 BP 142/82 H 08/02/24 09:29 Pulse Ox 97 08/02/24 09:29 Oxygen Delivery Method Room Air 08/02/24 09:29 BMI result Body Mass Index 60.5 Const General: healthy appearing and no acute distress Nutritional Appearance: well nourished and obese Orientation/consciousness: patient oriented x3 Resp Effort & Inspection: normal respiratory effort, able to speak in complete sentences, no tracheal deviation and symmetric chest movement Auscultation: clear to auscultation bilaterally Cardio Rate: regular rate GI Inspection: Yes normal to inspection, No distended and Yes obesity Palpation (GI): Soft to palpation, not firm, nontender and No hepatosplenomegaly present Auscultation: normal bowel sounds General: Yes no CVA tenderness Back/Spine/Pelvis Back: no CVA tenderness Skin General skin exam: elasticity normal, turgor normal and dry skin Neuro General: patient oriented x3 Psych Appearance: grossly normal Mental Status: mental status grossly normal Assessment & Plan Assessment & Plan (1) Screening for colon cancer: Code(s): Z12.11 - Encounter for screening for malignant neoplasm of colon Category: Medical (2) GERD (gastroesophageal reflux disease): Code(s): K21.9 - Gastro-esophageal reflux disease without esophagitis Qualifiers: Esophagitis presence: esophagitis presence not specified Qualified Code(s): K21.9 - Gastro-esophageal reflux disease without esophagitis (3) History of Helicobacter pylori infection: Code(s): Z86.19 - Personal history of other infectious and parasitic diseases (4) RUQ abdominal pain: Code(s): R10.11 - Right upper quadrant pain (5) Constipation: Code(s): K59.00 - Constipation, unspecified Qualifiers: Constipation type: slow transit constipation Qualified Code(s): K59.01 - Slow transit constipation (6) Postprandial epigastric pain: Code(s): R10.13 - Epigastric pain (7) Postprandial abdominal bloating: Code(s): R14.0 - Abdominal distension (gaseous) Plan Patient reports epigastric pain will do H pylori in the office today and treat empirically if positive. Patient will start taking omeprazole daily. Right upper quadrant pain after and sometimes without eating. Will send her for ultrasound to rule out cholelithiasis/cholecystitis. Discussed with patient avoiding dietary triggers. Postprandial abdominal bloating with certain food. Low FODMAP discussed with patient. List of food recommended as well as a list of food to avoid given to patient. Patient will be started on senna to help her move her bowels better. Increase fluid intake and activity to promote better bowel motility. Patient is reporting severe shortness of breath when laying down, undergoing stress testing with cardiology. Will send patient to do Cologuard 1st and if it becomes positive patient will be set up for colonoscopy. Patient might require general anesthesia if she continues to have symptoms of shortness of breath. Patient is agreeable to current plan of care and verbalizes understanding of instructions. She was given the opportunity to ask questions and all questions answered. Thank you for allowing me to participate in her care Orders: Orders Transglutaminase IgA Today R10.9 - Unspecified abdominal pain abdomen complete Today R10.9 - Unspecified abdominal pain H Pylori Breath Test Today K21.9 - Gastro-esophageal reflux disease without esophagitis Medications: New omeprazole 20 mg PO DAILY 30 caps 3RF K21.9 - Gastro-esophageal reflux disease without esophagitis sennosides (Natural Senna Laxative) 17.2 mg (2 x 8.6 mg) PO BEDTIME 60 tabs 3RF constipation K59.00 - Constipation, unspecified Coding Level of Care Code New Pt Level 4 (68418) Diagnoses Screening for colon cancer Z12.11 Gastroesophageal reflux disease, unspecified whether esophagitis present K21.9 Esophagitis presence: esophagitis presence not specified History of Helicobacter pylori infection Z86.19 RUQ abdominal pain R10.11 Slow transit constipation K59.01 Constipation type: slow transit constipation Postprandial epigastric pain R10.13 Postprandial abdominal bloating R14.0 Time Spent (min) 45 Comment 35 minutes spent with patient and additional 10 minutes spent reviewing her records
--- OUTSIDE RECORDS SUMMARY | 2024-08-02 10:15 | XMS_ITS | Encounter Summary ---
Author Organization [employer] Address [address] [facility] [address] [place] [address] Care Team Providers Care Cured Meats Supervisor Name Role Phone Nicki Barnhart MD Primary Care Provider + Encounter Details Date Type Department Care Team (Latest Contact Info) Description 05/31/2019 Abstract [facility] CONVERSIONS Dental, Provider, DDS Social History Tobacco [...] on filedocumented in this encounter Care Teams Cured Meats Supervisor Relationship Specialty Start Date End Date Nicki Barnhart MD [address] [place] [id number] PCP - General Family Medicine 01/28/16 documented as of this encounter
--- OUTSIDE RECORDS SUMMARY | 2024-08-02 10:15 | XMS_ITS | Clinical Summary ---
Author Organization [employer] Address [address] [facility] [address] [place] [address] Care Team Providers Care Ammunition Officer Name Role Phone Nicki Barnhart MD Primary [...] Recently Relevant to Health Maintenance Care Teams Ammunition Officer Relationship Specialty Start Date End Date Nicki Barnhart MD [address] [place] [phone] PCP - General Family Medicine 01/28/16
== END 2024-08-02 10:22 | disposition home or self-care (01) ==
LOC: HO.HGI 09:20
PROVIDERS: PCP Family Medicine; Visit Provider Nurse Practitioner Family
DX: K21.9 Gastro-esophageal reflux disease without esophagitis (principal); K59.01 Slow transit constipation; Z12.11 Encounter for screening for malignant neoplasm of colon; R14.0 Abdominal distension (gaseous)
CPT/HCPCS: 99204

== ENCOUNTER 2024-08-02 09:20 | Outpatient (REF) | payer OTHER, SELFPAY ==
--- OUTSIDE RECORDS SUMMARY | 2024-08-02 18:22 | XMS_ITS | Encounter Summary ---
Author Organization [employer] Address [address] [facility] [address] [place] [address] Care Team Providers Care Supervisor Covering And Lining Name Role Phone Nicki Barnhart MD Primary Care Provider + Encounter Details Date Type Department Care Team (Latest Contact Info) Description 05/31/2019 Abstract [facility] CONVERSIONS Dental, Provider, DDS Social History [...] on filedocumented in this encounter Care Teams Supervisor Covering And Lining Relationship Specialty Start Date End Date Nicki Barnhart MD [address] [place] [phone] PCP - General Family Medicine 01/28/16 documented as of this encounter
--- OUTSIDE RECORDS SUMMARY | 2024-08-02 18:22 | XMS_ITS | Clinical Summary ---
Author Organization [employer] Address [address] [facility] 7[address] [place] [address] Care Team Providers Care Office Technologist Name Role Phone Nicki Barnhart MD Primary [...] Recently Relevant to Health Maintenance Care Teams Office Technologist Relationship Specialty Start Date End Date Nicki Barnhart MD [address] [place] [phone] PCP - General Family Medicine 01/28/16
== END 2024-08-02 09:21 | disposition home or self-care (01) ==
LOC: HO.LNP 09:20
PROVIDERS: PCP Family Medicine; Visit Provider Nurse Practitioner Family
DX: Z12.11 Encounter for screening for malignant neoplasm of colon (principal); K21.9 Gastro-esophageal reflux disease without esophagitis; R10.13 Epigastric pain; R10.11 Right upper quadrant pain; K59.01 Slow transit constipation; R14.0 Abdominal distension (gaseous); Z86.19 Personal history of other infectious and parasitic diseases
CPT/HCPCS: 83013; 99202

== ENCOUNTER 2024-08-08 14:42 | Outpatient (AMB) | payer OTHER, SELFPAY ==
--- NOTE | 2024-08-08 15:06 | A.OFFPC_ITS ---
Vital Signs 08/08/24 15:08 08/08/24 15:11 Height 5 ft Weight 300 lb 2 oz BMI 58.6 BP 162/72 H 158/72 H Blood Pressure Location Lt brachial Lt brachial Position Sitting Respiration 16 Pulse 70 Pulse Source Pulse Oximeter Temp 97.9 F Temp Source Oral Pulse Oximetry (%) 96 Oxygen Delivery Method Room Air Intake Visit Reasons: f/u hypertension, chronic conditions Intake Note: patient is scheduled for hypertension, chronic conditions Information Interpreted: clinical only Network Security Analyst: Offered and Declined Is last menstrual period known: No Allergies clindamycin [CLINDAMYCIN] Allergy (Severe, Verified 08/08/24 15:09) RASH Medication List - Last Reconciled 08/08/24 by Henrry Asencio MD albuterol sulfate 90 mcg/actuation 2 puffs inhalation Q4-6H PRN albuterol sulfate 90 mcg/actuation (Ventolin HFA) 2 puffs inhalation Q6H PRN aspirin 81 mg PO DAILY 90 days atorvastatin 80 mg PO QPM 90 days hydrochlorothiazide 25 mg PO QAM 30 days losartan 100 mg PO DAILY 90 days metoprolol succinate ER 50 mg PO BID naproxen 500 mg PO BID PRN 30 days omeprazole 20 mg PO DAILY sennosides (Natural Senna Laxative) 17.2 mg (2 x 8.6 mg) PO BEDTIME Tobacco use date assessed: 10/01/23 Dental Screening Dental Screen Date: 10/27/22 HPI f/u hypertension, chronic conditions HPI Details 54 y/o female presents today to f/u rosa parry. Has complaints of a rash on both forearms. Had started her on losartan 100mg daily. Had been taking this x1 month. She notes rash started a few days ago. Blood pressure today 158/72, 70p. She is on losartan 100mg, metoprolol 50mg b.i.d. [facility] Medical History Palpitations Dizziness Tingling sensation Back pain Walking pneumonia Stroke Lower extremity edema Essential hypertension Surgical History [place] teeth removed No pertinent past surgical history Family History Mother No problems noted. Father No problems noted. Family/Other Colon cancer Social History Household Members: Children Housing: House Alcohol intake: current Alcohol intake frequency: does not drink Patient Tobacco Use Status: Never used Tobacco e-Cigarette/Vaping Use: Never Used Second Hand Smoke Exposure: No service: No Current occupational status: unemployed Current occupational exposures/hazards: No Cognitive needs: No Hearing needs: No Vision needs: Yes (Patient wears glasses) Female Reproductive History Menstrual Age of Menarche: 9 Questionnaire Thrive Questionnaire Date Thrive assessed: 07/03/24 I am a: Patient What is your living situation today?: I have a steady place to live Within the past 12 months, did the food you bought not last and you didn't have the money to get more?: Never true Within the past 12 months, did you worry whether your food would run out before you got money to buy more?: Never true Do you have trouble paying for medicines?: No Do you have trouble getting transportation to medical appointments?: No Do you have trouble paying your heating and electricity bill?: Yes Do you have trouble taking care of your child, family member or friend?: No Do you have trouble with day-to-day activities such as bathing, preparing meals, shopping, managing finances, etc.?: Yes Are you currently unemployed and looking for a job?: No Are you interested in more education?: No Please select the resources that you would like help with: Utilities Currently or been in a relationship where the following occur: No concerns reported THRIVE Score: 1 PAUL-7 AMB Questionnaire PAUL-7 Date PAUL - 7 assessed: 07/04/24 Source: Developed by Drs. Markell Zhao, Torrie Georges, Ephraim Fernandes and colleagues, with an educational curry from [employer]. Physical exam (Primary Care) Vital Signs: Last Vital Signs Temp 97.9 F 08/08/24 15:08 Pulse 70 08/08/24 15:08 Resp 16 08/08/24 15:08 BP 158/72 H 08/08/24 15:11 Pulse Ox 96 08/08/24 15:08 Oxygen Delivery Method Room Air 08/08/24 15:08 BMI result Body Mass Index 58.6 Tobacco/Smoking Status: Tobacco use Status Tobacco use date assessed 10/01/23 08/08/24 15:09 Patient Tobacco Use Status Never used Tobacco 08/08/24 15:09 e-Cigarette/Vaping Use Never Used 08/08/24 15:09 Thrive Assessment: Date of Thrive Assessment Date Thrive assessed 07/03/24 08/08/24 15:09 Currently or been in a relationship where the following occur: No concerns reported Coding Level of Care Code Est Pt Level 3 (44821) Diagnoses Essential hypertension I10 Rash R21 Assessment & Plan Assessment & Plan (1) Essential hypertension: Code(s): I10 - Essential (primary) hypertension Category: Medical Plan: Blood?pressure?is?still?too?high.??Goal?is?less?than?140/90 She?is?taking?metoprolol,?hydrochlorothiazide?and?is?taking?losartan. She?thinks?that?the?losartan?is?causing?adverse?effects.??Unclear?if?she?is?cons istent?with?this?medication?but?we?will?discontinue?it. Continue?metoprolol Will?switch?hydrochlorothiazide?to?chlorthalidone (2) Rash: Code(s): R21 - Rash and other nonspecific skin eruption Category: Medical Plan: Appears?to?have?a?contact?dermatitis?on?bilateral?forearms Does?not?appear?to?be?a?systemic?allergy?rash. Will?give?her?a?script?for?triamcinolone Medications: New triamcinolone acetonide 0.1% 1 appl topical BID 14 days 30 grams 0RF chlorthalidone 50 mg PO DAILY 90 days 90 tabs 2RF Discontinued hydrochlorothiazide Discontinued Reason: Doctor's Order 25 mg PO QAM 30 days 30 tabs 2RF losartan Discontinued Reason: Doctor's Order 100 mg PO DAILY 90 days 90 tabs 2RF
[2024-08-08 15:08] VITALS: BP 162/72; PULSE 70; RESP 16; TEMP 36.6; O2SAT 96; BMI 58.6
[2024-08-08 15:11] VITALS: BP 158/72
== END 2024-08-08 15:35 | disposition home or self-care (01) ==
LOC: HO.HMCFM 14:43
PROVIDERS: PCP Family Medicine; Visit Provider Family Medicine
DX: I10 Essential (primary) hypertension (principal); R21 Rash and other nonspecific skin eruption

== ENCOUNTER → 2024-08-08 14:42 | Outpatient (BNVA) | payer OTHER, SELFPAY | PROVIDERS: PCP Family Medicine; Visit Provider Family Medicine | DX: I10 Essential (primary) hypertension (principal); R21 Rash and other nonspecific skin eruption; Z79.899 Other long term (current) drug therapy | CPT/HCPCS: 99212 ==

== ENCOUNTER 2024-08-10 15:51 | Outpatient (REF) | payer OTHER, SELFPAY ==
--- OUTSIDE RECORDS SUMMARY | 2024-08-10 17:25 | XMS_ITS | Encounter Summary ---
Author Organization [employer] Address [address] [facility] [address] [place] [address] Care Team Providers Care Rental Car Ferry Driver Name Role Phone Nicki Barnhart MD Primary Care Provider + Encounter Details Date Type Department Care Team (Latest Contact Info) Description 05/31/2019 Abstract [facility] CONVERSIONS Dental, Provider, DDS Social History [...] on filedocumented in this encounter Care Teams Rental Car Ferry Driver Relationship Specialty Start Date End Date Nicki Barnhart MD [address] [place] [phone] PCP - General Family Medicine 01/28/16 documented as of this encounter
--- OUTSIDE RECORDS SUMMARY | 2024-08-10 17:25 | XMS_ITS | Clinical Summary ---
Author Organization [employer] Address [address] [facility] [address]t [place] [address] Care Team Providers Care Cat Scan Technologist Name Role Phone Nicki Barnhart MD [...] Recently Relevant to Health Maintenance Care Teams Cat Scan Technologist Relationship Specialty Start Date End Date Nicki Barnhart MD [address] [place] [phone] PCP - General Family Medicine 01/28/16
== END 2024-08-10 15:52 | disposition home or self-care (01) ==
LOC: HO.LNP 15:51
PROVIDERS: Visit Provider Nurse Practitioner
DX: A04.8 Other specified bacterial intestinal infections (principal)
CPT/HCPCS: 87338

== ENCOUNTER 2024-10-31 10:39 | Outpatient (AMB) | payer OTHER, SELFPAY ==
--- NOTE | 2024-10-31 10:45 | MHC.OFFVIS ---
Vital Signs 10/31/24 10:47 Height 5 ft Weight 301 lb BMI 58.8 BP 146/60 H Blood Pressure Location Rt brachial Position Sitting Pulse 80 Pulse Source Pulse Oximeter Pulse Oximetry (%) 95 Oxygen Delivery Method Room Air Intake Visit Reasons: abd pain Intake Note: Est pt for mgmt of chronic abd pain. Labs and imaging outstanding. CC; C.O. CIC persistence despite senna. Pt does report only taking senna every other day at most. Pt is unsure if she should take this more often or if another therapy might be necessary. Otherwise no changes. Matrix Drier Tender Required: No Accompanied by: Self / Same As Patient Allergies clindamycin (CLINDAMYCIN) Allergy (Severe, Verified 08/08/24 15:09) RASH HPI HPI abd pain: Details: LAST VISIT: Screening for colon cancer GERD (gastroesophageal reflux disease) History of Helicobacter pylori infection RUQ abdominal pain Constipation Postprandial epigastric pain Postprandial abdominal bloating Plan Patient reports epigastric pain will do H pylori in the office today and treat empirically if positive. Patient will start taking omeprazole daily. Right upper quadrant pain after and sometimes without eating. Will send her for ultrasound to rule out cholelithiasis/cholecystitis. Discussed with patient avoiding dietary triggers. Postprandial abdominal bloating with certain food. Low FODMAP discussed with patient. List of food recommended as well as a list of food to avoid given to patient. Patient will be started on senna to help her move her bowels better. Increase fluid intake and activity to promote better bowel motility. Patient is reporting severe shortness of breath when laying down, undergoing stress testing with cardiology. Will send patient to do Cologuard 1st and if it becomes positive patient will be set up for colonoscopy. Patient might require general anesthesia if she continues to have symptoms of shortness of breath. Patient is agreeable to current plan of care and verbalizes understanding of instructions. She was given the opportunity to ask questions and all questions answered. ? Thank you for allowing me to participate in her care Orders Transglutaminase IgA Today R10.9 US abdomen complete Today R10.9 H Pylori Breath Test Today K21.9 New omeprazole 20 mg PO DAILY 30 caps 3RF K21.9 sennosides (Natural Senna Laxative) 17.2 mg (2 x 8.6 mg) PO BEDTIME 60 tabs 3RF constipation K59.00 TODAY'S VISIT Patient is here today for follow-up and to discuss going for upper endoscopy and colonoscopy. Patient reports that since she started taking omeprazole her symptoms of acid reflux has subsided. She continues to have constipation and abdominal bloating. Right upper quadrant pain only occasionally. Patient is not sure if it is related to meals. Patient reports that she will pay closer attention. Patient denies melena, hematochezia, unintentional weight loss or ribbon like stools. No issues with anesthesia in the past. Patient reports that she was cleared by Cardiology and all her? Normal. Patient is currently taking Senokot as needed. Patient reports effective when she does take it. Not sure if she empties her bowels completely but she is able to have a bowel movement. History of sleep apnea. Patient is on low-dose aspirin. No family history of CRC [facility] Medical History (Updated 10/31/24 @ 13:15 by Katherine Hobbs, [facility]-) Constipation GERD (gastroesophageal reflux disease) Palpitations Dizziness Tingling sensation Back pain Walking pneumonia Stroke Lower extremity edema Essential hypertension Surgical History [place] teeth removed No pertinent past surgical history Family History Mother No problems noted. Father No problems noted. Family/Other Colon cancer Social History Household Members: Children Housing: House Alcohol intake: current Alcohol intake frequency: does not drink Patient Tobacco Use Status: Never used Tobacco e-Cigarette/Vaping Use: Never Used Second Hand Smoke Exposure: No service: No Current occupational status: unemployed Current occupational exposures/hazards: No Cognitive needs: No Hearing needs: No Vision needs: Yes (Patient wears glasses) Female Reproductive History Menstrual Age of Menarche: 9 Review of Systems Const Denies weight gain and Denies weight loss ENT Reports no additional complaints, Denies dysphagia and Denies odynophagia Card Reports no additional complaints Resp Reports no additional complaints GI Reports abdominal pain (RUQ, epigastric occasional), Denies belching, Denies melena, Reports bloating, Denies change in bowel habits, Reports constipation, Denies dysphagia, Denies excessive flatus, Denies dyspepsia, Denies heartburn, Denies diarrhea, Denies loose stools, Denies nausea, Denies odynophagia and Denies vomiting Reports no additional complaints Musc Reports no additional complaints Neuro Reports no additional complaints Psych Reports no additional complaints Endo Reports no additional complaints Physical Exam Vital Signs: Last Vital Signs Pulse 80 10/31/24 10:47 BP 146/60 H 10/31/24 10:47 Pulse Ox 95 10/31/24 10:47 Oxygen Delivery Method Room Air 10/31/24 10:47 BMI result Body Mass Index 58.8 Const General: healthy appearing and no acute distress Nutritional Appearance: well nourished and obese Orientation/consciousness: patient oriented x3 Resp Effort & Inspection: normal respiratory effort, able to speak in complete sentences, no tracheal deviation and symmetric chest movement Auscultation: clear to auscultation bilaterally Cardio Rate: regular rate GI Inspection: Yes normal to inspection, No distended and Yes obesity Palpation (GI): Soft to palpation, not firm, nontender and No hepatosplenomegaly present Auscultation: normal bowel sounds General: Yes no CVA tenderness Back/Spine/Pelvis Back: no CVA tenderness Skin General skin exam: elasticity normal, turgor normal and dry skin Neuro General: patient oriented x3 Psych Appearance: grossly normal Mental Status: mental status grossly normal Assessment & Plan Assessment & Plan (1) Screening for colon cancer: Code(s): Z12.11 - Encounter for screening for malignant neoplasm of colon Category: Medical (2) GERD (gastroesophageal reflux disease): Code(s): K21.9 - Gastro-esophageal reflux disease without esophagitis Category: Medical Qualifiers: Esophagitis presence: esophagitis presence not specified Qualified Code(s): K21.9 - Gastro-esophageal reflux disease without esophagitis (3) Constipation: Code(s): K59.00 - Constipation, unspecified Category: Medical Qualifiers: Constipation type: slow transit constipation Qualified Code(s): K59.01 - Slow transit constipation Plan Patient will continue taking omeprazole daily. Avoid dietary triggers and late night snacking. Staying upright for minimum 3 hours after meals discussed with patient. Patient will be sent for upper endoscopy to rule out gastritis, esophagitis, Cano's, duodenitis, H pylori. Will change her bowel regimen to Dulcolax for now as she will be going for colonoscopy. Patient may use it is needed, however encouraged her to take it daily week before procedure to make sure she has a good prep. With expect before during and after procedure discussed with patient. Stressed importance of good bowel prep and clear liquid diet. Patient denies any cardiac or respiratory symptoms. No issues with anesthesia in the past. Patient is on low-dose aspirin. I will see patient after the procedure, sooner on as needed basis. Patient is agreeable to this plan and verbalizes understanding of instructions. She was given the opportunity to ask questions and all questions answered. Thank you for allowing me to participate in her care Medications: New bisacodyl (Dulcolax (bisacodyl)) 10 mg (2 x 5 mg) PO BEDTIME 180 tabs 4RF polyethylene glycol 3350 (Miralax) As directed by gastroenterology department at [facility] 238 grams PO ONCE 238 grams 0RF Z12.11 - Encounter for screening for malignant neoplasm of colon Coding Level of Care Code Est Pt Level 4 (38526) Complex EM visit Add On G2211 Diagnoses Screening for colon cancer Z12.11 Gastroesophageal reflux disease, unspecified whether esophagitis present K21.9 Esophagitis presence: esophagitis presence not specified Slow transit constipation K59.01 Constipation type: slow transit constipation Time Spent (min) 35 Comment 25 minutes spent with patient and additional 10 minutes spent reviewing her records
[2024-10-31 10:47] VITALS: BP 146/60; PULSE 80; O2SAT 95; BMI 58.8
== END 2024-10-31 11:18 | disposition home or self-care (01) ==
LOC: HO.HGI 10:40
PROVIDERS: PCP Family Medicine; Visit Provider Nurse Practitioner Family
DX: Z01.818 Encounter for other preprocedural examination (principal); Z12.11 Encounter for screening for malignant neoplasm of colon; K21.9 Gastro-esophageal reflux disease without esophagitis; K59.01 Slow transit constipation
CPT/HCPCS: 99213; G2211

== ENCOUNTER 2024-10-31 10:39 | Outpatient (REF) | payer OTHER, SELFPAY ==
--- OUTSIDE RECORDS SUMMARY | 2024-10-31 12:40 | XMS_ITS | Encounter Summary ---
Author Organization [employer] Address [address] [place] [address] Care Team Providers Care Drilling And Production Superintendent Name Role Phone Nicki Barnhart MD Primary Care Provider + Encounter Details Date Type Department Care Team (Latest Contact Info) Description 05/31/2019 Abstract [facility] CONVERSIONS Dental, Provider, DDS Social History [...] on filedocumented in this encounter Care Teams Drilling And Production Superintendent Relationship Specialty Start Date End Date Nicki Barnhart MD [address] [place] [id number] PCP - General Family Medicine 01/28/16 documented as of this encounter
== END 2024-10-31 10:40 | disposition home or self-care (01) ==
LOC: HO.LAB 10:39
PROVIDERS: PCP Family Medicine; Visit Provider Nurse Practitioner Family
DX: Z12.11 Encounter for screening for malignant neoplasm of colon (principal); K21.9 Gastro-esophageal reflux disease without esophagitis; K59.01 Slow transit constipation; R10.13 Epigastric pain; R14.0 Abdominal distension (gaseous); Z79.899 Other long term (current) drug therapy
CPT/HCPCS: 36415; 86364; 99212

== ENCOUNTER 2024-11-24 08:38 | Outpatient (AMB) | payer OTHER, SELFPAY ==
--- NOTE | 2024-11-24 08:41 | A.OFFPC_ITS ---
Vital Signs 11/24/24 08:47 11/24/24 09:00 Height 5 ft Weight 301 lb BMI 58.8 BP 140/82 H 142/78 H Blood Pressure Location Rt brachial Rt brachial Position Sitting Sitting Respiration 16 Pulse 73 Pulse Source Pulse Oximeter Temp 98 F Temp Source Temporal Artery Scan Pulse Oximetry (%) 94 Oxygen Delivery Method Room Air Intake Visit Reasons: High blood pressure Intake Note: Jessie presents in the office today for hypertension and diabetes. Question about potassium Rx. Allergies clindamycin (CLINDAMYCIN) Allergy (Severe, Verified 11/24/24 08:42) RASH Medication List - Last Reconciled 11/24/24 by Henrry Asencio MD albuterol sulfate 90 mcg/actuation 2 puffs inhalation Q4-6H PRN albuterol sulfate 90 mcg/actuation (Ventolin HFA) 2 puffs inhalation Q6H PRN aspirin 81 mg PO DAILY 90 days atorvastatin 80 mg PO QPM 90 days bisacodyl (Dulcolax (bisacodyl)) 10 mg (2 x 5 mg) PO BEDTIME chlorthalidone 50 mg PO DAILY 90 days metoprolol succinate ER 50 mg PO BID 90 days naproxen 500 mg PO BID PRN 30 days omeprazole 20 mg PO DAILY polyethylene glycol 3350 (Miralax) 238 grams PO ONCE sennosides (senna) 17.2 mg (2 x 8.6 mg) PO BEDTIME triamcinolone acetonide 0.1% 1 appl topical BID 14 days Tobacco use date assessed: 11/24/24 Dental Screening Dental Screen Date: 11/24/24 Did you have a dental visit in the last 12 months?: Yes Did you have a dental problem in the last 6 months where you did not have access to dental care?: No Was dental information given to patient?: Patient has dentist HPI High blood pressure HPI Details Patient returns to follow-up hypertension and pre diabetes. Blood pressure 142/78 She is taking chlorthalidone as prescribed. She is taking metoprolol 25 mg b.i.d.. Med list recorded that she was taking 50 mg b.i.d.. A1c 6.4% today. Patient notes that her kids have bought her a treadmill. She is working on this but only about 3 minutes per work out so far. [facility] Medical History (Updated 11/24/24 @ 09:20 by Henrry Asencio MD) Constipation GERD (gastroesophageal reflux disease) Palpitations Dizziness Tingling sensation Back pain Walking pneumonia Stroke Lower extremity edema Essential hypertension Surgical History [place] teeth removed No pertinent past surgical history Family History Mother No problems noted. Father No problems noted. Family/Other Colon cancer Social History Household Members: Children Housing: House Alcohol intake: current Alcohol intake frequency: does not drink Patient Tobacco Use Status: Never used Tobacco e-Cigarette/Vaping Use: Never Used Second Hand Smoke Exposure: No service: No Current occupational status: unemployed Current occupational exposures/hazards: No Cognitive needs: No Hearing needs: No Vision needs: Yes (Patient wears glasses) Female Reproductive History Menstrual Age of Menarche: 9 Questionnaire Thrive Questionnaire Date Thrive assessed: 07/03/24 I am a: Patient What is your living situation today?: I have a steady place to live Within the past 12 months, did the food you bought not last and you didn't have the money to get more?: Never true Within the past 12 months, did you worry whether your food would run out before you got money to buy more?: Never true Do you have trouble paying for medicines?: No Do you have trouble getting transportation to medical appointments?: No Do you have trouble paying your heating and electricity bill?: Yes Do you have trouble taking care of your child, family member or friend?: No Do you have trouble with day-to-day activities such as bathing, preparing meals, shopping, managing finances, etc.?: Yes Are you currently unemployed and looking for a job?: No Are you interested in more education?: No Please select the resources that you would like help with: Utilities Currently or been in a relationship where the following occur: No concerns reported THRIVE Score: 1 PAUL-7 AMB Questionnaire PAUL-7 Date PAUL - 7 assessed: 07/04/24 Source: Developed by Drs. Markell Zhao, Torrie Georges, Ephraim Fernandes and colleagues, with an educational curry from [employer]. Review of Systems Const Denies chills, Denies fatigue, Denies fever(s), Denies headache(s) and Denies weakness ENT Denies dizziness and Denies headache(s) Card Denies chest pain, Denies lightheadedness, Denies dyspnea and Denies other (Palpitations) Resp Denies cough, Denies dyspnea, Denies wheezing and Denies other ( shortness of breath) Musc Denies numbness and Denies tingling Neuro Denies dizziness, Denies headache(s), Denies numbness, Denies tingling, Denies paresthesias and Denies weakness Psych Denies anxiety and Denies depression Endo Denies fatigue Aller/Immun Denies wheezing Physical exam (Primary Care) Vital Signs: Last Vital Signs Temp 98 F 11/24/24 08:47 Pulse 73 11/24/24 08:47 Resp 16 11/24/24 08:47 BP 142/78 H 11/24/24 09:00 Pulse Ox 94 11/24/24 08:47 Oxygen Delivery Method Room Air 11/24/24 08:47 BMI result Body Mass Index 58.8 Tobacco/Smoking Status: Tobacco use Status Tobacco use date assessed 11/24/24 11/24/24 08:50 Patient Tobacco Use Status Never used Tobacco 11/24/24 08:50 e-Cigarette/Vaping Use Never Used 11/24/24 08:50 Thrive Assessment: Date of Thrive Assessment Date Thrive assessed 07/03/24 11/24/24 08:50 Currently or been in a relationship where the following occur: No concerns reported Const General: no acute distress and well developed Nutritional Appearance: well nourished Orientation/consciousness: patient oriented x3 [facility] Head: Yes normocephalic and Yes atraumatic Eyes General: appearance normal, both eyes and all related structures Pupils: Equal, round and reactive pupils present EOM: EOMs intact bilaterally Resp Effort & Inspection: normal respiratory effort Auscultation: clear to auscultation bilaterally Cardio Rate: regular rate Rhythm: regular rhythm Heart sounds: S1 normal heart sound present, S2 normal heart sound present, no gallops, no murmurs and no rubs Neuro General: patient oriented x3 and gait normal Cranial nerves: Yes Equal, round and reactive pupils present Psych Affect: normal affect Results AMB Hemoglobin A1c AMB Hemoglobin A1c 6.4 % Last Edit by Khloe Arauz MA on 11/24/24 09:15 Results Reviewed Results Reviewed: Laboratory Last Values Hgb A1c (Clinic) 6.4 % (4.0-6.0) H 11/24/24 08:52 Coding Level of Care Code Est Pt Level 4 (10933) Diagnoses Essential hypertension I10 Pre-diabetes R73.03 Allergic rhinitis J30.9 Assessment & Plan Assessment & Plan (1) Essential hypertension: Code(s): I10 - Essential (primary) hypertension Category: Medical Plan: Blood pressure is too high. Goal is less than 140/90 She has been taking chlorthalidone 50 mg daily Med list hand metoprolol as 25 mg tablets; 2 tablets twice a day for a total 100 mg daily However, patient has been taking 1 tablet twice a day. Will change metoprolol to 50 mg tablet; take 1 tablet twice a day. (2) Pre-diabetes: Code(s): R73.03 - Prediabetes Category: Medical Plan: A1c 6.4%. Top of pre diabetes range. Encouraged a diet lower in sugars and starches Encouraged weight loss and exercise Continue using treadmill for exercise (3) Allergic rhinitis: Code(s): J30.9 - Allergic rhinitis, unspecified Category: Medical Plan: Intermittent nasal congestion and runny nose, particularly when she is in bedroom. She is to have a cat and gave it away to her daughter Use cetirizine. Nasal steroid. Orders: Orders AMB Hemoglobin A1c Today R73.03 - Prediabetes Medications: New fluticasone propionate 50 mcg/actuation (Flonase Allergy Relief) administer into each nostril 1 spray intranasal Q12H 16 grams 2RF 30 days cetirizine 10 mg PO DAILY PRN 30 tabs 3RF allergy symptoms 30 days Changed From metoprolol succinate ER 50 mg PO BID To metoprolol succinate ER 50 mg PO BID 180 tabs 3RF 90 days Refilled chlorthalidone 50 mg PO DAILY 90 tabs 2RF 90 days
[2024-11-24 08:47] VITALS: BP 140/82; PULSE 73; RESP 16; TEMP 36.6; O2SAT 94; BMI 58.8
--- OUTSIDE RECORDS SUMMARY | 2024-11-24 08:54 | XMS_ITS | Encounter Summary ---
Author Organization [employer] Address [address] [place] [address] Care Team Providers Care Paint Process Engineer Name Role Phone Nicki Barnhart MD Primary Care Provider + Encounter Details Date Type Department Care Team (Latest Contact Info) Description 05/31/2019 Abstract [facility] CONVERSIONS Dental, Provider, DDS Social [...] on filedocumented in this encounter Care Teams Paint Process Engineer Relationship Specialty Start Date End Date Nicki Barnhart MD [address] [place] [id number] PCP - General Family Medicine 01/28/16 documented as of this encounter
[2024-11-24 09:00] VITALS: BP 142/78
== END 2024-11-24 09:16 | disposition home or self-care (01) ==
LOC: HO.HMCFM 08:39
PROVIDERS: PCP Family Medicine; Visit Provider Family Medicine
DX: I10 Essential (primary) hypertension (principal); R73.03 Prediabetes; J30.9 Allergic rhinitis, unspecified

== ENCOUNTER → 2024-11-24 08:38 | Outpatient (BNVA) | payer OTHER, SELFPAY | PROVIDERS: PCP Family Medicine; Visit Provider Family Medicine | DX: I10 Essential (primary) hypertension (principal); R73.03 Prediabetes; J30.9 Allergic rhinitis, unspecified | CPT/HCPCS: 83036; 99212 ==

== ENCOUNTER 2024-12-15 15:20 | Outpatient (REF) | payer MEDICARE, MEDICAID, SELFPAY ==
--- NOTE | ~2024-12-15 | MM_ITS ---
EXAMINATION: MM SCREENING DIGITAL BREAST TOMOSYNTHESIS, BILATERAL CLINICAL INFORMATION: Screening. Asymptomatic. COMPARISON: Mammography: Comparison is made with available priors TECHNIQUE: Digital breast mammography with tomosynthesis is performed in both the craniocaudal and mediolateral oblique views along with computer-aided detection (CAD). FINDINGS: There are scattered areas of fibroglandular density (ACR BI-RADS breast composition Category b). There are no significant masses, abnormal calcifications, or other abnormalities. MM/MM tomosynthesis screening BI IMPRESSION: No mammographic evidence of malignancy. ASSESSMENT: BI-RADS BI-RADS 1 - Negative RECOMMENDATION: Routine annual mammography screening. 1 year F/U This examination should not preclude the clinical evaluation of a suspicious palpable abnormality. This patient's information was entered into a reminder system with a target due date for their next mammogram. Electronically signed by: Aelta Milligan DO 12/19/2024 11:08 AM EDT
--- OUTSIDE RECORDS SUMMARY | 2024-12-15 15:30 | XMS_ITS | Clinical Summary ---
Author Organization [employer] Address [address] [place] [address] Care Team Providers Care Production Lapping Machine Operator Name Role Phone Nicki Barnhart MD Primary [...] 1970 FIT 1970 FOBT 1970 Sigmoidoscopy 1970 Disability Screening 1970 Alcohol/Substance Use Screening 1982 Tobacco Screening 1982 Pap Smear 06/27/1991 Hepatitis B Vaccines (3 of 3 - 19+ 3-dose series) 05/27/2000 04/01/2000, 11/11/1999 Cervical Cancer Screening 2000 HPV/Cotest 2000 Mammogram 04/28/2020 04/28/2018 Pneumococcal Vaccine: 50+ Years (1 of 1 - PCV) 2020 Zoster Vaccines (1 of 2) 2020 COVID-19 Vaccine ( - 2023-2 5 season) 2023 Influenza Vaccine (#1) 2024 8, 12/19/2015, 12/27/2014 DTaP/Tdap/Td Vaccines (3 - [...] patient's age to complete this topic Meningococcal B Vaccine Aged Out No l onger eligible based on patient's age to complete [...] Recently Relevant to Health Maintenance Care Teams Production Lapping Machine Operator Relationship Specialty Start Date End Date Nicki Barnhart MD [address] [place] [id number] PCP - General Family Medicine 01/28/16
--- OUTSIDE RECORDS SUMMARY | 2024-12-15 15:30 | XMS_ITS | Encounter Summary ---
Author Organization [employer] Address [address] [facility] [address] [place] [address] Care Team Providers Care Mangle Operator Garments Name Role Phone Nicki Barnhart MD Primary Care Provider + Encounter Details Date Type Department Care Team (Latest Contact Info) Description 05/31/2019 Abstract [facility] CONVERSIONS Dental, Provider, DDS Social History [...] on filedocumented in this encounter Care Teams Mangle Operator Garments Relationship Specialty Start Date End Date Nicki Barnhart MD [address] [place] [id number] PCP - General Family Medicine 01/28/16 documented as of this encounter
== END 2024-12-15 15:21 | disposition home or self-care (01) ==
LOC: HO.MAMMO 15:20
PROVIDERS: PCP Family Medicine; Visit Provider Family Medicine
DX: Z12.31 Encounter for screening mammogram for malignant neoplasm of breast (principal)
CPT/HCPCS: 77063; 77067

== ENCOUNTER → 2024-12-15 15:30 | Outpatient (BNV) | payer MEDICARE, MEDICAID, SELFPAY | PROVIDERS: PCP Family Medicine; Visit Provider Internal Medicine | DX: Z12.31 Encounter for screening mammogram for malignant neoplasm of breast (principal) | CPT/HCPCS: 77063; 77067 ==

== ENCOUNTER 2025-02-09 14:00 | Outpatient (AMB) | payer MEDICARE, MEDICAID, SELFPAY ==
--- NOTE | 2025-02-09 14:06 | MHC.PC.OV ---
Vital Signs 02/09/25 14:09 02/09/25 14:13 Height 5 ft Weight 314 lb 6 oz BMI 61.4 BP 160/70 H 160/70 H Blood Pressure Location Rt brachial Rt brachial Position Sitting Sitting Respiration 18 Pulse 93 Pulse Source Pulse Oximeter Temp 97.4 F Temp Source Oral Pulse Oximetry (%) 96 Oxygen Delivery Method Room Air Intake Visit Reasons: f/u HTN & PreDM Allergies clindamycin (CLINDAMYCIN) Allergy (Severe, Verified 11/24/24 08:42) RASH Tobacco use date assessed: 11/24/24 Dental Screening Dental Screen Date: 11/24/24 HPI f/u HTN & PreDM HPI Details 54 y/o male presents to f/u HTN, prediabetes. Blood pressure today 160/70, 93p. Reports shoulder, arm, back pain. Also reports paresthesias bilateral hand. Also reports R sided neck pain. COUNT INCLUDES THE [facility] Medical History (Updated 02/09/25 @ 14:44 by Rogelio Celeste) Constipation GERD (gastroesophageal reflux disease) Palpitations Dizziness Tingling sensation Back pain Walking pneumonia Stroke Lower extremity edema Essential hypertension Surgical History [place] teeth removed No pertinent past surgical history Family History Mother No problems noted. Father No problems noted. Family/Other Colon cancer Social History Household Members: Children Housing: House Alcohol intake: current Alcohol intake frequency: does not drink Patient Tobacco Use Status: Never used Tobacco e-Cigarette/Vaping Use: Never Used Second Hand Smoke Exposure: No service: No Current occupational status: unemployed Current occupational exposures/hazards: No Cognitive needs: No Hearing needs: No Vision needs: Yes (Patient wears glasses) Female Reproductive History Menstrual Age of Menarche: 9 Questionnaire Thrive Questionnaire Date Thrive assessed: 07/03/24 I am a: Patient What is your living situation today?: I have a steady place to live Within the past 12 months, did the food you bought not last and you didn't have the money to get more?: Never true Within the past 12 months, did you worry whether your food would run out before you got money to buy more?: Never true Do you have trouble paying for medicines?: No Do you have trouble getting transportation to medical appointments?: No Do you have trouble paying your heating and electricity bill?: Yes Do you have trouble taking care of your child, family member or friend?: No Do you have trouble with day-to-day activities such as bathing, preparing meals, shopping, managing finances, etc.?: Yes Are you currently unemployed and looking for a job?: No Are you interested in more education?: No Please select the resources that you would like help with: Utilities Currently or been in a relationship where the following occur: No concerns reported THRIVE Score: 1 PAUL-7 AMB Questionnaire PAUL-7 Date PAUL - 7 assessed: 07/04/24 Source: Developed by Drs. Markell Zhao, Torrie Georges, Ephraim Fernandes and colleagues, with an educational curry from [employer]. Physical exam (Primary Care) Vital Signs: Last Vital Signs Temp 97.4 F 02/09/25 14:09 Pulse 93 02/09/25 14:09 Resp 18 02/09/25 14:09 BP 160/70 H 02/09/25 14:13 Pulse Ox 96 02/09/25 14:09 Oxygen Delivery Method Room Air 02/09/25 14:09 BMI result Body Mass Index 61.4 Tobacco/Smoking Status: Tobacco use Status Tobacco use date assessed 11/24/24 02/09/25 14:07 Patient Tobacco Use Status Never used Tobacco 02/09/25 14:07 e-Cigarette/Vaping Use Never Used 02/09/25 14:07 Thrive Assessment: Date of Thrive Assessment Date Thrive assessed 07/03/24 02/09/25 14:07 Currently or been in a relationship where the following occur: No concerns reported Coding Level of Care Code Est Pt Level 4 (31776) Diagnoses Essential hypertension I10 Pre-diabetes R73.03 Morbid obesity E66.01 Cervical radiculitis M54.12 Right shoulder pain M25.511 Cervicalgia M54.2 Assessment & Plan Assessment & Plan (1) Essential hypertension: Code(s): I10 - Essential (primary) hypertension Category: Medical Plan: Blood pressure is too high. Goal is less than 140/90 Continue chlorthalidone and metoprolol as prescribed Start olmesartan Return in 1 month (2) Pre-diabetes: Code(s): R73.03 - Prediabetes Category: Medical Plan: Her A1c was 5.6% less than 3 months ago. Has gained about 14 lb. She is returning in a month to follow-up on hypertension and we will recheck A1c as well. In the meantime encouraged weight loss (3) Morbid obesity: Code(s): E66.01 - Morbid (severe) obesity due to excess calories Category: Medical Plan: As above, encouraging weight loss (4) Cervical radiculitis: Code(s): M54.12 - Radiculopathy, cervical region Category: Medical (5) Right shoulder pain: Code(s): M25.511 - Pain in right shoulder Category: Medical (6) Cervicalgia: Code(s): M54.2 - Cervicalgia Category: Medical Plan Neck pain with right arm and shoulder pain as well as paresthesias at bilateral hands when lying down. Also strain at right trapezius and right side of her neck. Start physical therapy Naproxen helps during the day and she can also use this as night as long as it is not bothering her stomach. Ice/heat Encouraged weight loss Orders: Orders PT Evaluation and Treatment Today M25.511 - Pain in right shoulder, M54.12 - Radiculopathy, cervical region, M54.2 - Cervicalgia Medications: New olmesartan 20 mg PO DAILY 90 tabs 3RF 90 days Refilled chlorthalidone 50 mg PO DAILY 90 tabs 2RF 90 days
[2025-02-09 14:09] VITALS: BP 160/70; PULSE 93; RESP 18; TEMP 36.3; O2SAT 96; BMI 61.4
[2025-02-09 14:13] VITALS: BP 160/70
== END 2025-02-09 14:44 | disposition home or self-care (01) ==
LOC: HO.HMCFM 14:01
PROVIDERS: PCP Family Medicine; Visit Provider Family Medicine
DX: I10 Essential (primary) hypertension (principal); R73.03 Prediabetes; E66.01 Morbid (severe) obesity due to excess calories; Z68.44 Body mass index [BMI] 60.0-69.9, adult; M54.12 Radiculopathy, cervical region; M25.511 Pain in right shoulder; M54.2 Cervicalgia

== ENCOUNTER → 2025-02-09 14:00 | Outpatient (BNVA) | payer MEDICARE, MEDICAID, SELFPAY | PROVIDERS: PCP Family Medicine; Visit Provider Family Medicine | DX: I10 Essential (primary) hypertension (principal); R73.03 Prediabetes; E66.01 Morbid (severe) obesity due to excess calories; M54.12 Radiculopathy, cervical region; M25.511 Pain in right shoulder; M54.2 Cervicalgia; Z68.44 Body mass index [BMI] 60.0-69.9, adult; Z71.3 Dietary counseling and surveillance | CPT/HCPCS: 99212 ==